=== PATIENT | female | born 1950 | race Caucasian/White ===

== ENCOUNTER 2019-08-08 01:52 | Emergency (ER) | payer MEDICARE, SELFPAY | END 2019-08-08 04:35 | disposition home or self-care (01) | PROVIDERS: Emergency Provider Emergency Medicine; Family Provider Internal Medicine; Visit Provider Emergency Medicine | DX: R42 Dizziness and giddiness (principal); I10 Essential (primary) hypertension; E11.9 Type 2 diabetes mellitus without complications; E78.5 Hyperlipidemia, unspecified; Z86.73 Personal history of transient ischemic attack (TIA), and cerebral infarction without residual deficits; Z88.5 Allergy status to narcotic agent | CPT/HCPCS: 71045; 80053; 83690; 85025; 96361; 96374; 99284; J2405 ==

== ENCOUNTER 2019-09-11 14:00 | Outpatient (CLI) | payer MEDICARE, SELFPAY ==
--- NOTE | 2019-09-11 14:11 | MM_ITS ---
WS: [id number] BILATERAL DIGITAL SCREENING MAMMOGRAPHY WITH CAD CLINICAL INFORMATION: SCREENING HISTORY: Screening mammogram. No current complaints. COMPARISON: August 08, 2018 TECHNIQUE: Bilateral CC and MLO views. FINDINGS: The breasts are composed of heterogeneous fibroglandular density tissue, which can limit the detectio n of small underlying mass lesions. 6 mm increasing density upper outer right breast. Recommend spot compression views and ultrasound if persistent. Left breast is unchanged. MM/[place] [id number] IMPRESSION: BI-RADS: 0-Incomplete: Need additional imaging evaluation FOLLOW UP: Need Additional Imaging
== END 2019-09-11 14:01 | disposition home or self-care (01) ==
LOC: RADSHAW 14:00
PROVIDERS: Family Provider Internal Medicine; PCP Internal Medicine; Visit Provider Internal Medicine
DX: Z12.31 Encounter for screening mammogram for malignant neoplasm of breast (principal)
CPT/HCPCS: 77067

== ENCOUNTER 2019-10-03 10:09 | Outpatient (CLI) | payer MEDICARE, SELFPAY ==
--- NOTE | 2019-10-03 10:12 | US_ITS ---
WS: [id number] RIGHT DIGITAL MAMMOGRAPHY WITH CAD CLINICAL INFORMATION: ABNORMAL MAMMOGRAM COMPARISON: September 11, 2019 TECHNIQUE: 2 views of the right breast were obtained. FINDINGS: The right breast is composed of heterogeneous fibroglandular density tissue, which can limit the dete ction of small underlying mass lesions. Stable 6 mm asymmetric density upper outer right breast. This persists on spot compression views. Ult rasound is pending. ULTRASOUND BREAST RIGHT TECHNIQUE: Ultrasound right breast focused area of concern. CLINICAL INFORMATION: ABNORMAL MAMMOGRAM COMPARISON: None. FINDINGS: Ultrasound right breast at the 12:00 and 10:00 position. Hypoechoic cyst at the 10:00 position measur ing 1.4 x 0.6 x 0.7 CM with a single septation. This is probably benign and recommend 6 month follow- up diagnostic mammography and ultrasound to confirm stability. Tiny hypoechoic cystic lesions at the 12:00 position measuring 4 to 5 mm. US/US breast RT limited* [id number] IMPRESSION: BI-RADS: 3-Probably Benign FOLLOW UP: 6 Month Follow-up
== END 2019-10-03 10:10 | disposition home or self-care (01) ==
LOC: RADSHAW 10:09
PROVIDERS: Family Provider Internal Medicine; PCP Internal Medicine; Visit Provider Internal Medicine
DX: N63.11 Unspecified lump in the right breast, upper outer quadrant (principal); R92.8 Other abnormal and inconclusive findings on diagnostic imaging of breast
CPT/HCPCS: 76642; 77065

== ENCOUNTER → 2019-10-13 11:23 | Outpatient (BNVA) | payer MEDICARE, SELFPAY | PROVIDERS: Family Provider Internal Medicine; PCP Internal Medicine; Visit Provider Otolaryngology | DX: R42 Dizziness and giddiness (principal) | CPT/HCPCS: 99203 ==

== ENCOUNTER 2020-03-13 08:28 | Outpatient (CLI) | payer MEDICARE, SELFPAY ==
--- NOTE | 2020-03-13 08:33 | MM_ITS ---
WS: [id number] RIGHT DIGITAL MAMMOGRAPHY WITH CAD CLINICAL INFORMATION: 6 MO F/U RT BREAST CYST COMPARISON: September 11, 2019 TECHNIQUE: 6 views of the right breast were obtained. FINDINGS: The right breast is composed of heterogeneous fibroglandular density tissue, which can limit the dete ction of small underlying mass lesions. Stable 6 mm asymmetric density upper outer right breast appears unchanged. Ultrasound is pending. ULTRASOUND BREAST RIGHT TECHNIQUE: Ultrasound right breast focused area of concern. CLINICAL INFORMATION: 6 MO F/U RT BREAST CYST COMPARISON: October 03, 2019 FINDINGS: Ultrasound right breast at the 10-12:00 position. Again seen is the hypoechoic cyst at the 1000 posit ion with a single septation unchanged appearance since the prior examination. This measures 1.0 x 0.4 x 1.0 cm slightly decreased in size from previous. A few incidental dilated ducts at the 12:00 posit ion. Findings have a benign appearance and recommend return to annual screening mammography. MM/[place] [id number] IMPRESSION: BI-RADS: 2-Benign FOLLOW UP: 1 Year Follow-up Recommend return to annual screening mammography.
== END 2020-03-13 08:29 | disposition home or self-care (01) ==
LOC: RADSHAW 08:31
PROVIDERS: PCP Internal Medicine; Visit Provider Internal Medicine
DX: R92.8 Other abnormal and inconclusive findings on diagnostic imaging of breast (principal); N60.01 Solitary cyst of right breast
CPT/HCPCS: 76642; 77065

== ENCOUNTER 2020-07-09 14:47 | Outpatient (CLI) | payer MEDICARE, SELFPAY ==
--- NOTE | 2020-07-09 14:56 | USCV_ITS ---
Niru Bowser Age: 70 Gender: F : 1950 Exam Date: 07/09/2020 15:37 Ordering Phys: Genoveva Larsen MD Technologist: Mayo Carvalho [place]am [place] [facility] [place]: MURMUR BP: 128 / 81 HR: 82 Rhythm: Sinus Technical Quality: Fair MEASUREMENTS (Male / Female) Normal Values 2D ECHO LV Diastolic Diameter PLAX 4.5 cm 4.2 - 5.9 / 3.9 - 5.3 cm LV Systolic Diameter PLAX 2.7 cm IVS Diastolic Thickness 1.2 cm 0.6 - 1.0 / 0.6 - 0.9 cm IVS Systolic Thickness 1.8 cm LVPW Diastolic Thickness 1.1 cm 0.6 - 1.0 / 0.6 - 0.9 cm LVPW Systolic Thickness 1.7 cm LVOT Diameter 2.1 cm LV Ejection Fraction 2D Teich 71.4 % LV Ejection Fraction MOD 2C 59.2 % LV Ejection Fraction 2C AL 58.3 % LA Diameter 3.6 cm LA Width 3.4 cm LA Height 4.6 cm RA Width 4.0 cm RA Height 4.4 cm Aorta at Sinotubular Diameter 3.2 cm M-MODE LV Diastolic Diameter MM 5.3 cm 4.2 - 5.9 / 3.9 - 5.3 cm LV Systolic Diameter MM 3.5 cm LV Ejection Fraction MM Teich 63.9 % IVS Diastolic Thickness MM 0.8 cm 0.6 - 1.0 / 0.6 - 0.9 cm IVS Systolic Thickness MM 1.2 cm LVPW Diastolic Thickness MM 1.3 cm 0.6 - 1.0 / 0.6 - 0.9 cm LVPW Systolic Thickness MM 1.7 cm RV Diastolic Diameter MM 1.1 cm Aortic Annulus Diameter 3.4 cm LA Ao Ratio MM 1.2 MV E Point Septal Separation 1.0 cm DOPPLER AV Peak Velocity 169.0 cm/s LVOT Peak Velocity 108.0 cm/s AV Area Cont Eq vti 2.5 cm squared AV Area Cont Eq pk 2.2 cm squared MV Area PHT 5.4 cm squared Mitral E to A Ratio 0.5 MV E' Velocity 31.0 cm/s Mitral E to MV E' Ratio 10.9 Mitral E to LV E' Lateral Ratio 9.9 Mitral E to LV E' Septal Ratio 12.4 TR Peak Velocity 146.0 cm/s TR Peak Gradient 8.5 mmHg TV Peak E Velocity 66.0 cm/s Right Atrial Pressure 3.0 mmHg Pulmonary Artery Systolic Pressu 11.5 mmHg FINDINGS Left Ventricle Normal left ventricular size, systolic function and wall thickness, with no regional wall motion abnormalities. Left ventricular ejection fraction is estimated at 60 %. Grade I diastolic dysfunction (abnormal relaxation filling pattern), normal to mildly elevated filling pressures. Right Ventricle Normal right ventricular size and systolic function. Right ventricular systolic pressure 11.5 mmHg. Right Atrium Normal right atrial size. Left Atrium Normal left atrial size. Mitral Valve Structurally normal mitral valve. No mitral valve stenosis. No significant mitral valve regurgitation. Aortic Valve Structurally normal trileaflet aortic valve. No aortic valve stenosis. Trace aortic valve regurgitation. Tricuspid Valve Structurally normal tricuspid valve. No tricuspid valve stenosis. Trace tricuspid valve regurgitation. Pulmonic Valve Pulmonic valve not well visualized. Trace pulmonary valve regurgitation. Pericardium No pericardial effusion. Aorta Normal size aortic root and proximal ascending aorta. CONCLUSIONS 1. Normal left ventricular size, systolic function and wall thickness, with no regional wall motion abnormalities. Left ventricular ejection fraction is estimated at 60 %. Grade I diastolic dysfunction (abnormal relaxation filling pattern), normal to mildly elevated filling pressures. 2. No significant valvular abnormality. 3. Normal pulmonary artery pressure. 4. No prior similar studies to compare. Serina Childers MD (Electronically Signed) Final Date: 15 July 2020 06:04 S
== END 2020-07-09 14:48 | disposition home or self-care (01) ==
LOC: US 14:50
PROVIDERS: PCP Internal Medicine; Visit Provider Internal Medicine
DX: R01.1 Cardiac murmur, unspecified (principal); I10 Essential (primary) hypertension
CPT/HCPCS: 93306

== ENCOUNTER 2020-07-14 15:52 | Inpatient (IN) | payer MEDICARE, SELFPAY ==
[2020-07-14] VITALS (9 sets, daily range): BP systolic 161–200; BP diastolic 82–142; PULSE 92–107; RESP 16–18; TEMP 36.1; O2SAT 93–99; BMI 36.6
--- NOTE | 2020-07-14 17:17 | CTR_ITS ---
PROCEDURE INFORMATION: Exam: CT Abdomen And Pelvis With Contrast Exam date and time: 07/14/2020 8:45 PM Age: 70 years old Clinical indication: Abdominal pain; Generalized; Prior surgery; Surgery date: 6+ months; Surgery type: Myofascial sarcoma; Patient HX: C/O abd pain - distention - n/v TECHNIQUE: Imaging protocol: Computed tomography of the abdomen and pelvis with intravenous contrast. Radiation optimization: All CT scans at this facility use at least one of these dose optimization techniques: automated exposure control; mA and/or kV adjustment per patient size (includes targeted exams where dose is matched to clinical indication); or iterative reconstruction. Contrast material: OMNI 300; Contrast volume: 95 ml; Contrast route: INTRAVENOUS (IV); COMPARISON: CT abdomen pelvis wo con [id number] 07/15/2018 3:10 PM RADIATION DOSE METRICS: Total DLP (mGy-cm): 1103.84 FINDINGS: Lungs: Mild atelectasis at the lung bases. Liver: Decreased hepatic density is noted, consistent with hepatic steatosis. Gallbladder and bile ducts: No calcified stones. No ductal dilation. Pancreas: The pancreas is normal in appearance. No pancreatic duct dilatation. Spleen: Unremarkable. No splenomegaly. Adrenal glands: The adrenal glands appear within normal limits. Kidneys and ureters: 4.1 cm minimally septated, benign-appearing right renal cyst. No hydronephrosis. Incidental note made of duplex right renal collecting system. Stomach and bowel: Multiple dilated small bowel loops with air-fluid levels. The distal small bowel demonstrates mural thickening and mucosal enhancement, as it tapers to a smaller caliber. This suggests nonspecific inflammation of the distal small bowel, resulting small bowel obstruction. No acute abnormality/inflammatory change of the colon. Appendix: The appendix is normal in appearance. No evidence of appendicitis. Intraperitoneal space: No pneumoperitoneum. No significant fluid collection. Vasculature: Mild atherosclerosis of the abdominal aorta. No aneurysm. Lymph nodes: No pathologically enlarged lymph nodes are demonstrated. Urinary bladder: Unremarkable as visualized. Reproductive: The uterus is not visualized, consistent with hysterectomy. Bones/joints: Mild degenerative spine changes. No acute osseous abnormality. Soft tissues: Unremarkable. CT/CT abdomen pelvis w con* [id number] IMPRESSION: 1. Multiple dilated small bowel loops with air-fluid levels. The distal small bowel demonstrates mural thickening and mucosal enhancement, as it tapers to a smaller caliber. This suggests nonspecific inflammation of the distal small bowel, resulting small bowel obstruction. No small bowel perforation demonstrated. No abscess. 2. Decreased hepatic density is noted, consistent with hepatic steatosis. COMMENTS: Consistent with the [employer]'s Incidental Findings Committee white paper (J Am No Radiol 2018): Any incidental renal lesion less than 1 cm or classified as too small to characterize, or any incidental cystic renal lesion characterized as simple-appearing, is likely benign. No follow-up imaging is recommended for these lesions per consensus recommendations based on imaging criteria. Radiation Dose CTDIVOL = (mGy): DLP = 1103.84 (mGy-cm)
[2020-07-14] MEDS: ondansetron 2 mg/ML SDV 2 mL 4 MG IVP ×2 (18:28→20:45)
[2020-07-14] MEDS: labetalol 5 mg/mL SDV 20mL 10 MG IVP (18:29)
--- NOTE | 2020-07-14 18:31 | W.ED.ABDPA2 ---
HPI - Abdominal Pain General: Chief Complaint: Abdominal Pain Stated Complaint: ABDOMEN PAIN, CONSTIPATION Time Seen by Provider: 07/14/20 16:57 History of Present Illness: HPI narrative: 70-year-old female with belly pain that is diffuse, with some constipation symptoms. She notes that even with intake of water, but tries to come back up . She is worried, that I have a blockage . No fever. She did use a suppository last night with some production of stool. She notes some red blood with the stool. She has a history of an abdominal mass removal. MD elicited complaint: abdominal pain Pertinent past history: constipation and other Onset (ago): day(s) (1-2) Pain Consistency: constant Location: Diffuse Quality: aching and fullness Radiation: none Migration to: no migration Relieving factors: nothing Associated Symptoms: Reports belching, constipation and GI cramping; Denies dysuria, fever(s) and hematuria Review of Systems Const: Denies: fever(s) Eyes: Denies: change in vision ENMT: Denies: odynophagia or sinus pain Card: Denies: chest pain, palpitations or irregular heart rhythm Resp: Denies: dyspnea, productive cough, non-productive cough or wheezing GI: Reports: constipation, GI cramping and belching : Denies: dysuria or hematuria Musc: Reports: back pain; Denies: neck pain Skin/Breast: Denies: rash or erythema Neuro: Denies: headache(s), dizziness or vertigo Psych: Denies: anxiety PFSH ED PFSH: Medical History (Updated 07/15/20 @ 00:44 by Ivan Simth DO) Vertigo Family History Mother , AT AGE 73-DIABETES,THYROID DISEASE Diabetes Father , FATHER AT AGE 85-DIABETES Diabetes Social History Smoking and tobacco status: never smoked Alcohol intake: never Physical Exam Const: GENERAL APPEARANCE: ill appearing ORIENTATION/CONSCIOUSNESS: Yes oriented to person, Yes oriented to place and Yes oriented to time HENMT: COMMON NORMALS: normocephalic, external ears normal and Normal external nose present HEAD & SCALP: normocephalic FACE & SINUS: normal facial exam NOSE: Normal external nose present and No nasal discharge present EXTERNAL EAR: Yes external ears normal Eye: COMMON NORMALS: Equal, round and reactive pupils present, EOMs intact bilaterally and conjunctivae normal EYELID: eyelids normal CONJUNCTIVA: Yes conjunctivae normal PUPIL: Yes Equal, round and reactive pupils present Neck/C-Spine: GENERAL: No tracheal deviation Chest: COMMONS NORMALS: normal inspection of the chest CHEST: No tenderness Resp: COMMON NORMALS: clear to auscultation bilaterally EFFORT & INSPECTION: No tachypneic, No respiratory distress, No retractions, No uses accessory muscles and No tracheal deviation AUSCULTATION: clear to auscultation bilaterally, no rhonchi, no wheezes and lung sounds not diminished Cardio: COMMON NORMALS: regular rate and regular rhythm RATE: regular rate RHYTHM: regular rhythm HEART SOUNDS: no murmurs PERIPHERAL PULSES: radial pulses present GI: INSPECTION: Yes abdominal distension AUSCULTATION: No Hyperactive bowel sounds present and Yes Hypoactive bowel sounds present PALPATION: Yes Guarding due to palpation present (GI) and No Rigid due to palpation PERCUSSION: no dullness to percussion and tympanic to percussion Neuro: SENSORIUM/ORIENTATION: Yes oriented to person, Yes oriented to place and Yes oriented to time Psych: COMMON NORMALS: mental status grossly normal Skin: COMMON NORMALS: no rashes or lesions noted GENERAL SKIN EXAM: no rashes or lesions noted Course Consultations: Consultation #1: rajan Consultation #2: renard Vital Signs: Vital signs: Vital Signs Temperature 97.0 F L 07/14/20 16:11 Pulse Rate 101 H 07/15/20 00:00 Respiratory Rate 17 07/15/20 00:00 Blood Pressure 152/84 07/15/20 00:00 Pulse Oximetry 94 07/15/20 00:00 MDM - Abdominal Pain MDM Narrative: Medical decision making narrative: 70-year-old female with belly pain and distention as well as vomiting. White blood cell count 11. By CT, she has a focally inflamed segment of small bowel causing a high-grade bowel obstruction. NG tube was placed in the ER. Surgery has been consulted.. Awaiting hospitalist admission. Lab Data: Labs: Lab Results 07/14/20 07/14/20 07/14/20 Range/Units 18:00 20:27 20:27 WBC 11.0 H (4.0-10.0) 10^3/ uL RBC 5.23 (4.1-5.3) 10^6/u L Hgb 14.1 (11.5-15.3) g/dL Hct 45.8 (37.0-47.0) % MCV 87.6 (81-99) fL MCH 27.0 L (28.0-34.0) pg MCHC 30.8 (30.0-36.0) g/dL RDW 15.3 H (12.1-15.1) % Plt Count 236 (130-400) 10^3/c mm MPV 10.7 H (7.4-10.4) fL Neut % (Auto) 81.2 % Lymph % (Auto) 11.7 % Hooker % (Auto) 5.7 % Eos % (Auto) 1.0 % Baso % (Auto) 0.2 % Neut # (Auto) 8.91 H (1.8-7.7) 10^3/u L Lymph # (Auto) 1.3 (0.8-4.8) 10^3/u L Hooker # (Auto) 0.6 (0.2-0.9) 10^3/u L Eos # (Auto) 0.1 (0.0-0.8) 10^3/u L Baso # (Auto) 0.0 (0.0-0.1) 10^3/u L Nucleated RBC % (a uto) 0 % Nucleated RBCs # 0.0 /100WBC Sodium 139 (136-145) mmol/L Potassium 3.8 (3.5-5.1) mmol/L Chloride 100 (98-107) mmol/L Carbon Dioxide 30 H (22-29) mmol/L Anion Gap 12.8 (5-19) BUN 17 (8-23) mg/dL Creatinine 0.7 (0.5-0.9) mg/dL GFR Calculation Not Reportable Glucose 179 H (65-115) mg/dL Calculated Osmolal ity 294 (285-295) mOsm/k g Calcium 9.2 (8.5-10.5) mg/dL Total Bilirubin 0.4 (0.15-1.2) mg/dL AST 16 (0-32) U/L ALT 22 (0-33) U/L Alkaline Phosphata se 87 (35-105) IU/L C-Reactive Protein 29.5 H (0.0-4.9) mg/L Total Protein 6.4 L (6.6-8.7) g/dL Albumin 3.6 (3.5-5.2) g/dL Globulin 2.8 (1.3-4.6) g/dL Lipase 31 (13-60) U/L Urine Color Yellow (Yellow) Urine Appearance Cloudy (CLEAR) Urine pH 5 (5-7) Ur Specific Gravit y 1.020 (1.005-1.030) Urine Protein Trace (Negative) Urine Glucose (UA) Norm (Normal) Urine Ketones Negative (Negative) Urine Blood Neg (Negative) Urine Nitrate Negative (Negative) Urine Bilirubin Neg (Negative) Urine Urobilinogen Norm (Negative) mg/dL Ur Leukocyte Keke ase 2+ H (Negative) Urine RBC 0-4 H (0-2) /hpf Urine WBC 25-40 H (0-5) /hpf Ur Squamous Epith Cells 10-15 H (0-5) /hpf Calcium Oxalate Cr ystal 80-100 H /hpf Amorphous Sediment Not Reportable Urine Bacteria 1+ H (NONE) /hpf Discharge Plan Discharge Patient Disposition: Admitted As Inpatient Clinical Impression: Small bowel obstruction Condition: Stable Coding Level of Care Code ED Patient Safety Tech for Nataliia Fwd Exam Comprehensive
[2020-07-14] MEDS: fentaNYL 50 mcg/mL INJ 2mL IVP (18:33)
[2020-07-14] MEDS: sodium chloride 0.9% 1,000 ML 999 ML IV (18:36)
[2020-07-14] MEDS: hyDRALAzine 20 mg/mL INJ 1 mL IVP (19:30)
[2020-07-14] MEDS: amlodipine 10 mg Tablet PO (19:30)
[2020-07-14] MEDS: nitroglycerin 1 gm/inch oint Pkt 2 INCH TOPICAL (19:32)
[2020-07-14 20:43] LABS: Basophils % 0.2 %; Eosinophils # 0.1 10^3/uL (0.0-0.8); Hematocrit 45.8 % (37.0-47.0); Hemoglobin 14.1 g/dL (11.5-15.3); Lymphocytes # 1.3 10^3/uL (0.8-4.8); Lymphocytes % 11.7 %; Mean Corpuscular HGB Conc 30.8 g/dL (30.0-36.0); Mean Corpuscular Volume 87.6 fL (81-99); Mean Platelet Volume 10.7 fL (7.4-10.4); Monocytes # 0.6 10^3/uL (0.2-0.9); Monocytes % 5.7 %; Neutrophils # 8.91 10^3/uL (1.8-7.7); Neutrophils % 81.2 %; Nucleated Red Blood Cells % 0 %; Platelet Count 236 10^3/cmm (130-400); Red Blood Count 5.23 10^6/uL (4.1-5.3); Red Cell Distribution Width 15.3 % (12.1-15.1)
[2020-07-14 21:22] LABS: Alanine Aminotransferase 22 U/L (0-33); Albumin Level 3.6 g/dL (3.5-5.2); Alkaline Phosphatase 87 IU/L (35-105); Aspartate Amino Transferase 16 U/L (0-32); Blood Urea Nitrogen 17 mg/dL (8-23); C Reactive Protein 29.5 mg/L (0.0-4.9); Calcium 9.2 mg/dL (8.5-10.5); Carbon Dioxide 30 mmol/L (22-29); Chloride 100 mmol/L (98-107); Globulin 2.8 g/dL (1.3-4.6); Glucose 179 mg/dL (65-115); Lipase 31 U/L (13-60); Osmolality Calculated 294 mOsm/kg (285-295); Sodium 139 mmol/L (136-145); Total Bilirubin 0.4 mg/dL (0.15-1.2); Total Protein 6.4 g/dL (6.6-8.7)
[2020-07-14] MEDS: iohexol 300 mg/mL 100 mL Btl IV (21:38)
[2020-07-14 21:40] LABS: Anion Gap 12.8 (5-19); Potassium 3.8 mmol/L (3.5-5.1)
[2020-07-14 21:42] LABS: Add Urine Microscopic? YES; Bilirubin Urine Neg (Negative); Blood Urine Neg (Negative); Glucose Urine UA Norm (Normal); Ketones Urine Negative (Negative); Leukocyte Esterase Urine 2+ (Negative); Nitrate Urine Negative (Negative); Protein Urine Trace (Negative); Urine Appearance Cloudy (CLEAR); Urine Color Yellow (Yellow); Urobilinogen Urine Norm (Negative); pH Urine 5 (5-7)
[2020-07-14 21:52] LABS: Add Urine Culture? No; Bacteria Urine 1+ /hpf; Calcium Oxalate Crystals Urine 80-100 /hpf; RBC Urine 0-4 /hpf (0-2); WBC Urine 25-40 /hpf (0-5)
--- NOTE | 2020-07-14 23:22 | XR_ITS ---
WS: [id number] XR chest 1V portable [id number] REASON FOR EXAM: ng tube FINDINGS: Nasogastric tube is in place the tip is in position consistent with the body of the stomach. Other than the nasogastric tube, the chest is unchanged compared to previous examination of 9. Thoracic aorta is mildly tortuous. The heart size is normal. Mild prominence of the interstitial bronchovascular markings. Probable small area of linear atelectas is in the left lower lung, otherwise no acute pulmonary parenchymal or pleural abnormality noted. XR/XR chest 1V portable [id number] IMPRESSION: Nasogastric tube placement as above. No acute chest abnormality.
[2020-07-14] MEDS: cetacaine Spray 5 gm Can 1 SPRAY TOPICAL (23:24)
[2020-07-15] VITALS (14 sets, daily range): BP systolic 121–187; BP diastolic 73–104; PULSE 101–118; RESP 16–18; TEMP 36.6–38.2; O2SAT 90–94
[2020-07-15] MEDS: promethazine 25 mg/mL SDV 1 mL IM (00:32)
[2020-07-15] MEDS: piperacillin-tazobactam 3.375 GM in sodium chloride 0.9% (plus) 50 ML IV (01:27)
--- NOTE | 2020-07-15 01:27 | PM.HP ---
Providers/Chief Complaint Primary Care Provider: Genoveva Larsen MD Chief Complaint: ABDOMEN PAIN, CONSTIPATION History of Present Illness Niru Bowser is a 70 year old female with past medical history of hypothyroidism, hypertension,and with chief complaint of worsening generalized abdominal pain for the last 2 days, as well as nausea and vomiting as well as some constipation, she is unable to keep anything down. She has a prior history of abdominal mass surgery(in 2016 details of which are not available at this present time). She is also complaining of occasional minimal bright red blood in the stool. Upon arrival in the ER: CT abdomen pelvis w con: Multiple dilated small bowel loops with air-fluid levels. The distal small bowel demonstrates mural thickening and mucosal enhancement, as it tapers to a smaller caliber. This suggests nonspecific inflammation of the distal small bowel, resulting small bowel obstruction. No small bowel perforation demonstrated. No abscess. Pertinent labs: WBC : 05136 , urinalysis: Dirty: Urine leukocyte esterase positive, urine WBC: 25-40 Lactic acid: 1.4, lipase: 31 NG tube was placed in the ER, and placed to continuous suction.She received a dose of zosyn in ER. Review of Systems Const: Denies: fever(s) or chills Card: Denies: palpitations, edema, swelling of feet/ankles or leg pain with exertion Resp: Denies: dyspnea, productive cough, wheezing or pain on inspiration : Denies: flank pain Musc: Denies: back pain, extremity pain or extremity swelling Neuro: Denies: headache(s), difficulty walking or confusion Medications/Allergies Home Medications Medication Instructions Recorded Confirmed Last Taken Type ciprofloxacin 0.3 %-dexamethasone 4 drop EAR-BOTH BID@0800,1800 10/13/19 07/14/20 07/13/20 History 0.1 % ear drops,suspension levothyroxine 50 mcg capsule 50 mcg PO DAILY@0500 10/13/19 07/14/20 07/14/20 History rosuvastatin 5 mg tablet 5 mg PO DAILY@0900 10/13/19 07/14/20 07/14/20 History hydrochlorothiazide 25 mg PO DAILY@0900 07/14/20 07/14/20 07/14/20 History metoprolol tartrate 25 mg PO BID@0900,2100 07/14/20 07/14/20 07/14/20 History Allergies Allergy/AdvReac Type Severity Reaction Status Date / Time ciprofloxacin [From Cipro] Allergy Unknown Verified 08/07/19 16:18 codeine Allergy Unknown Verified 08/07/19 16:18 hydrochlorothiazide Allergy Unknown Verified 08/07/19 16:18 [From Hyzaar] losartan Allergy unknown Verified 08/07/19 16:18 meperidine [From Demerol] Allergy Unknown Verified 08/07/19 16:19 Opioids-Meperidine and Allergy unknown Verified 08/07/19 16:18 Related quinapril Allergy unknown Verified 08/07/19 16:18 tramadol Allergy Unknown Verified 08/07/19 16:18 PFSH Acute PFSH: Medical History (Updated 07/15/20 @ 07:12 by Eyal Merchant MD) Diabetes Diet controlled Hypertension Hypothyroidism Vertigo Surgical History (Updated 07/15/20 @ 07:12 by Eyal Merchant MD) Abdominal tumor Operated on by gynecologic surgeon in [place] 2016 History of bladder suspension procedure History of hysterectomy / BSO Normal colonoscopy 2016 ([place]) Family History Mother , AT AGE 73-DIABETES,THYROID DISEASE Diabetes Father , FATHER AT AGE 85-DIABETES Diabetes Social History Smoking and tobacco status: never smoked Alcohol intake: never Vitals/I&O/Wt Last Vital Signs Temp 97.0 F L 07/14/20 16:11 Pulse 101 H 07/15/20 00:00 Resp 17 07/15/20 00:00 BP 152/84 07/15/20 00:00 Pulse Ox 94 07/15/20 00:00 07/14/20 07/14/20 07/15/20 14:59 22:59 06:59 Intake Total 1000 / 1000 Balance 1000 / 1000 Weight last 48 hrs Weight 90.718 kg Physical Exam Const: COMMON NORMALS: patient oriented x3 HENMT: COMMON NORMALS: normocephalic and atraumatic HEAD & SCALP: normocephalic and atraumatic Eye: COMMON NORMALS: no scleral icterus Chest: COMMONS NORMALS: normal inspection of the chest CHEST: Yes Symmetrical chest wall rise Resp: COMMON NORMALS: normal respiratory effort and clear to auscultation bilaterally EFFORT & INSPECTION: Yes symmetric chest movement AUSCULTATION: clear to auscultation bilaterally Cardio: COMMON NORMALS: regular rate, regular rhythm, S1 normal heart sound present, S2 normal heart sound present, No gallops present (Cardio), No murmurs present (Cardio), No rub (Cardio) and Peripheral pulses 2+ throughout RATE: regular rate RHYTHM: regular rhythm HEART SOUNDS: S1 normal heart sound present and S2 normal heart sound present PERIPHERAL PULSES: Peripheral pulses 2+ throughout GI: COMMON NORMALS: no masses INSPECTION: Yes normal to inspection AUSCULTATION: Yes Hypoactive bowel sounds present RECTAL EXAM: deferred OTHER: Generalized abdominal tenderness present , no guarding no rigidity, no rebound tenderness.Hypoactive BS present. : COMMON NORMALS: Yes no CVA tenderness BLADDER/KIDNEY EXAM: Yes no CVA tenderness Back/Pelvis: COMMON NORMALS: no CVA tenderness Extremity: COMMON NORMALS: no clubbing, cyanosis or edema and no pedal edema Neuro: COMMON NORMALS: patient oriented x3 Data : 07/14/20 20:27 07/15/20 05:42 A&P Assessment and plan (1) Small bowel obstruction: CT abdomen pelvis w con: Multiple dilated small bowel loops with air-fluid levels. The distal small bowel demonstrates mural thickening and mucosal enhancement, as it tapers to a smaller caliber. This suggests nonspecific inflammation of the distal small bowel, resulting small bowel obstruction. No small bowel perforation demonstrated. No abscess. Patient complaining of generalized abdominal pain, nausea and vomiting/Has hypoactive B/S likely ileus no clear definitive sign of obstruction on C.T abdomen Will continue NG tube to suction. N.p.o. Surgery consult. 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 Status: Acute (4) Hypertension: Continue hydrochlorothiazide and metoprolol Status: Acute (5) Hypothyroidism: Continue levothyroxine Status: Acute Additional A&P Information DVT prophylaxis: Lovenox 40 subcu daily CODE STATUS: Full code Attestations Medical Necessity Statement*: Patient needs to be in the hospital for the management of Ileus.Anticipated length of stay greater then 2 midnights. 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
[2020-07-15 02:01] LABS: Lactate (Lactic Acid level) 1.4 mmol/L (0.5-2.2)
[2020-07-15] MEDS: cefTRIAXone 1,000 MG in sodium chloride 0.9% (plus) 50 ML 100 MG IV (03:21)
[2020-07-15] MEDS: enoxaparin 40 mg/0.4 mL Syringe SUBCUT (03:22)
[2020-07-15] MEDS: sodium chloride 0.9% 1,000 ML 75 ML IV (03:29)
[2020-07-15] MEDS: levothyroxine 50 mcg Tablet PO (05:10)
[2020-07-15 06:19] LABS: Alanine Aminotransferase 18 U/L (0-33); Albumin Level 3.6 g/dL (3.5-5.2); Alkaline Phosphatase 77 IU/L (35-105); Anion Gap 12.9 (5-19); Aspartate Amino Transferase 11 U/L (0-32); Blood Urea Nitrogen 19 mg/dL (8-23); Calcium 9.1 mg/dL (8.5-10.5); Carbon Dioxide 30 mmol/L (22-29); Chloride 103 mmol/L (98-107); Globulin 2.1 g/dL (1.3-4.6); Glucose 154 mg/dL (65-115); Osmolality Calculated 299 mOsm/kg (285-295); Potassium 3.9 mmol/L (3.5-5.1); Sodium 142 mmol/L (136-145); Total Bilirubin 0.3 mg/dL (0.15-1.2); Total Protein 5.7 g/dL (6.6-8.7)
--- NOTE | 2020-07-15 06:47 | P.CONIM_ITS ---
Providers/Reason For Consult Consulting Physican/Specialty*: General Surgery Eyal Merchant MD Reason for Consult*: Bowel obstruction. Attending Physician: Abner Vines MD Primary Care Provider: Genoveva Larsen MD History of Present Illness History of Present Illness Niru Bowser is a 70 year old female admitted last night with a possible small bowel obstruction. She says that she has chronic constipation, but it seemed to be a little bit worse last week. She takes prune juice and a fiber supplement every night. She said she had to use some suppositories 2 days ago in order to have a small hard bowel movement. She cannot remember the last time she passed flatus. She said she started having some abdominal pain a couple of days ago. She says it was all over . She developed some nausea and vomiting yesterday without any evidence of hematemesis. She has not had any fevers and says no one else in the household has been ill. A CAT scan in the emergency department showed some possible inflammatory changes of the small bowel with a resulting ileus/obstructive process. A nasogastric tube was inserted and the patient was admitted. The patient says this has never happened to her before. She is feeling a little bit better this morning. Of note, the patient apparently has a history multiple medicinal adverse reactions/allergies but she cannot remember any of the effects that she had from any of the medications. Review of Systems General: Reports: 10 or more systems reviewed and unremarkable except in HPI and below Const: Denies: fever(s) Resp: Denies: dyspnea GI: Reports: abdominal pain, nausea, vomiting and constipation (Chronic) Neuro: Reports: vertigo and other (Right-sided TMJ) Meds/Allergies Home Medications and Allergies Home Medications Medication Instructions Recorded Confirmed Last Taken Type ciprofloxacin 0.3 %-dexamethasone 4 drop EAR-BOTH BID@0800,1800 10/13/19 07/14/20 07/13/20 History 0.1 % ear drops,suspension levothyroxine 50 mcg capsule 50 mcg PO DAILY@0500 10/13/19 07/14/20 07/14/20 History rosuvastatin 5 mg tablet 5 mg PO DAILY@0900 10/13/19 07/14/20 07/14/20 History hydrochlorothiazide 25 mg PO DAILY@0900 07/14/20 07/14/20 07/14/20 History metoprolol tartrate 25 mg PO BID@0900,2100 07/14/20 07/14/20 07/14/20 History Allergies Allergy/AdvReac Type Severity Reaction Status Date / Time ciprofloxacin [From Cipro] Allergy Unknown Verified 08/07/19 16:18 codeine Allergy Unknown Verified 08/07/19 16:18 hydrochlorothiazide Allergy Unknown Verified 08/07/19 16:18 [From Hyzaar] losartan Allergy unknown Verified 08/07/19 16:18 meperidine [From Demerol] Allergy Unknown Verified 08/07/19 16:19 Opioids-Meperidine and Allergy unknown Verified 08/07/19 16:18 Related quinapril Allergy unknown Verified 08/07/19 16:18 tramadol Allergy Unknown Verified 08/07/19 16:18 Current Medications Current Medications Generic Name Dose Route Start Last Admin Trade Name Freq PRN Reason Stop Dose Admin Enoxaparin Sodium 40 mg 07/15/20 02:00 07/15/20 03:22 Enoxaparin 40 Mg/0.4 Ml Syringe SUBCUT 40 mg Q24H JOSE LUIS Administration Sodium Chloride 1,000 mls @ 75 mls/hr 07/15/20 01:30 07/15/20 03:29 Sodium Chloride 0.9% IV 75 mls/hr .[id number] JOSE LUIS Administration Ceftriaxone Sodium 1,000 mg/ 50 mls @ 100 mls/hr 07/15/20 02:00 07/15/20 03:21 Sodium Chloride IV 100 mls/hr Q24H JOSE LUIS Administration Protocol Levothyroxine Sodium 50 mcg 07/15/20 05:00 07/15/20 05:10 Levothyroxine 50 Mcg Tablet PO 50 mcg DAILY@0500 JOSE LUIS Administration PFSH Acute PFSH: Medical History (Updated 07/15/20 @ 07:10 by Eyal Merchant MD) Diabetes Diet controlled Hypertension Hypothyroidism Vertigo Surgical History (Updated 07/15/20 @ 07:12 by Eyal Merchant MD) Abdominal tumor Operated on by gynecologic surgeon in [place] 2016 History of bladder suspension procedure History of hysterectomy / BSO Normal colonoscopy 2016 ([place]) Family History Mother , AT AGE 73-DIABETES,THYROID DISEASE Diabetes Father , FATHER AT AGE 85-DIABETES Diabetes Social History Smoking and tobacco status: never smoked Alcohol intake: never Vitals/I&O/Wt Last Vital Signs Temp 99.4 F 07/15/20 04:00 Pulse 103 H 07/15/20 04:00 Resp 16 07/15/20 04:00 BP 121/74 07/15/20 04:00 Pulse Ox 91 07/15/20 04:00 07/14/20 07/14/20 07/15/20 14:59 22:59 06:59 Intake Total 1000 / 1050 50 / 1050 Balance 1000 / 1050 50 / 1050 Weight last 48 hrs Weight 200 lb Physical Exam Narrative: EXAM NARRATIVE: The patient was encountered in her hospital room. She does not appear to be in any obvious distress. It somewhat difficult jayne ping her on subject when asking her questions; she tends to start talking about other issues. The pupils seem equal. No carotid bruits are heard. The lungs are clear anteriorly. The heart is regular. The abdomen is moderately obese but is soft. Bowel sounds are very infrequent. She has some scattered tenderness about the abdomen that is not always reproducible. I cannot feel any obvious masses. The extremities reveal no edema. Neurologically the patient appears to be grossly intact. Data Imaging^: CT Abd/Pel: Radiologist's impression: CT scan abdomen/pelvis 07/14/2020 IMPRESSION: 1. Multiple dilated small bowel loops with air-fluid levels. The distal small bowel demonstrates mural thickening and mucosal enhancement, as it tapers to a smaller caliber. This suggests nonspecific inflammation of the distal small bowel, resulting small bowel obstruction. No small bowel perforation demonstrated. No abscess. 2. Decreased hepatic density is noted, consistent with hepatic steatosis. A&P Assessment and plan (1) Small bowel obstruction: CT reviewed. The patient seems to have some enteritis changes in the distal small bowel. I do not see an obvious transition point. I have to wonder if this is more of an ileus given the findings on exam. She does have some possible evidence of a urinary tract infection and continues on antibiotics. Continue NG tube. I will be happy to continue following the patient while she is hospitalized. Status: Acute Consult Attestations Medical Necessity Statement: See admitting service's notation. Coding Level of Care Code Acute Office Technology Instructor for g Fwd Diagnoses Small bowel obstruction K56.526
[2020-07-15] MEDS: sodium chlor 0.45% +KCl 20 mEq 20 MEQ/1,000 ML BAG 100 MEQ IV ×2 (08:01→17:46)
[2020-07-15] MEDS: ciprofloxacin-dexameth Otic Susp 7.5 mL Btl 4 DROP EAR-BOTH ×2 (08:46→17:47)
[2020-07-15] MEDS: atorvastatin 40 mg Tablet 20 MG PO (08:47)
[2020-07-15] MEDS: metoprolol tartrate 25 mg Tablet PO ×2 (08:47→20:39)
[2020-07-15] MEDS: hydroCHLOROthiazide 25 mg Tablet PO (08:47)
[2020-07-15 09:44] LABS: Basophils % 0.3 %; Eosinophils % 0.5 %; Hematocrit 40.2 % (37.0-47.0); Hemoglobin 12.4 g/dL (11.5-15.3); Lymphocytes # 0.6 10^3/uL (0.8-4.8); Lymphocytes % 7.4 %; Mean Corpuscular HGB Conc 30.8 g/dL (30.0-36.0); Mean Corpuscular Hemoglobin 27.1 pg (28.0-34.0); Mean Corpuscular Volume 87.8 fL (81-99); Mean Platelet Volume 10.8 fL (7.4-10.4); Monocytes # 0.5 10^3/uL (0.2-0.9); Monocytes % 5.7 %; Neutrophils # 6.74 10^3/uL (1.8-7.7); Neutrophils % 85.7 %; Nucleated Red Blood Cells % 0 %; Platelet Count 230 10^3/cmm (130-400); Red Blood Count 4.58 10^6/uL (4.1-5.3); Red Cell Distribution Width 15.5 % (12.1-15.1); White Blood Count 7.9 10^3/uL (4.0-10.0)
--- NOTE | 2020-07-15 14:45 | P.PN_ITS ---
Subjective Subjective: Interval history: Patient did not have any bowel movement or flatulence since admission. c/o mild abdominal pain. No fever, chills. Noted nausea since ng clamped in am to use restroom. Vitals/I&O/Wt Last Vital Signs Temp 98.0 F 07/15/20 11:36 Pulse 112 H 07/15/20 11:36 Resp 18 07/15/20 11:36 BP 173/93 07/15/20 11:36 Pulse Ox 90 07/15/20 11:36 07/14/20 07/15/20 07/15/20 22:59 06:59 14:59 Intake Total 1000 / 1000 100 / 1100 Output Total 100 / 100 Balance 1000 / 1000 100 / 1100 -100 / -100 Weight last 48 hrs Weight 90.718 kg Physical Exam Narrative: EXAM NARRATIVE: General : alert, awake and oriented x 3, no distress HEENT: Grossly unremarkable. NG in place Chest : non-labored respiration CVS : NSR ABD : Non-distended no tenderness Ext : No edema Data : 07/15/20 09:20 07/15/20 05:42 A&P Assessment and plan (1) Small bowel obstruction: CT abdomen pelvis w con: Multiple dilated small bowel loops with air-fluid levels. The distal small bowel demonstrates mural thickening and mucosal enhancement, as it tapers to a smaller caliber. This suggests nonspecific inflammation of the distal small bowel, resulting small bowel obstruction. No small bowel perforation demonstrated. No abscess. 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 Status: Acute (4) Hypertension: Stable On HCTZ/Metoprolol at home Will use prn meds while NPO Status: Acute (5) Hypothyroidism: Continue levothyroxine Status: Acute Additional A&P Information DVT prophylaxis: Lovenox 40 SQ daily CODE STATUS: Full code Attestations Medical Necessity Statement*: Will require additional day in hospital for management of ongoing bowel obstruction. Time Spent in Patient Care: Greater than 35 minutes (>than 50% of time spent in counselling and/or direct pt care on unit) . 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
[2020-07-15] MEDS: acetaminophen 325 mg Tablet 650 MG PO (16:51)
[2020-07-16] VITALS (10 sets, daily range): BP systolic 148–193; BP diastolic 79–99; PULSE 102–118; RESP 17–19; TEMP 36.6–36.9; O2SAT 90–96
[2020-07-16] MEDS: acetaminophen 325 mg Tablet 650 MG PO (02:00)
[2020-07-16] MEDS: ondansetron 2 mg/ML SDV 2 mL 4 MG IVP (02:01)
[2020-07-16] MEDS: enoxaparin 40 mg/0.4 mL Syringe SUBCUT (02:04)
[2020-07-16] MEDS: cefTRIAXone 1,000 MG in sodium chloride 0.9% (plus) 50 ML 100 MG IV (02:07)
[2020-07-16] MEDS: levothyroxine 50 mcg Tablet PO (04:06)
[2020-07-16 05:24] LABS: Basophils % 0.3 %; Eosinophils # 0.1 10^3/uL (0.0-0.8); Hemoglobin 12.8 g/dL (11.5-15.3); Lymphocytes # 0.6 10^3/uL (0.8-4.8); Lymphocytes % 9.7 %; Mean Corpuscular HGB Conc 30.5 g/dL (30.0-36.0); Mean Corpuscular Hemoglobin 26.9 pg (28.0-34.0); Mean Corpuscular Volume 88.4 fL (81-99); Mean Platelet Volume 11.4 fL (7.4-10.4); Monocytes # 0.4 10^3/uL (0.2-0.9); Monocytes % 6.2 %; Neutrophils % 82.6 %; Nucleated Red Blood Cells % 0 %; Platelet Count 206 10^3/cmm (130-400); Red Blood Count 4.75 10^6/uL (4.1-5.3); Red Cell Distribution Width 15.6 % (12.1-15.1); White Blood Count 6.3 10^3/uL (4.0-10.0)
[2020-07-16] MEDS: sodium chlor 0.45% +KCl 20 mEq 20 MEQ/1,000 ML BAG 100 MEQ IV (05:27)
[2020-07-16 05:48] LABS: INR 1.09 (0.8-1.2); Partial Thromboplastin Time 33.5 SECONDS (23.9-36.7)
[2020-07-16 05:58] LABS: Magnesium 2.1 mg/dL (1.7-2.3)
[2020-07-16 06:01] LABS: Procalcitonin 0.17 ng/mL (0-0.5)
--- NOTE | 2020-07-16 07:44 | PM.PN ---
Subjective Subjective: Interval history: The patient says she is feeling better today. She has started to pass some flatus and is less sore in her abdomen but still has some tenderness. She would like to drink some water. Vitals/I&O/Wt Last Vital Signs Temp 98.4 F 07/16/20 04:00 Pulse 118 H 07/16/20 04:00 Resp 18 07/16/20 04:00 BP 174/91 07/16/20 04:00 Pulse Ox 90 07/16/20 04:00 07/15/20 07/16/20 07/16/20 22:59 06:59 14:59 Intake Total 1975 / 2975 1000 / 2975 Output Total 1100 / 1400 200 / 1400 100 / 100 Balance 875 / 1575 800 / 1575 -100 / -100 Weight last 48 hrs Weight 200 lb Physical Exam Narrative: EXAM NARRATIVE: Bowel sounds are a little bit more active today. She does appear to be less tender to my exam. Data : 07/16/20 04:10 07/15/20 05:42 A&P Assessment and plan (1) Small bowel obstruction: I am going to have nursing clamp the patient's NG tube and see how she does. Ambulate. Status: Acute Attestations Medical Necessity Statement*: See admitting service's notation. Coding Level of Care Code Acute Mortgage Protection Specialist for Nataliia Alcala Diagnoses Small bowel obstruction K56.609
--- NOTE | 2020-07-16 09:03 | PC.CHAP ---
Pastoral Care Encounter/Spiritual Assessment Type of Contact [] Declined paid internship visit [] Patient/Family/Request visit [] Outpatient visit [] Follow-up visit [] Physician referral [] Code/Alert [] Routine visit [] Staff referral [] Actively dying [] Patient sleeping [] Family support [] [] Out of room [] Palliative care [] [] Receiving care in room [] Pre-surgical visit [] Trauma [] Long length of stay [] ICU visit [] Other: Relational/Emotional Strength [] Patient feels connected with others/family/visitors/staff [] Distress [] Loneliness/isolation [] Abandonment Spirituality of Patient [] Person of Sheela [] Attends Rastafari of their Sheela [] Believes in Prayer [] Reads Bible or Congregation materials [] There are Spiritual issues to be addressed Stock Or Delivery Clerk Interventions [] Prayer [] Active listening [] Non-anxious presence [] Spiritual/emotional support [] Crisis/trauma care [] Spiritual counseling [] Bereavement support [] Provided bereavement packet [] Provided Bible/devotional materials [] Provided toy/stuffed animal, coloring book to patient or family member [] Provided Communion [] Anointing/[place] [] Salvation [] Completed spiritual assessment [] Other: Impact on Illness or Injury [] Angry [] Fearful [] Anxious [] Often cries [] Exhaustion [] Unable to work [] Unable to attend sikhism [] Unable to walk/stand [] Unable to read [] Unable to drive [] Unable to eat/drink [] Unable to sleep [] Unable to be with family [] Patient intubated [] Other: Summary Time spent with patient
[2020-07-16 09:09] LABS: Coronavirus Lab Test PTC Negative
[2020-07-16] MEDS: hydroCHLOROthiazide 25 mg Tablet PO (09:11)
[2020-07-16] MEDS: ciprofloxacin-dexameth Otic Susp 7.5 mL Btl 4 DROP EAR-BOTH ×2 (09:11→18:43)
[2020-07-16] MEDS: atorvastatin 40 mg Tablet 20 MG PO (09:11)
[2020-07-16] MEDS: metoprolol tartrate 25 mg Tablet PO ×2 (09:12→21:07)
--- NOTE | 2020-07-16 09:17 | XR_ITS ---
WS: [id number] XR KUB [id number] REASON FOR EXAM: Bowel obstruction FINDINGS: There are multiple gas-filled dilated loops of small bowel in the central and lower abdomen and pelvi s. There is minimal gas within the colon. No free air or retroperitoneal air. XR/XR KUB 66615 IMPRESSION: Bowel gas pattern indicates distal small bowel obstruction.
--- NOTE | 2020-07-16 09:19 | PC.NURSE ---
rcvd verbal order from Dr Birmingham to discontinue isolation precautions.
--- NOTE | 2020-07-16 18:30 | PM.PN ---
Subjective Subjective: Interval history: Late note entry for 07/16/2020 noted multiple bowel movement NG was removed. Vitals/I&O/Wt Last Vital Signs Temp 97.7 F 07/17/20 13:25 Pulse 94 07/17/20 13:25 Resp 18 07/17/20 13:25 BP 146/79 07/17/20 13:25 Pulse Ox 92 07/17/20 13:25 07/17/20 07/17/20 07/17/20 06:59 14:59 22:59 Intake Total 480 / 480 Balance 480 / 480 Physical Exam Narrative: EXAM NARRATIVE: General : alert, awake and oriented x 3, no distress HEENT: Grossly unremarkable. Chest : non-labored respiration CVS : NSR ABD : Non-distended no tenderness Ext : No edema Data : 07/17/20 04:37 07/15/20 05:42 A&P Assessment and plan (1) Small bowel obstruction: CT abdomen pelvis w con: Multiple dilated small bowel loops with air-fluid levels. The distal small bowel demonstrates mural thickening and mucosal enhancement, as it tapers to a smaller caliber. This suggests nonspecific inflammation of the distal small bowel, resulting small bowel obstruction. No small bowel perforation demonstrated. No abscess. Patient complaining of generalized abdominal pain, nausea and vomiting/Has hypoactive B/S likely ileus no clear definitive sign of obstruction on C.T abdomen Plan: NG removed CLD Repeat KUB Pain conrol Surgery on board Zofran I.V Hydration Repeat CBC, CMP in am Status: Acute (2) UTI (urinary tract infection): Will not continue at discharge. 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 Status: Acute (4) Hypertension: Stable On HCTZ/Metoprolol at home Will use prn meds while NPO Status: Acute (5) Hypothyroidism: Continue levothyroxine Status: Acute Additional A&P Information DVT prophylaxis: Lovenox 40 SQ daily CODE STATUS: Full code Attestations Medical Necessity Statement*: Will require further hospitalization for management of SBO Time Spent in Patient Care: Greater than 35 minutes (>than 50% of time spent in counselling and/or direct pt care on unit). 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
[2020-07-17] MEDS: enoxaparin 40 mg/0.4 mL Syringe SUBCUT (02:59)
[2020-07-17 03:40] VITALS: BP 160/98; PULSE 109; RESP 18; TEMP 36.7; O2SAT 96
[2020-07-17] MEDS: levothyroxine 50 mcg Tablet PO (05:07)
[2020-07-17 05:19] LABS: Basophils % 0.4 %; Eosinophils # 0.2 10^3/uL (0.0-0.8); Eosinophils % 4.3 %; Hematocrit 41.5 % (37.0-47.0); Hemoglobin 12.6 g/dL (11.5-15.3); Lymphocytes # 0.6 10^3/uL (0.8-4.8); Lymphocytes % 10.6 %; Mean Corpuscular HGB Conc 30.4 g/dL (30.0-36.0); Mean Corpuscular Hemoglobin 27.2 pg (28.0-34.0); Mean Corpuscular Volume 89.6 fL (81-99); Mean Platelet Volume 10.4 fL (7.4-10.4); Monocytes # 0.4 10^3/uL (0.2-0.9); Monocytes % 7.8 %; Neutrophils # 4.33 10^3/uL (1.8-7.7); Neutrophils % 76.7 %; Nucleated Red Blood Cells % 0 %; Platelet Count 159 10^3/cmm (130-400); Red Blood Count 4.63 10^6/uL (4.1-5.3); Red Cell Distribution Width 15.1 % (12.1-15.1); White Blood Count 5.6 10^3/uL (4.0-10.0)
--- NOTE | 2020-07-17 07:16 | PM.PN ---
Subjective Subjective: Interval history: I am ready to go home. I had nursing clamp the patient's nasogastric tube yesterday but while we were waiting to see how she did, the tube inadvertently got pulled out. It was left out and she started having large, loose bowel movements. She says she probably had 7 bowel movements yesterday. She tolerated a clear liquid diet and says that she would not mind trying something more solid. She denies abdominal pain. Vitals/I&O/Wt Last Vital Signs Temp 98.0 F 07/17/20 03:40 Pulse 109 H 07/17/20 03:40 Resp 18 07/17/20 03:40 BP 160/98 07/17/20 03:40 Pulse Ox 96 07/17/20 03:40 Physical Exam Narrative: EXAM NARRATIVE: Bowel sounds remain what I would consider to be hypoactive. She has no tenderness on exam and the abdomen is soft. Data : 07/17/20 04:37 07/15/20 05:42 A&P Assessment and plan (1) Ileus: The patient had a plain film of the abdomen yesterday which showed continued dilation of small bowel loops consistent with a distal small bowel obstruction. The patient is clearly not obstructed. The changes that have been present could certainly be consistent with a possible ileus as opposed to a true mechanical obstruction. She may be dealing with a viral syndrome of sorts. Covid testing has been negative. I am going to allow the patient a soft diet for breakfast. If she tolerates that and I think there is an option to discharge her with primary care follow-up. Status: Acute Attestations Medical Necessity Statement*: See admitting service's notation. Coding Level of Care Code Acute Cost Estimating Engineer for Nataliia Alcala Diagnoses Ileus K56.7
[2020-07-17 07:42] VITALS: PULSE 110; O2SAT 90
[2020-07-17 07:52] VITALS: BP 160/83; PULSE 107; RESP 18; TEMP 36.8; O2SAT 92
[2020-07-17] MEDS: hydroCHLOROthiazide 25 mg Tablet PO (09:14)
[2020-07-17] MEDS: metoprolol tartrate 25 mg Tablet PO (09:15)
[2020-07-17] MEDS: ciprofloxacin-dexameth Otic Susp 7.5 mL Btl 4 DROP EAR-BOTH (09:15)
[2020-07-17] MEDS: atorvastatin 40 mg Tablet 20 MG PO (09:15)
[2020-07-17 11:39] VITALS: BP 146/79; PULSE 94; RESP 18; TEMP 36.5; O2SAT 92
--- NOTE | 2020-07-17 13:06 | PC.NURSE ---
Discharge instructions given to patient. Went over instructions. All questions answered. No IV present, was removed yesterday. Patient in stable condition.
[2020-07-17 13:25] VITALS: BP 146/79; PULSE 94; RESP 18; TEMP 36.5; O2SAT 92
--- NOTE | 2020-07-17 18:34 | PM.DCS ---
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 This was associated with nausea and vomiting. upon arrival a CT abdomen pelvis with contrast was performed which showed multiple dilated small bowel loops with air-fluid levels. The distal small bowel demonstrates mural thickening and mucosal enhancement, as it tapers to a smaller caliber. This suggests nonspecific inflammation of the distal small bowel, resulting small bowel obstruction. No small bowel perforation demonstrated. No abscess. general surgery was consulted. Patient had a nasogastric tube placed in the emergency room which was continued to low intermittent suction. This was eventually clamped discontinued and patient was advanced on diet which she tolerated. General surgery cleared patient for discharge. Also to note patient was continued on IV antibiotics for suspected urinary tract infection. She completed course prior to discharge. Did not have any urinary symptoms. Remained afebrile. She was discharged in stable condition. Physical Exam Narrative: EXAM NARRATIVE: General : alert, awake and oriented x 3, no distress HEENT: Grossly unremarkable. Chest : non-labored respiration CVS : NSR ABD : Non-distended no tenderness Ext : No edema Discharge Data Data Completed and Pending: Completed Studies During Hospitalization Category Date Time Status CT abdomen pelvis w con* [id number] Urge nt Cat Scan 07/14/20 17:17 Completed XR KUB [id number] Rout ine Exams 07/16/20 09:17 Completed XR chest 1V ross ble [id number] Stat Exams 07/14/20 23:22 Completed Labs from last 24 hours 07/17/20 07/17/20 04:37 04:37 WBC 5.6 RBC 4.63 Hgb 12.6 Hct 41.5 MCV 89.6 MCH 27.2 L MCHC 30.4 RDW 15.1 Plt Count 159 MPV 10.4 Neut % (Auto) 76.7 Lymph % (Auto) 10.6 [place] % (Auto) 7.8 Eos % (Auto) 4.3 Baso % (Auto) 0.4 Neut # (Auto) 4.33 Lymph # (Auto) 0.6 L [place] # (Auto) 0.4 Eos # (Auto) 0.2 Baso # (Auto) 0.0 Nucleated RBC % (a uto) 0 Nucleated RBCs # 0.0 Magnesium 2.0 Vitals: Last Vital Signs Temp 97.7 F 07/17/20 13:25 Pulse 94 07/17/20 13:25 Resp 18 07/17/20 13:25 BP 146/79 07/17/20 13:25 Pulse Ox 92 07/17/20 13:25 Discharge Plan Discharge Patient Disposition: Home Condition: Stable Prescriptions: Continued rosuvastatin [Crestor] 5 mg tablet 5 mg PO DAILY@0900 RF: 0 levothyroxine 50 mcg capsule 50 mcg PO DAILY@0500 RF: 0 Ciprodex 0.3-0.1 % drops,suspension 4 drop EAR-BOTH BID@0800,1800 RF: 0 hydrochlorothiazide 25 mg tablet 25 mg PO DAILY@0900 RF: 0 metoprolol tartrate 25 mg tablet 25 mg PO BID@0900,2100 RF: 0 No Action Voltaren 1 % gel 4 g topical QID Qty: 100 RF: 0 Discharge Orders: Discharge Order (Routine); Ordered 07/17/20 Ordered By: Albertina Birmingham Referrals: Manoj Carmona NP [Referring] - 07/24/20 10:30 am Discharge Diet: Advance as tolerated Discharge Activity: Resume usual activity Patient Instructions: Urinary Tract Infection in Women (DC), Low Fiber Diet (GEN), Ileus (GEN) Discharge Attestations Time Spent in Discharge Care*: greater than 30 min Specific Discharge Activities: educating patient, discussing with case maker/social workers/dc planners, documenting/other paperwork and evaluating patient/reviewing data Status at Discharge: Cognitive status at discharge: cognitively intact, Behavioral status at discharge: cooperative, Functional status at discharge: independent ambulation Overall status at discharge: patient is back to baseline Quality Metrics Clinical Quality Measures During this hospital stay, did patient experience: None Coding Level of Care Code Acute Property Condition Assessor for g Fwd Diagnoses Small bowel obstruction K56.609 UTI (urinary tract infection) 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
== END 2020-07-17 13:25 | disposition home or self-care (01) | DRG 389 ==
LOC: ER 07-15 00:44 → MEDSURG 07-15 01:40
PROVIDERS: Surgery; Admitting Provider Internal Medicine; Emergency Provider Emergency Medicine; PCP Internal Medicine; Visit Provider Hospitalist
DX: K56.609 Unspecified intestinal obstruction, unspecified as to partial versus complete obstruction (principal); N39.0 Urinary tract infection, site not specified; C49.4 Malignant neoplasm of connective and soft tissue of abdomen; K56.7 Ileus, unspecified; I10 Essential (primary) hypertension; E03.9 Hypothyroidism, unspecified
CPT/HCPCS: 12345; 36415; 71045; 74018; 74177; 80053; 81001; 83605; 83690; 83735; 84145; 85025; 85610; 85730; 86140; 87635; 96372; 96375; 97161; 99283; J0360; J0696; J1650; J2405; J2543; J2550; J3010; J3490; J7030; Q9967

== ENCOUNTER 2020-07-18 09:18 | Emergency (ER) | payer MEDICARE, SELFPAY ==
[2020-07-18 09:25] VITALS: BP 162/105; PULSE 108; RESP 16; TEMP 36.8; O2SAT 93; BMI 35.6
--- NOTE | 2020-07-18 09:35 | XR_ITS ---
WS: [id number] XR foot LT min 3V* [id number] REASON FOR EXAM: pain FINDINGS: Overall moderate decrease in bony density. Mild hammertoe deformity third through the fifth left toes. Moderate joint space narrowing and subcho ndral sclerosis involving the DIP and MIP joints of the toes. Similar findings in the metatarsal phal angeal joint of the great toe with mild valgus deformity. No fracture or focal bone lesion. Mild narrowing of the joint spaces in the mid foot with mild subchondral sclerosis. There is some julien yohana spurring in the mid foot. No fracture or focal bony lesion. The joint spaces of the hindfoot are intact. No fracture or focal bone lesion. XR/XR foot LT min 3V* [id number] IMPRESSION: Findings of osteoarthropathy as above.
--- NOTE | 2020-07-18 09:36 | W.ED.EXTPRO ---
HPI - Extremity Problem General: Chief complaint: Extremity Problem,Nontraumatic Stated complaint: left foot pain Time Seen by Provider: 07/18/20 09:26 History of Present Illness: HPI Narrative: Patient complains about left foot pain that started yesterday. Said it hurt for her to put weight on her foot to move her foot around. Denies any swelling redness fever got the hospital yesterday morning to had a history of small bowel obstruction. MD Complaint: extremity pain Onset (ago): hour(s) Pain Consistency: constant Location: left and other (Foot) Severity scale (1-10): 4 Quality: stabbing and aching Radiation: none Relieving factors: immobilization Exacerbating factors: range of motion and weight bearing Associated symptoms: Reports no associated symptoms; Deny chest pain, fever(s) or rash Context: other (Recently in the hospital with small bowel obstruction) Review of Systems Const: Denies: fever(s), chills or body aches Eyes: Denies: change in vision or blurry vision ENMT: Denies: throat pain or nasal congestion Card: Denies: chest pain or dyspnea on exertion Resp: Denies: dyspnea, productive cough or non-productive cough GI: Denies: abdominal pain, nausea or vomiting Musc: Reports: extremity pain (Left foot) Skin/Breast: Denies: rash Neuro: Denies: headache(s) Psych: Denies: anxiety or depression Carlos/Lymph: Denies: easy bruising PFS ED PFSH: Medical History (Updated 07/18/20 @ 09:57 by MATT Newton) Diabetes Diet controlled Hypertension Hypothyroidism Vertigo Surgical History (Updated 07/15/20 @ 07:12 by Eyal Merchant MD) Abdominal tumor Operated on by gynecologic surgeon in [place] 2016 History of bladder suspension procedure History of hysterectomy / BSO Normal colonoscopy 2016 ([place]) Family History Mother , AT AGE 73-DIABETES,THYROID DISEASE Diabetes Father , FATHER AT AGE 85-DIABETES Diabetes Social History Smoking and tobacco status: never smoked Alcohol intake: never Physical Exam Const: COMMON NORMALS: no acute distress, average body habitus and patient oriented x3 HENMT: COMMON NORMALS: normocephalic HEAD & SCALP: normal to inspection and normocephalic FACE & SINUS: normal facial exam Eye: COMMON NORMALS: conjunctivae normal GENERAL EYE: appearance normal, both eyes and all related structures CONJUNCTIVA: Yes conjunctivae normal Neck/C-Spine: COMMON NORMALS: no JVD Chest: COMMONS NORMALS: normal inspection of the chest Resp: COMMON NORMALS: normal respiratory effort and clear to auscultation bilaterally AUSCULTATION: clear to auscultation bilaterally Cardio: COMMON NORMALS: no JVD, regular rate and regular rhythm RATE: regular rate RHYTHM: regular rhythm GI: COMMON NORMALS: Normal to inspection, nondistended, normoactive bowel sounds present Extremity: COMMON NORMALS: normal to inspection and full ROM LEFT LOWER EXTREMITY: Yes foot & digits (Tenderness throughout the foot mainly in the forefoot and the plantar surfa) Left foot and digits: Yes other (Hurts with range of motion no swelling redness positive neurovascular statu) Neuro: COMMON NORMALS: patient oriented x3 Course Vital Signs: Vital signs: Vital Signs Temperature 98.3 F 07/18/20 09:25 Pulse Rate 111 H 07/18/20 09:37 Respiratory Rate 16 07/18/20 09:25 Blood Pressure 162/105 07/18/20 09:25 Pulse Oximetry 93 07/18/20 09:37 MDM - Extremity (Nontraumatic) MDM Narrative: Medical decision making narrative: Pain most likely from plantar fasciitis from laying in bed for 3 days while in the hospital. And not having proper footwear. Does not have any signs and symptoms of clot no redness no swelling pain more with range of motion. Discharge Plan Discharge Patient Disposition: Home Clinical Impression: Plantar fasciitis of left foot Condition: Stable Prescriptions: New Voltaren 1 % gel 4 g topical QID Qty: 100 RF: 0 No Action rosuvastatin [Crestor] 5 mg tablet 5 mg PO DAILY@0900 RF: 0 levothyroxine 50 mcg capsule 50 mcg PO DAILY@0500 RF: 0 Ciprodex 0.3-0.1 % drops,suspension 4 drop EAR-BOTH BID@0800,1800 RF: 0 hydrochlorothiazide 25 mg tablet 25 mg PO DAILY@0900 RF: 0 metoprolol tartrate 25 mg tablet 25 mg PO BID@0900,2100 RF: 0 Discharge Orders: Discharge ED (Routine); Ordered 07/18/20 Ordered By: Luan Terrazas Referrals: Genoveva Larsen MD [Primary Care Provider] - Discharge Diet: Usual diet Discharge Activity: Increase activity as tolerated Patient Instructions: Plantar Fasciitis (ED) Activity Restrictions/Additional Instructions: Follow-up with medical provider as directed. Take medications as prescribed. Return to the ER or your medical provider if condition worsens. Please read and understand discharge instructions. If any questions ask please. Wear proper footwear Coding Level of Care Code ED Chemical Etching Processor for Chg Fwd Exam Comprehensive
[2020-07-18 09:37] VITALS: PULSE 100; PULSE 111; O2SAT 93
[2020-07-18] MEDS: ketorolac 60 mg/2 mL INJ IM (10:04)
[2020-07-18 10:07] VITALS: BP 167/105; PULSE 95; RESP 16; O2SAT 94
== END 2020-07-18 10:11 | disposition home or self-care (01) ==
PROVIDERS: Emergency Provider Nurse Practitioner Family; PCP Internal Medicine
DX: M72.2 Plantar fascial fibromatosis (principal); E11.9 Type 2 diabetes mellitus without complications; I10 Essential (primary) hypertension
CPT/HCPCS: 12345; 73630; 96372; 99281; 99283; J1885

== ENCOUNTER 2021-01-22 13:32 | Outpatient (CLI) | payer MEDICARE, SELFPAY ==
--- NOTE | 2021-01-22 13:39 | MM_ITS ---
WS: [id number] BILATERAL DIGITAL SCREENING MAMMOGRAPHY WITH CAD CLINICAL INFORMATION: SCREENING HISTORY: Screening mammogram. No current complaints. COMPARISON: March 13, 2020 TECHNIQUE: Bilateral CC and MLO views. FINDINGS: The breasts are composed of heterogeneous fibroglandular density tissue, which can limit the detectio n of small underlying mass lesions. A few punctate calcifications. No suspicious mass, asymmetry, jeanine cifications, or architectural distortion. No evidence of malignancy. MM/[place] [id number] IMPRESSION: BI-RADS: 2-Benign FOLLOW UP: 1 Year Follow-up Recommend return to annual screening mammography.
== END 2021-01-22 13:33 | disposition home or self-care (01) ==
LOC: RADSHAW 13:36
PROVIDERS: PCP Internal Medicine; Visit Provider Internal Medicine
DX: Z12.31 Encounter for screening mammogram for malignant neoplasm of breast (principal)
CPT/HCPCS: 77067

== ENCOUNTER 2021-02-14 08:40 | Outpatient (CLI) | payer MEDICARE, SELFPAY ==
--- NOTE | 2021-02-14 | CT_ITS ---
WS: [id number] CT CHEST, ABDOMEN, AND PELVIS TECHNIQUE: Contrast-enhanced CT of the chest, abdomen, and pelvis with coronal and sagittal reformatt ed images. CLINICAL INFORMATION: MALIGNANT NEOPLASM OF CONNECTIVE AND SOFT TISSUE UNSPECIFIED COMPARISON: CT abdomen pelvis July 14, 2020, . CT chest abdomen pelvis and DLP: 2227.[address] scans at [facility] use at least one of these dose optimization techniques: automat ed exposure control; mA and/or kV adjustment per patient size (includes targeted exams where dose is matched to clinical indication); or iterative reconstruction. CT CHEST: Moderate chronic emphysematous changes. No acute pulmonary infiltrates. Calcified granuloma right low er lobe measuring 6 mm is stable. Calcification better seen on the prior examination. Additional tiny calcified granuloma right lower lobe laterally. No other suspicious parenchymal abnormalities. No ev idence of metastatic disease in the chest. No mediastinal or hilar lymphadenopathy. Right thyroid nodule measuring 7 mm is stable. No axillary l ymphadenopathy. Aortic calcification. Coronary calcification. Hypertrophic changes thoracic spine. Moderate thoracic kyphosis. CT ABDOMEN AND PELVIS: Diffuse fatty infiltration of the liver. Normal portal vein and splenic vein. Normal spleen. Splenic granulomas. Normal GE junction. Normal gallbladder. Fatty atrophy of the pancreas. Adrenal glands are normal. Normal renal parenchymal enhancement. No hydronephrosis. Right upper pole renal cyst measuring 4.1 cm. Normal caliber abdominal aorta. Mild aortic calcificati on. Sigmoid diverticulosis. No evidence of acute diverticulitis. Scattered stool in the colon. Prior hysterectomy. No abdominal or pelvic lymphadenopathy. No inguinal lymphadenopathy. CT/CT chest abd pel w con* IMPRESSION: 1. No evidence of metastatic disease in the chest abdomen or pelvis. 2. No mediastinal or hilar lymphadenopathy. No adenopathy in the abdomen or pe lvis. 3. Diffuse fatty infiltration of the liver. 4. Prior hysterectomy. 5. Sigmoid diverticulosis. No evidence of acute diverticulitis. 6. Right renal cyst measuring 4.1 CM. No hydronephrosis in either kidney. 7. No other significant changes from the prior examinations.
[2021-02-14] MEDS: iohexol 300 mg/mL 50 mL Btl IV (09:29)
[2021-02-14 10:20] LABS: Blood Urea Nitrogen 17 mg/dL (8-23)
[2021-02-14] MEDS: iohexol 300 mg/mL 100 mL Btl IV (10:46)
== END 2021-02-14 08:41 | disposition home or self-care (01) ==
LOC: RADWPI 08:42
PROVIDERS: PCP Internal Medicine; Visit Provider Nurse Practitioner Family
DX: C49.9 Malignant neoplasm of connective and soft tissue, unspecified (principal); N28.1 Cyst of kidney, acquired; K57.30 Diverticulosis of large intestine without perforation or abscess without bleeding; Z90.710 Acquired absence of both cervix and uterus; K76.0 Fatty (change of) liver, not elsewhere classified
CPT/HCPCS: 71260; 74177; 82565; 84520; Q9967

== ENCOUNTER 2021-02-26 17:31 | Observation (INO) | payer MEDICARE, SELFPAY ==
[2021-02-26 17:52] VITALS: BP 197/101; PULSE 78; RESP 19; TEMP 37; O2SAT 99; BMI 35.6
--- NOTE | 2021-02-26 18:42 | CTR_ITS ---
PROCEDURE INFORMATION: Exam: CT Angiography Head With Contrast, Arteriography Exam date and time: 02/26/2021 6:42 PM Age: 70 years old Clinical indication: Other: Left side facial droop; Patient HX: Best images possible. 22g in hand. PT stuck multiple times. PT would not stop moving head and moaning. ; Additional info: CVA TECHNIQUE: Imaging protocol: Computed tomography angiography of the head with contrast. Exam focused on the arteries. 3D rendering (Not supervised by radiologist): MIP and/or 3D reconstructed images were created by the technologist. Total images: 800 Radiation optimization: All CT scans at this facility use at least one of these dose optimization techniques: automated exposure control; mA and/or kV adjustment per patient size (includes targeted exams where dose is matched to clinical indication); or iterative reconstruction. Contrast material: OMNI 350; Contrast volume: 95 ml; Contrast route: INTRAVENOUS (IV); COMPARISON: CT head wo con* [id number] 02/26/2021 6:59 PM RADIATION DOSE METRICS: Total DLP (mGy-cm): 2224.32 FINDINGS: ANTERIOR CIRCULATION: Right internal carotid artery: Minimal cerebral arteriosclerosis of the internal carotid artery terminus. Intracranial segment is patent with no significant stenosis. No aneurysm. Right middle cerebral artery: Unremarkable. No occlusion or significant stenosis. No aneurysm. Right anterior cerebral artery: Mildly hypoplastic right A1 segment. No occlusion or significant stenosis. No aneurysm. Left internal carotid artery: Minimal cerebral arteriosclerosis of the internal carotid artery terminus. Intracranial segment is patent with no significant stenosis. No aneurysm. Left middle cerebral artery: Unremarkable. No occlusion or significant stenosis. No aneurysm. Left anterior cerebral artery: Unremarkable. No occlusion or significant stenosis. No aneurysm. POSTERIOR CIRCULATION: Right vertebral artery: Unremarkable. No occlusion or significant stenosis. No aneurysm. Left vertebral artery: Mildly hypoplastic. No occlusion or significant stenosis. No aneurysm. Basilar artery: Unremarkable. No occlusion or significant stenosis. No aneurysm. Right posterior cerebral artery: Unremarkable. No occlusion or significant stenosis. No aneurysm. Left posterior cerebral artery: Unremarkable. No occlusion or significant stenosis. No aneurysm. IMPRESSION: 1. No large vessel stenosis or occlusion. 2. Minimal cerebral arteriosclerosis of the internal carotid artery terminus bilaterally. 3. Mildly hypoplastic right A1 segment. 4. Mildly hypoplastic distal left vertebral artery. PROCEDURE INFORMATION: Exam: CT Angiography Neck With Contrast Exam date and time: 02/26/2021 6:42 PM Age: 70 years old Clinical indication: Other: Left side facial droop; Patient HX: Best images possible. 22g in hand. PT stuck multiple times. PT would not stop moving head and moaning. ; Additional info: CVA TECHNIQUE: Imaging protocol: Computed tomography angiography of the neck with contrast. 3D rendering (Not supervised by radiologist): MIP and/or 3D reconstructed images were created by the technologist. Radiation optimization: All CT scans at this facility use at least one of these dose optimization techniques: automated exposure control; mA and/or kV adjustment per patient size (includes targeted exams where dose is matched to clinical indication); or iterative reconstruction. Contrast material: OMNI 350; Contrast volume: 95 ml; Contrast route: INTRAVENOUS (IV); COMPARISON: CT head wo con* [id number] 02/26/2021 6:59 PM RADIATION DOSE METRICS: Total DLP (mGy-cm): 2224.32 FINDINGS: Right common carotid artery: No stenosis. No dissection or occlusion. Right internal carotid artery: No stenosis of the extracranial segment. No dissection or occlusion. Right external carotid artery: No occlusion or stenosis of the origin. Left common carotid artery: No stenosis. No dissection or occlusion. Left internal carotid artery: No stenosis of the extracranial segment. No dissection or occlusion. Left external carotid artery: No occlusion or stenosis of the origin. Right vertebral artery: No stenosis. No dissection or occlusion. Left vertebral artery: No stenosis. No dissection or occlusion. Aorta: Bovine aortic arch which is a normal anatomical variant. Arteriosclerosis. Thyroid: Right thyroid nodule measuring approximately 16 mm x 9 mm x 12 mm. Further evaluation with non-emergent thyroid ultrasound is recommended. Soft tissues: Normal. No significant soft tissue swelling. Bones/joints: No visible acute osseous abnormality. 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 Spondylosis deformans upper thoracic spine within the field of view. CT/CT angio headneck* [id number] IMPRESSION: 1. No visible evidence of stenosis, occlusion, or dissection. 2. Right thyroid nodule measuring approximately 16 mm x 9 mm x 12 mm. Further evaluation with non-emergent thyroid ultrasound is recommended. COMMENTS: Consistent with the [employer]'s Incidental Findings Committee white paper (J Am No Radiol 2015): In patients aged 35 years and older with an incidental thyroid nodule equal to or greater than 1.[address], MRI or extrathyroidal US, further evaluation with dedicated thyroid US is recommended for patients with normal life expectancy and without comorbidities. For smaller nodules without suspicious features, no further evaluation or follow up is recommended. REFERENCES: NASCET CRITERIA. The degree of internal carotid artery stenosis is based on NASCET criteria. Normal is no stenosis. Mild is less than 50% stenosis. Moderate is 50-69% stenosis. Severe is 70% to 99% stenosis. Total occlusion is no detectable patent lumen. Radiation Dose CTDIVOL = (mGy): DLP = 2224.32~2224.32 (mGy-cm)
--- NOTE | 2021-02-26 18:42 | CTR_ITS ---
PROCEDURE INFORMATION: Exam: CT Head Without Contrast Exam date and time: 02/26/2021 6:42 PM Age: 70 years old Clinical indication: Pain; Weakness, facial; Headache; Prior surgery; Surgery type: RT eye; Additional info: Headache/left facial droop TECHNIQUE: Imaging protocol: Computed tomography of the head without contrast. Total images: 208 Radiation optimization: All CT scans at this facility use at least one of these dose optimization techniques: automated exposure control; mA and/or kV adjustment per patient size (includes targeted exams where dose is matched to clinical indication); or iterative reconstruction. COMPARISON: CT head wo con* [id number] 05/05/2017 11:30 PM RADIATION DOSE METRICS: Total DLP (mGy-cm): 885.11 FINDINGS: Brain: No evidence of active or acute intracranial pathologic process, hemorrhage, or trauma. Moderate small vessel ischemic disease with senile periventricular leukomalacia. Old lacunar infarction anterior limb left internal capsule. No cerebral edema. No mass effect. No midline shift. No hyperdense MCA or insular ribbon sign. Cerebral arteriosclerosis. Cerebral ventricles: No ventriculomegaly. Paranasal sinuses: Visualized sinuses are unremarkable. No fluid levels. Mastoid air cells: Visualized mastoid air cells are well aerated. Bones/joints: Unremarkable. No acute fracture. Soft tissues: Unremarkable. CT/CT head wo con* [id number] IMPRESSION: No evidence of active or acute intracranial pathologic process, hemorrhage, or trauma. Radiation Dose CTDIVOL = (mGy): DLP = 885.11 (mGy-cm)
--- NOTE | 2021-02-26 18:43 | XRR_ITS ---
PROCEDURE INFORMATION: Exam: XR Chest Exam date and time: 02/26/2021 6:43 PM Age: 70 years old Clinical indication: Shortness of breath; Additional info: Cough TECHNIQUE: Imaging protocol: XR of the chest. Views: 1 view. Total images: 1 COMPARISON: CT chest abd pel w con* 02/14/2021 10:36 AM FINDINGS: Lungs: No visible active interstitial or alveolar airspace disease. Probable component of COPD/chronic bronchitis. Pleural spaces: Unremarkable. No pleural effusion. No pneumothorax. Heart/Mediastinum: Cardiac structures and configuration with mild arteriosclerosis. Coronary artery disease. Cardiac size upper limits of normal. Bones/joints: Unremarkable. XR/XR chest 1V portable [id number] IMPRESSION: Nonacute.
--- NOTE | 2021-02-26 18:43 | ECG_ITS ---
[facility] Test Date: 2021-02-26 Pat Name: Niru Bowser Department: Room: Gender: Female [employer] Management [employer]ologist: : 1950 Requested By: Chris Boswell Order Number: [id number] Issac MD: Sarah Hardy M.D. Measurements Intervals [place] Rate: 70 P: 57 OR: 234 QRS: 1 QRSD: 91 T: 44 QT: 390 QTc: 422 Interpretive Statements SINUS RHYTHM WITH FIRST DEGREE AV BLOCK LOW QRS VOLTAGE IN PRECORDIAL LEADS [QRS DEFLECTION < 1.0 mV IN CHEST LEADS] Compared to ECG 05/05/2017 13:55:31 First degree AV block now present Electronically Signed On 02-28-2021 14:45:40 CDT by Sarah Hardy M.D. [id number]
--- NOTE | 2021-02-26 19:35 | ED_ITS ---
HPI - General Adult General: Chief complaint: General Medical Stated complaint: Stroke like Symptoms/Sent from [facility] Time Seen by Provider: 02/26/21 19:30 History of Present Illness: HPI narrative: This patient is a 70-year-old female who presents to the emergency department with complaint of strokelike symptoms. Patient states at 530 this morning which was approximately 16 hours ago awakened from sleep and felt like that her side of her face was not working right. Patient states she has a long history of hypertension and takes 3 medications for the same is difficult though difficult to control blood pressures. Upon arrival blood pressure was 209 systolic. Patient has profound left-sided facial asymmetry. Patient sensation is numb to the face on the left. There is a lack of frontal forehead folding or wrinkling. Left eyelid does not close. And has left-sided facial droop. Consistent with a Lindsay's palsy presentation but concerning for underlying strokelike symptoms. Patient has no deficits on extremities bilaterally. Nursing staff will do a NIH evaluation. We will do medical evaluation treat as needed. Onset (ago): hour(s) Location: head and face Severity: moderate Pain Consistency: constant Relieving factors: none Exacerbating factors: none Associated symptoms: Deny chest pain, dyspnea, headache(s), nausea, rash, palpitations or vomiting Review of Systems General: Reports: 10 or more systems reviewed and unremarkable except in HPI and below Const: Denies: fever(s), chills, body aches or fatigue Eyes: Denies: change in vision or blurry vision ENMT: Denies: throat pain, hoarseness or mouth pain Card: Denies: chest pain, palpitations, irregular heart rhythm, edema, swelling of feet/ankles or lightheadedness Resp: Denies: dyspnea, productive cough, non-productive cough, wheezing or pain on inspiration GI: Denies: abdominal pain, nausea or vomiting : Denies: flank pain, difficulty voiding, dysuria, urinary frequency, urinary urgency or urinary hesitancy Musc: Denies: neck pain, back pain, extremity pain, extremity swelling, joint pain, joint swelling, joint redness, joint warmth or limited range of motion Skin/Breast: Denies: rash, pruritus, erythema or skin tenderness Neuro: Reports: sensory changes; Denies: headache(s), numbness in extremities or weakness in extremities Psych: Denies: anxiety or depression PFSH ED PFSH: Medical History Diabetes Diet controlled Hypertension Hypothyroidism Vertigo Surgical History Abdominal tumor Operated on by gynecologic surgeon in [place] 2016 History of bladder suspension procedure History of hysterectomy / BSO Normal colonoscopy 2016 ([place]) Family History Mother , AT AGE 73-DIABETES,THYROID DISEASE Diabetes Father , FATHER AT AGE 85-DIABETES Diabetes Social History Smoking and tobacco status: never smoked Alcohol intake: never Physical Exam Const: COMMON NORMALS: no acute distress, average body habitus, patient oriented x3, no limitations, healthy appearing, alert and well nourished OR IENTATION/CONSCIOUSNESS: Yes oriented to person, Yes oriented to place and Yes oriented to time HENMT: COMMON NORMALS: normocephalic, atraumatic, hearing grossly normal bilaterally, external ears normal, EAC's normal, TM's normal bilaterally, Normal external nose present, Normal nasal mucous membranes and turbinates present, moist oral mucous membranes, oropharynx normal, dentition normal and gingiva normal HEAD & SCALP: normocephalic and atraumatic NOSE: Normal external nose present and Normal nasal mucous membranes and turbinates present EXTERNAL EAR: Yes external ears normal EXTERNAL AUDITORY CANAL: EAC's normal TYMPANIC MEMBRANE: TM's normal bilaterally Neck/C-Spine: COMMON NORMALS: full ROM, no lymphadenopathy, supple, no meningeal signs, no JVD, Thyroid normal and No carotid bruits THYROID: Thyroid normal Chest: COMMONS NORMALS: normal inspection of the chest, normal palpation of entire chest wall, normal inspection of the breasts and normal palpation of the breasts Breast/axilla inspection: Yes normal inspection of the breasts BREAST/AXILLA PALPATION: Yes normal palpation of the breasts Resp: COMMON NORMALS: normal respiratory effort, No retractions, No use of accessory muscles, clear to auscultation bilaterally and percussion normal AUSCULTATION: clear to auscultation bilaterally PERCUSSION: percussion normal Cardio: COMMON NORMALS: no JVD, regular rate, regular rhythm, S1 normal heart sound present, S2 normal heart sound present, No gallops present (Cardio), No clicks present (Cardio), No murmurs present (Cardio), No rub (Cardio) and Peripheral pulses 2+ throughout RATE: regular rate RHYTHM: regular rhythm HEART SOUNDS: S1 normal heart sound present and S2 normal heart sound present PERIPHERAL PULSES: Peripheral pulses 2+ throughout GI: COMMON NORMALS: Normal to inspection, nondistended, normoactive bowel sounds present, Soft to palpation, non-tender, No hepatosplenomegaly present, no masses and no bruits PALPATION: Yes Soft to palpation and Yes No hepatosplenomegaly present Back/Pelvis: COMMON NORMALS: thoracic and lumbar spine normal to inspection, no thoracic nor lumbar tenderness, thoraco-lumbar ROM normal and straight leg raise negative bilaterally Extremity: COMMON NORMALS: normal to inspection, full ROM, capillary refill normal, no joint enlargement, no clubbing, cyanosis or edema, no calf tenderness and no pedal edema Neuro: COMMON NORMALS: patient oriented x3 SENSORIUM/ORIENTATION: Yes alert, Yes oriented to person, Yes oriented to place and Yes oriented to time MENINGEAL SIGNS: Yes no meningeal signs CRANIAL NERVES: Yes CN III (oculomotor) CN III laterality: left and Yes CN VII (facial) Laterality: left Course Reevaluation(s): Reevaluation #1: Patient's blood pressure is not much improved after hydralazine. Patient states that long Street of difficult to control blood pressures. Patient be started on a Cardene drip. CTA of the head and neck and CT scan all negative for any acute findings concerning for stroke. Patient's facial asymmetry is consistent with Lindsay's palsy. However while patient is related to blood pressure issues still have a concern of strokelike symptoms. Patient symptom onset was at 5:30 AM almost 20 hours ago. Patient is agreeable to be admitted for the hospital for additional treatments for elevated blood pressures. Time: 22:20 Consultations: Consultation #1: I did discuss at length with hospitalist . He is accepted the patient to the hospital admission for further evaluation of facial asymmetry and hypertension. He will see patient write additional Time: 22:31 Vital Signs: Vital signs: Vital Signs Temperature 98.6 F 02/26/21 17:52 Pulse Rate 75 02/26/21 21:05 Respiratory Rate 19 H 02/26/21 21:05 Blood Pressure 199/100 02/26/21 21:55 Pulse Oximetry 99 02/26/21 21:05 MDM - General Adult MDM Narrative: Medical decision making narrative: This patient is a 70-year-old female who presents to the emergency department with complaint of strokelike symptoms. Patient states at 530 this morning which was approximately 16 hours ago awakened from sleep and felt like that her side of her face was not working right. Patient states she has a long history of hypertension and takes 3 medications for the same is difficult though difficult to control blood pressures. Upon arrival blood pressure was 209 systolic. Patient has profound left-sided facial asymmetry. Patient sensation is numb to the face on the left. There is a lack of frontal forehead folding or wrinkling. Left eyelid does not close. And has left-sided facial droop. Consistent with a Lindsay's palsy presentation but concerning for underlying strokelike symptoms. Patient has no deficits on extremities bilaterally. Nursing staff will do a NIH evaluation. Patient's blood pressure is not much improved after hydralazine. Patient states that long Street of difficult to control blood pressures. Patient be started on a Cardene drip. CTA of the head and neck and CT scan all negative for any acute findings concerning for stroke. Patient's facial asymmetry is consistent with Lindsay's palsy. However while patient is related to blood pressure issues still have a concern of strokelike symptoms. Patient symptom onset was at 5:30 AM almost 20 hours ago. Patient is agreeable to be admitted for the hospital for additional treatments for elevated blood pressures. I did discuss at length with hospitalist . He is accepted the patient to the hospital admission for further evaluation of facial asymmetry and hypertension. He will see patient write additional Lab Data: Labs: Lab Results 02/26/21 02/26/21 02/26/21 Range/Units 20:33 20:33 20:33 WBC 5.5 (4.0-10.0) 10^3/ uL RBC 5.00 (4.1-5.3) 10^6/u L Hgb 13.6 (11.5-15.3) g/dL Hct 45.4 (37.0-47.0) % MCV 90.8 (81-99) fL MCH 27.2 L (28.0-34.0) pg MCHC 30.0 (30.0-36.0) g/dL RDW 14.5 (12.1-15.1) % Plt Count 189 (130-400) 10^3/c mm MPV 11.8 H (7.4-10.4) fL Neut % (Auto) 70.8 % Lymph % (Auto) 18.8 % Frontier % (Auto) 7.5 % Eos % (Auto) 2.2 % Baso % (Auto) 0.5 % Neut # (Auto) 3.89 (1.8-7.7) 10^3/u L Lymph # (Auto) 1.0 (0.8-4.8) 10^3/u L Frontier # (Auto) 0.4 (0.2-0.9) 10^3/u L Eos # (Auto) 0.1 (0.0-0.8) 10^3/u L Baso # (Auto) 0.0 (0.0-0.1) 10^3/u L Nucleated RBC % (a uto) 0 % Nucleated RBCs # 0.0 /100WBC PT 13.50 (12.1-14.9) SECO NDS INR 1.00 (0.8-1.2) APTT 28.8 (23.9-36.7) SECO NDS Sodium 140 (136-145) mmol/L Potassium 3.9 (3.5-5.1) mmol/L Chloride 102 (98-107) mmol/L Carbon Dioxide 26 (22-29) mmol/L Anion Gap 15.9 (5-19) BUN 16 (8-23) mg/dL Creatinine 0.7 (0.5-0.9) mg/dL GFR Calculation Not Reportable Glucose 98 (65-115) mg/dL Calculated Osmolal ity 291 (285-295) mOsm/k g Calcium 9.2 (8.5-10.5) mg/dL Total Bilirubin 0.2 (0.15-1.2) mg/dL AST 21 (0-32) U/L ALT 26 (0-33) U/L Alkaline Phosphata se 118 H (35-105) IU/L Troponin T Baselin e (0-10) ng/L NT-Pro-B Natriuret Pep 46 (0-125) pg/mL Total Protein 6.9 (6.6-8.7) g/dL Albumin 4.4 (3.5-5.2) g/dL Globulin 2.5 (1.3-4.6) g/dL Urine Color (Yellow) Urine Appearance (CLEAR) Urine pH (5-7) Ur Specific Gravit y (1.005-1.030) Urine Protein (Negative) Urine Glucose (UA) (Normal) Urine Ketones (Negative) Urine Blood (Negative) Urine Nitrate (Negative) Urine Bilirubin (Negative) Urine Urobilinogen (Negative) mg/dL Ur Leukocyte Keke ase (Negative) Urine RBC (0-2) /hpf Urine WBC (0-5) /hpf Ur Squamous Epith Cells (0-5) /hpf Amorphous Sediment Urine Bacteria (NONE) /hpf Acetaminophen < 5.0 L (10-30) ug/mL Ethyl Alcohol < 10 (0-10) mg/dL SARS-CoV-2 Ag (Rap id) (Negative) 02/26/21 02/26/21 02/26/21 Range/Units 20:33 20:33 21:02 WBC (4.0-10.0) 10^3/ uL RBC (4.1-5.3) 10^6/u L Hgb (11.5-15.3) g/dL Hct (37.0-47.0) % MCV (81-99) fL MCH (28.0-34.0) pg MCHC (30.0-36.0) g/dL RDW (12.1-15.1) % Plt Count (130-400) 10^3/c mm MPV (7.4-10.4) fL Neut % (Auto) % Lymph % (Auto) % Frontier % (Auto) % Eos % (Auto) % Baso % (Auto) % Neut # (Auto) (1.8-7.7) 10^3/u L Lymph # (Auto) (0.8-4.8) 10^3/u L Frontier # (Auto) (0.2-0.9) 10^3/u L Eos # (Auto) (0.0-0.8) 10^3/u L Baso # (Auto) (0.0-0.1) 10^3/u L Nucleated RBC % (a uto) % Nucleated RBCs # /100WBC PT (12.1-14.9) SECO NDS INR (0.8-1.2) APTT (23.9-36.7) SECO NDS Sodium (136-145) mmol/L Potassium (3.5-5.1) mmol/L Chloride (98-107) mmol/L Carbon Dioxide (22-29) mmol/L Anion Gap (5-19) BUN (8-23) mg/dL Creatinine (0.5-0.9) mg/dL GFR Calculation Glucose (65-115) mg/dL Calculated Osmolal ity (285-295) mOsm/k g Calcium (8.5-10.5) mg/dL Total Bilirubin (0.15-1.2) mg/dL AST (0-32) U/L ALT (0-33) U/L Alkaline Phosphata se (35-105) IU/L Troponin T Baselin e 6 (0-10) ng/L NT-Pro-B Natriuret Pep (0-125) pg/mL Total Protein (6.6-8.7) g/dL Albumin (3.5-5.2) g/dL Globulin (1.3-4.6) g/dL Urine Color Yellow (Yellow) Urine Appearance Hazy A (CLEAR) Urine pH 7 (5-7) Ur Specific Gravit y 1.010 (1.005-1.030) Urine Protein Neg (Negative) Urine Glucose (UA) Norm (Normal) Urine Ketones Negative (Negative) Urine Blood Neg (Negative) Urine Nitrate Positive H (Negative) Urine Bilirubin Neg (Negative) Urine Urobilinogen Norm (Negative) mg/dL Ur Leukocyte Keke ase 1+ H (Negative) Urine RBC 0-4 H (0-2) /hpf Urine WBC 5-10 H (0-5) /hpf Ur Squamous Epith Cells 0-4 H (0-5) /hpf Amorphous Sediment Not Reportable Urine Bacteria 4+ H (NONE) /hpf Acetaminophen (10-30) ug/mL Ethyl Alcohol (0-10) mg/dL SARS-CoV-2 Ag (Rap id) Negative (Negative) Imaging Data^: CT Head: Attestation: I personally reviewed and interpreted this imaging study as follows: Radiologist's impression: IMPRESSION: No evidence of active or acute intracranial pathologic process, hemorrhage, or trauma. CXR: Attestation: I personally reviewed and interpreted this imaging study as follows: Radiologist's impression: IMPRESSION: Nonacute. CTA Head and Neck: Attestation: I personally reviewed and interpreted this imaging study as follows: Radiologist's impression: FINDINGS: ANTERIOR CIRCULATION: Right internal carotid artery: Minimal cerebral arteriosclerosis of the internal carotid artery terminus. Intracranial segment is patent with no significant stenosis. No aneurysm. Right middle cerebral artery: Unremarkable. No occlusion or significant stenosis. No aneurysm. Right anterior cerebral artery: Mildly hypoplastic right A1 segment. No occlusion or significant stenosis. No aneurysm. Left internal carotid artery: Minimal cerebral arteriosclerosis of the internal carotid artery terminus. Intracranial segment is patent with no significant stenosis. No aneurysm. Left middle cerebral artery: Unremarkable. No occlusion or significant stenosis. No aneurysm. Left anterior cerebral artery: Unremarkable. No occlusion or significant stenosis. No aneurysm. POSTERIOR CIRCULATION: Right vertebral artery: Unremarkable. No occlusion or significant stenosis. No aneurysm. Left vertebral artery: Mildly hypoplastic. No occlusion or significant stenosis. No aneurysm. Basilar artery: Unremarkable. No occlusion or significant stenosis. No aneurysm. Right posterior cerebral artery: Unremarkable. No occlusion or significant stenosis. No aneurysm. Left posterior cerebral artery: Unremarkable. No occlusion or significant stenosis. No aneurysm. IMPRESSION: 1. No large vessel stenosis or occlusion. 2. Minimal cerebral arteriosclerosis of the internal carotid artery terminus bilaterally. 3. Mildly hypoplastic right A1 segment. 4. Mildly hypoplastic distal left vertebral artery. PROCEDURE INFORMATION: Exam: CT Angiography Neck With Contrast Exam date and time: 02/26/2021 6:42 PM Age: 70 years old Clinical indication: Other: Left side facial droop; Patient HX: Best images possible. 22g in hand. PT stuck multiple times. PT would not stop moving head and moaning. ; Additional info: CVA TECHNIQUE: Imaging protocol: Computed tomography angiography of the neck with contrast. 3D rendering (Not supervised by radiologist): MIP and/or 3D reconstructed images were created by the technologist. Radiation optimization: All CT scans at this facility use at least one of these dose optimization techniques: automated exposure control; mA and/or kV adjustment per patient size (includes targeted exams where dose is matched to clinical indication); or iterative reconstruction. Contrast material: OMNI 350; Contrast volume: 95 ml; Contrast route: INTRAVENOUS (IV); COMPARISON: CT head wo con* [id number] 02/26/2021 6:59 PM RADIATION DOSE METRICS: Total DLP (mGy-cm): 2224.32 FINDINGS: Right common carotid artery: No stenosis. No dissection or occlusion. Right internal carotid artery: No stenosis of the extracranial segment. No dissection or occlusion. Right external carotid artery: No occlusion or stenosis of the origin. Left common carotid artery: No stenosis. No dissection or occlusion. Left internal carotid artery: No stenosis of the extracranial segment. No dissection or occlusion. Left external carotid artery: No occlusion or stenosis of the origin. Right vertebral artery: No stenosis. No dissection or occlusion. Left vertebral artery: No stenosis. No dissection or occlusion. Aorta: Bovine aortic arch which is a normal anatomical variant. Arteriosclerosis. Thyroid: Right thyroid nodule measuring approximately 16 mm x 9 mm x 12 mm. Further evaluation with non-emergent thyroid ultrasound is recommended. Soft tissues: Normal. No significant soft tissue swelling. Bones/joints: No visible acute osseous abnormality. 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 Spondylosis deformans upper thoracic spine within the field of view. CT/CT angio headneck* [id number] IMPRESSION: 1. No visible evidence of stenosis, occlusion, or dissection. 2. Right thyroid nodule measuring approximately 16 mm x 9 mm x 12 mm. Further evaluation with non-emergent thyroid ultrasound is recommended. EKG Data^: EKG 1: Attestation: I personally reviewed and interpreted this EKG as follows: EKG interpretation date: 02/26/21 EKG interpretation time: 19:48 Prior EKG tracings: not available for review Interpretation: Sinus rhythm with a first-degree AV block. Heart rate 70. Computer generated interpretation: Head CT 02/26/21 18:42 IMPRESSION: No evidence of active or acute intracranial pathologic process, hemorrhage, or trauma. Radiation Dose CTDIVOL = (mGy): DLP = 885.11 (mGy-cm) Head/Neck CTA 02/26/21 18:42 IMPRESSION: 1. No visible evidence of stenosis, occlusion, or dissection. 2. Right thyroid nodule measuring approximately 16 mm x 9 mm x 12 mm. Further evaluation with non-emergent thyroid ultrasound is recommended. COMMENTS: Consistent with the [employer]'s Incidental Findings Committee white paper (J Am No Radiol 2015): In patients aged 35 years and older with an incidental thyroid nodule equal to or greater than 1.[address], MRI or extrathyroidal US, further evaluation with dedicated thyroid US is recommended for patients with normal life expectancy and without comorbidities. For smaller nodules without suspicious features, no further evaluation or follow up is recommended. REFERENCES: NASCET CRITERIA. The degree of internal carotid artery stenosis is based on NASCET criteria. Normal is no stenosis. Mild is less than 50% stenosis. Moderate is 50-69% stenosis. Severe is 70% to 99% stenosis. Total occlusion is no detectable patent lumen. Radiation Dose CTDIVOL = (mGy): DLP = 2224.32~2224.32 (mGy-cm) Chest X-Ray 02/26/21 18:43 IMPRESSION: Nonacute. Discharge Plan Discharge Patient Disposition: Placed in Observation Clinical Impression: Malignant hypertension, Vertigo, Stroke-like symptoms, Facial paralysis/[place] palsy Condition: Stable Coding Level of Care Code ED Etiquette Coach for Chg Fwd Exam Comprehensive
[2021-02-26 19:47] VITALS: BP 209/108
[2021-02-26] MEDS: hyDRALAzine 20 mg/mL INJ 1 mL 10 MG IVP (20:36)
--- NOTE | 2021-02-26 20:43 | ECG_ITS ---
[facility] Test Date: 2021-02-26 Pat Name: Niru Bowser Department: Room: Gender: Female Manufacturing Production Technician: : [id number] Requested By: Chris Boswell Order Number: [id number] Issac MD: Sarah Hardy M.D. Measurements Intervals Springer Rate: 91 P: 69 WA: 215 QRS: 39 QRSD: 94 T: 65 QT: 367 QTc: 452 Interpretive Statements SINUS RHYTHM WITH FIRST DEGREE AV BLOCK Compared to ECG 02/26/2021 19:48:52 No significant changes Electronically Signed On 02-28-2021 14:56:42 CDT by Sarah Hardy M.D. [id number]
[2021-02-26 20:58] VITALS: BP 196/110; PULSE 73; RESP 13; O2SAT 95
[2021-02-26 21:05] VITALS: BP 182/106; PULSE 75; RESP 19; O2SAT 99
[2021-02-26 21:15] LABS: Basophils % 0.5 %; Eosinophils # 0.1 10^3/uL (0.0-0.8); Eosinophils % 2.2 %; Hematocrit 45.4 % (37.0-47.0); Hemoglobin 13.6 g/dL (11.5-15.3); Lymphocytes % 18.8 %; Mean Corpuscular Hemoglobin 27.2 pg (28.0-34.0); Mean Corpuscular Volume 90.8 fL (81-99); Mean Platelet Volume 11.8 fL (7.4-10.4); Monocytes # 0.4 10^3/uL (0.2-0.9); Monocytes % 7.5 %; Neutrophils # 3.89 10^3/uL (1.8-7.7); Neutrophils % 70.8 %; Nucleated Red Blood Cells % 0 %; Platelet Count 189 10^3/cmm (130-400); Red Cell Distribution Width 14.5 % (12.1-15.1); White Blood Count 5.5 10^3/uL (4.0-10.0)
--- NOTE | 2021-02-26 21:19 | PC.NURSE ---
Pt to CT for cta
[2021-02-26] MEDS: iohexol 350 mg/mL 100 mL Btl IV (21:21)
[2021-02-26 21:33] LABS: SARS Covid-2 Antigen Negative (Negative)
[2021-02-26 21:33] LABS: Add Urine Microscopic? YES; Bilirubin Urine Neg (Negative); Blood Urine Neg (Negative); Glucose Urine UA Norm (Normal); Ketones Urine Negative (Negative); Leukocyte Esterase Urine 1+ (Negative); Nitrate Urine Positive (Negative); Protein Urine Neg (Negative); Urine Appearance Hazy (CLEAR); Urine Color Yellow (Yellow); Urobilinogen Urine Norm (Negative); pH Urine 7 (5-7)
[2021-02-26 21:34] LABS: Add Urine Culture? Yes; Bacteria Urine 4+ /hpf; RBC Urine 0-4 /hpf (0-2); Squamous Epithelial Cell Urine 0-4 /hpf (0-5)
[2021-02-26 21:42] LABS: Troponin(5th) Baseline 6 ng/L (0-10)
[2021-02-26 21:50] LABS: Alanine Aminotransferase 26 U/L (0-33); Albumin Level 4.4 g/dL (3.5-5.2); Alkaline Phosphatase 118 IU/L (35-105); Aspartate Amino Transferase 21 U/L (0-32); Blood Urea Nitrogen 16 mg/dL (8-23); Calcium 9.2 mg/dL (8.5-10.5); Carbon Dioxide 26 mmol/L (22-29); Chloride 102 mmol/L (98-107); Globulin 2.5 g/dL (1.3-4.6); Glucose 98 mg/dL (65-115); NT Pro B Type Natriuretic Pept 46 pg/mL (0-125); Osmolality Calculated 291 mOsm/kg (285-295); Sodium 140 mmol/L (136-145); Total Bilirubin 0.2 mg/dL (0.15-1.2); Total Protein 6.9 g/dL (6.6-8.7)
[2021-02-26 21:51] LABS: Acetaminophen < 5.0 ug/mL (10-30); Alcohol Level < 10 mg/dL (0-10); Anion Gap 15.9 (5-19); Potassium 3.9 mmol/L (3.5-5.1)
[2021-02-26 21:55] VITALS: BP 199/100
[2021-02-26 21:57] LABS: Partial Thromboplastin Time 28.8 SECONDS (23.9-36.7)
--- NOTE | 2021-02-26 22:33 | P.HP_ITS ---
Providers/Chief Complaint Primary Care Provider: Genoveva Larsen MD Chief Complaint: Stroke like Symptoms/Sent from [facility] History of Present Illness 70-year-old female with a past medical history significant for abdomina walll myfibroblastic tumor resected in 2016, hypothyroidism, diabetes mellitus, hyperlipidemia, and hypertension who presented to ER with left sided facial paralaysis. Patient stated she woke up around 5:30 am shortly after which is when she noticed left sided facial droop as well as inability to close her left eye lid. Symptoms continued to persist through out the days. Denied any speech abnormality or dysphagia. No visual deficits. Denied any numbness, tingling or unilateral extremity weakness. No gait abnormality. Denied piror history of stroke. Denied any recent fever, chills, nausea or vomiting. Also denied chest pain or dyspnea. Patient was relating her symptoms to insectaside spray which had back sprayed on her face on 02/25.No symptoms were noted at the time of this exposure. Upon arrival to ER patient was noted to have a NIH of 3. Initially Laboratory workup showed a WBC of 5.5, hemoglobin of 13.6, hematocrit of 45.4 and a platelet count of 189. INR of 1.0. Sodium 140, potassium 3.9, chloride 102, bicarb 26, BUN 16 and creatinine of 0.7. AST of 21, ALT of 26 an alkaline phosphatase of 118. Troponin trend was negative. Ammonia 51. ProBNP of 46. Urinalysis showed positive nitrites and 1+ leukocyte esterase with 4+ bacteria. Acetaminophen and alcohol level were negative as well as COVID-19 antigen.Imaging studies included a CT head without contrast which did not show any evidence of acute intracranial CTA head did not show any large vessel stenosis or occlusion, CTA neck also did not show any evidence of stenosis occlusion or dissection. However incidentally patient was noted have a right thyroid nodule measuring 16 mm x 9 mm x 12 m. Initial vital signs on arrival showed a blood pressure that trended up to 209/108. Heart rate 73, Patient was given hydralazine 10 mg IV x 1. Review of Systems General: Reports: 10 or more systems reviewed and unremarkable except in HPI and below Medications/Allergies Home Medications Medication Instructions Recorded Confirmed Last Taken Type ciprofloxacin 0.3 %-dexamethasone 4 drop EAR-BOTH BID@0800,1800 10/13/19 02/26/21 02/26/21 History 0.1 % ear drops,suspension levothyroxine 50 mcg capsule 50 mcg PO DAILY@0500 10/13/19 02/26/21 02/26/21 History rosuvastatin 5 mg tablet 5 mg PO DAILY@0910/13/19 02/26/21 02/26/21 History hydrochlorothiazide 25 mg PO DAILY PRN 07/14/20 02/26/21 07/14/20 History diclofenac sodium [Voltaren] 4 g TOPICAL QID #100 g 07/18/20 02/26/21 Unknown Rx aspirin 81 mg PO DAILY 02/26/21 02/26/21 02/26/21 History 81mg + 325mg = 406mg calcium 500 mg PO DAILY@209902/26/21 02/26/21 02/25/21 History cholecalciferol (vitamin D3) 25 mcg PO DAILY@209902/26/21 02/26/21 02/25/21 History [Vitamin D3] coenzyme Q10 50 mg PO DAILY@89902/26/21 02/26/21 02/26/21 History metoprolol tartrate 50 mg PO BID@02/26/21 02/26/21 02/26/21 History ramipril 1.25 mg PO DAILY@209902/26/21 02/26/21 02/25/21 History Allergies Allergy/AdvReac Type Severity Reaction Status Date / Time ciprofloxacin [From Cipro] Allergy Unknown Verified 02/26/21 17:52 codeine Allergy Unknown Verified 02/26/21 17:52 hydrochlorothiazide Allergy Unknown Verified 02/26/21 17:52 [From Hyzaar] losartan Allergy unknown Verified 02/26/21 17:52 meperidine [From Demerol] Allergy Unknown Verified 02/26/21 17:52 Opioids-Meperidine and Allergy unknown Verified 02/26/21 17:52 Related quinapril Allergy unknown Verified 02/26/21 17:52 tramadol Allergy Unknown Verified 02/26/21 17:52 PFSH Acute PFSH: Medical History Diabetes Diet controlled Hypertension Hypothyroidism Vertigo Surgical History Abdominal tumor Operated on by gynecologic surgeon in 2015 History of bladder suspension procedure History of hysterectomy / BSO Normal colonoscopy 2016 ([facility]) Family History Mother , AT AGE 73-DIABETES,THYROID DISEASE Diabetes Father , FATHER AT AGE 85-DIABETES Diabetes Social History Smoking and tobacco status: never smoked Alcohol intake: never Vitals/I&O/Wt Last Vital Signs Temp 98.6 F 02/26/21 17:52 Pulse 91 02/27/21 00:00 Resp 18 02/27/21 00:00 BP 174/100 02/27/21 00:00 Pulse Ox 99 02/26/21 21:05 Weight last 48 hrs Weight 88.451 kg Physical Exam Narrative: EXAM NARRATIVE: General : Alert, awake, NAD HEENT: EOMI, PERRLA Neuro: MS 5/5, No sensory deficits. CN 2-12 intact exp.CN 7- L. side ptosis, and droop. Facial asymmetry CVS; RRR, No M.R.G Chest : CTABL ABD; Soft, NT,ND Ext : no edema . Data : 02/26/21 20:33 02/26/21 20:33 A&P Assessment and plan (1) Facial paralysis/Ulman palsy: NIH 3 on arrival - Will r/o CVA Dx consistent with Ulman Palsy [place]cks Bedside swallow - start diet if no risk of aspiration PT/OT/ST consulted CT head - negative CTA H&N - no stenosis MRI w/wo contrast ordered Asprin 81 mg PO daily Lipitor 40 mg PO daily A1c and lipid panel in am Will also start on Prednisone 25 mg PO BID x 10 days Check ESR now Will also check Lyme abs however low suspecion - no tick exposure Monitor on telemetry Status: Acute (2) Hypertensive urgency: Less likely CVA - However will decrease BP 15-20% over 24hr Was given hydralazine 10 mg IV in ER Metoprolol 25 mg PO BID Norvasc 10 mg PO daily Clarify allergy to AYDEN/ARB/HCTZ - all of which were listed on home med rec Status: Acute (3) Abnormal urinalysis: Follow up on urine culture Rocephin 2g IV daily started Status: Acute (4) Hypothyroidism: Noted to have thyrod nodule incidently on CTA neck Outpatient US recommeded TSH in am Resume Levo 50 mcg PO daily Status: Acute (5) DVT prophylaxis: Lovenox 40 mg SQ daily to start tomorrow SCDS Status: Acute Attestations Medical Necessity Statement*: Anticipate less than 2 midnight stay in hospital for eval and treatment of left side facial paralysis and hypertensive urgency Time Spent in Patient Care: Greater than 35 minutes (>than 50% of time spent in counselling and/or direct pt care on unit) . Coding Level of Care Code Acute Warehouse Stock Clerk for Chg Fwd Diagnoses Facial paralysis/Ulman palsy G51.0 Hypertensive urgency I16.0 Abnormal urinalysis R82.90 Hypothyroidism E03.9 DVT prophylaxis Z29.9
[2021-02-27] VITALS (9 sets, daily range): BP systolic 136–204; BP diastolic 77–102; PULSE 88–120; RESP 11–19; TEMP 36.6–36.9; O2SAT 92–100
[2021-02-27 00:31] LABS: Troponin 5 2HR 6.57 ng/L (0-10)
[2021-02-27 00:34] LABS: Ammonia 51 umol/L (11-51)
--- NOTE | 2021-02-27 00:43 | ECG_ITS ---
[facility] Test Date: 2021-02-27 Pat Name: Niru Bowser Department: Room: 111 Gender: Female Hospice Bereavement Coordinator: : 1950 Requested By: Chris Boswell Order Number: [id number] Issac MD: Sarah Hardy M.D. Measurements Intervals [place] Rate: 99 P: 57 MN: 212 QRS: -14 QRSD: 101 T: 29 QT: 362 QTc: 466 Interpretive Statements SINUS RHYTHM WITH FIRST DEGREE AV BLOCK MODERATE VOLTAGE CRITERIA FOR LVH, CONSIDER NORMAL VARIANT [MEETS CRITERIA IN ONE OF: R(aVL), S(V1), R(V5), R(V5/V6)+S(V1)] Compared to ECG 02/26/2021 22:28:00 No significant changes Electronically Signed On 02-28-2021 14:56:51 CDT by Sarah Hardy M.D. [email or web address]
[2021-02-27 00:51] LABS: Troponin 5 2HR Delta 0.57 ABS# (0-10)
[2021-02-27 01:09] LABS: Erythrocyte Sedimentation Rate 21 mm/hr (0-15)
[2021-02-27] MEDS: predniSONE 20 mg Tablet 25 MG PO ×2 (01:35→08:57)
[2021-02-27] MEDS: acetaminophen 325 mg Tablet 650 MG PO (01:35)
[2021-02-27] MEDS: amlodipine 10 mg Tablet PO ×2 (01:35→08:58)
[2021-02-27] MEDS: SODIUM CHLORIDE 0.9% IV (02:08)
[2021-02-27] MEDS: CEFTRIAXONE IV (02:08)
[2021-02-27] MEDS: hyDRALAzine 20 mg/mL INJ 1 mL 10 MG IVP (03:47)
[2021-02-27 07:06] LABS: Troponin 5 6HR 6.75 ng/L (0-10)
[2021-02-27 07:22] LABS: Estmated Average Glucose 134; Hemoglobin A1C 6.3 % (4.0-6.0)
[2021-02-27 07:33] LABS: Chol HDL Ratio 3.02 mg/dL (0.0-4.40); Cholesterol 187 mg/dL (0-200); HDL Cholesterol 62 mg/dL (60-100); LDL Cholesterol Calculated 105 mg/dL (50-129); LDL HDL Ratio 1.69 RATIO (0.00-3.22); Triglycerides 99 mg/dL (0-150)
[2021-02-27 07:42] LABS: Glucose Point of Care 173 mg/dL (70-110)
[2021-02-27] MEDS: aspirin 81 mg Chew Tablet PO (08:57)
[2021-02-27] MEDS: levothyroxine 50 mcg Tablet PO (08:57)
[2021-02-27] MEDS: metoprolol tartrate 50 mg Tablet PO (08:58)
--- NOTE | 2021-02-27 10:30 | MR_ITS ---
WS: [id number] MRI HEAD WITH CONTRAST TECHNIQUE: Sagittal T1, T2 axial, T2 axial FLAIR, axial susceptibility weighted imaging, axial diffus ion weighted images, and coronal T2 images were obtained. Pre and post-T1 axial and post T1 coronal i mages. ADC and FSPGR images. CLINICAL INFORMATION: left facial paralysis r/o CVA COMPARISON: CTA February 26, 2021 FINDINGS: No evidence of restricted diffusion to suggest acute ischemia. Diffusion artifact in the right basal ganglia. Ventricular system and basal cisterns are patent.No hemosiderin on susceptibly weighted imag es. Moderate small vessel changes. Moderate parenchymal volume loss. Small vessel changes in the larry . Normal posterior fossa. Normal vascular flow voids at the skull base. No extra axial fluid collecti ons. No evidence of mass or mass effect. Normal optic chiasm and pituitary infundibulum. Moderate symmetric atrophy temporal lobes and hippoca mpal formations. No signal abnormalities in the medial temporal lobes. Normal cavernous sinuses and M eddie's cave. No abnormal intracranial enhancement. Normal dural venous sinuses. MR/MR head wo/w con [id number] IMPRESSION: 1. No evidence of restricted diffusion to suggest acute ischemia. 2. Moderate small vessel changes with moderate parenchymal volume loss. Small vessel changes in the larry. 3. No abnormal intracranial enhancement. 4. Moderate symmetric atrophy temporal lobes and hippocampal formations. 5. No hemosiderin on the susceptibly weighted images.
--- NOTE | 2021-02-27 11:02 | PC.CHAP ---
Pastoral Care Encounter/Spiritual Assessment Type of Contact [] Declined audio installer visit [] Patient/Family/Request visit [] Outpatient visit [] Follow-up visit [] Physician referral [] Code/Alert [x] Routine visit [] Staff referral [] Actively dying [] Patient sleeping [] Family support [] [] Out of room [] Palliative care [] [x] Receiving care in room [] Pre-surgical visit [] Trauma [x] Long length of stay [] ICU visit [] Other: Relational/Emotional Strength [x] Patient feels connected with others/family/visitors/staff [x] Distress [] Loneliness/isolation [] Abandonment Spirituality of Patient [x] Person of Sheela [] Attends Restorationist of their Sheela [x] Believes in Prayer [] Reads Bible or Sabianist materials [] There are Spiritual issues to be addressed Fern Gatherer Interventions [x] Prayer [x] Active listening [x] Non-anxious presence [x] Spiritual/emotional support [] Crisis/trauma care [x] Spiritual counseling [] Bereavement support [] Provided bereavement packet [] Provided Bible/devotional materials [] Provided toy/stuffed animal, coloring book to patient or family member [] Provided Communion [] Anointing/Alloway [] Salvation [x] Completed spiritual assessment [] Other: Impact on Illness or Injury [] Angry [] Fearful [] Anxious [] Often cries [x] Exhaustion [] Unable to work [] Unable to attend episcopalian [] Unable to walk/stand [] Unable to read [] Unable to drive [] Unable to eat/drink [] Unable to sleep [] Unable to be with family [] Patient intubated [] Other: Summary senior had an MRI tests doesn't know about tests or her health in pain weak doesn't when she can go home at this point in her health Time spent with patient 10 mins
[2021-02-27] MEDS: gadobenate dimeglumine 20 mL vial IV (11:06)
--- NOTE | 2021-02-27 14:05 | P.DS_ITS ---
Discharge Providers Date of Admission: 02/27/21 00:42 Date of Discharge: February 27, 2021 Attending Provider at Admission: Albertina Birmingham Attending Provider at Discharge: Manolo Cavanaugh MD Primary Care Provider: Genoveva Larsen MD Diagnoses at Discharge Discharge Diagnosis (1) Facial paralysis/Leroy palsy: Status: Acute (2) Hypertensive urgency: Status: Acute (3) Abnormal urinalysis: Status: Acute (4) Hypothyroidism: Status: Acute (5) DVT prophylaxis: Status: Acute Reason for Visit Reason for Visit: Stroke like Symptoms/Sent from [facility] Hospital Course HPI 70-year-old female with a past medical history significant for abdomina walll myfibroblastic tumor resected in 2016, hypothyroidism, diabetes mellitus, hyperlipidemia, and hypertension who presented to ER with left sided facial paralaysis. Patient stated she woke up around 5:30 am shortly after which is when she noticed left sided facial droop as well as inability to close her left eye lid. Symptoms continued to persist through out the days. Denied any speech abnormality or dysphagia. No visual deficits. Denied any numbness, tingling or unilateral extremity weakness. No gait abnormality. Denied piror history of stroke. Denied any recent fever, chills, nausea or vomiting. Also denied chest pain or dyspnea. Patient was relating her symptoms to insectaside spray which had back sprayed on her face on 02/25.No symptoms were noted at the time of this exposure. Upon arrival to ER patient was noted to have a NIH of 3. Initially Laboratory workup showed a WBC of 5.5, hemoglobin of 13.6, hematocrit of 45.4 and a platelet count of 189. INR of 1.0. Sodium 140, potassium 3.9, chloride 102, bicarb 26, BUN 16 and creatinine of 0.7. AST of 21, ALT of 26 an alkaline phosphatase of 118. Troponin trend was negative. Ammonia 51. ProBNP of 46. Urinalysis showed positive nitrites and 1+ leukocyte esterase with 4+ bacteria. Acetaminophen and alcohol level were negative as well as COVID-19 antigen.Imaging studies included a CT head without contrast which did not show any evidence of acute intracranial CTA head did not show any large vessel stenosis or occlusion, CTA neck also did not show any evidence of stenosis occlusion or dissection. However incidentally patient was noted have a right thyroid nodule measuring 16 mm x 9 mm x 12 m. Initial vital signs on arrival showed a blood pressure that trended up to 209/108. Heart rate 73, Patient was given hydralazine 10 mg IV x 1. Hospital course Patient was admitted for work-up of Lindsay's pellety, no skin rash noted herpes zoster infection less likely, patient was complaining of headache and some ear pain for which MRI was requested which was unremarkable, tick/Lyme disease unlikely, hemoglobin A1c 6.3 I would also not explain isolated Lindsay's Palsy. She will be discharged on prednisone taper 60 mg for 5 days then 20 mg for 3 days and then 10 mg for 3 days and then stop for steroid-induced hyperglycemia management I have given her NovoLog 10 with low-dose sliding scale range on discharge documentation She will get eye lubricant, artificial tears and eye pad to avoid dryness Would recommend ENT follow-up MR/MR head wo/w con [id number] IMPRESSION: 1. No evidence of restricted diffusion to suggest acute ischemia. 2. Moderate small vessel changes with moderate parenchymal volume loss. Small vessel changes in the larry. 3. No abnormal intracranial enhancement. 4. Moderate symmetric atrophy temporal lobes and hippocampal formations. 5. No hemosiderin on the susceptibly weighted images Medications added: Humalog pen, steroids, artificial tears, eye lubricant, amlodipine for hypertension, Meclizine and Zofran Physical Exam Narrative: EXAM NARRATIVE: General : Alert, awake, NAD HEENT: EOMI, PERRLA Neuro: MS 5/5, No sensory deficits. CN 2-12 intact exp.CN 7- L. side ptosis, and droop. Facial asymmetry CVS; RRR, No M.R.G Chest : CTABL ABD; Soft, NT,ND Ext : no edema . Discharge Data Data Completed and Pending: Completed Studies During Hospitalization Category Date Time Status CT angio headneck * [id number] Urge nt Cat Scan 02/26/21 18:[address] head wo con* [id number] Stat Cat Scan 02/26/21 18:42 Completed XR chest 1V ross ble [id number] Stat Exams 02/26/21 18:43 Completed MR head wo/w con [id number] Routine MRI 02/27/21 10:30 Completed Pending at discharge Category Date Time Status Hemoglobin A1C AM LABS Lab 02/28/21 04:00 Ordered Lipid Panel AM LA BS Lab 02/28/21 04:00 Ordered Lymes Western Blo t Routine Lab 02/27/21 05:30 Received Urine Culture Sta t Lab 02/26/21 20:33 Received CV carotid duplex BI* [id number] Routine Ultrasound 02/28/21 06:00 Ordered CV. echo complete * [id number] Routine Ultrasound 02/28/21 06:00 Ordered Labs from last 24 hours 02/27/21 02/27/21 02/27/21 07:39 05:30 05:30 WBC RBC Hgb Hct MCV MCH MCHC RDW Plt Count MPV Neut % (Auto) Lymph % (Auto) [place] % (Auto) Eos % (Auto) Baso % (Auto) Neut # (Auto) Lymph # (Auto) [place] # (Auto) Eos # (Auto) Baso # (Auto) Nucleated RBC % (a uto) Nucleated RBCs # ESR PT INR APTT Sodium Potassium Chloride Carbon Dioxide Anion Gap BUN Creatinine GFR Calculation Glucose POC Glucose 173 H Estimat Average Gl ucose Hemoglobin A1c Calculated Osmolal ity Calcium Total Bilirubin AST ALT Alkaline Phosphata se Ammonia Troponin T Baselin e Troponin T 120 Min [place] Troponin T Troponin T Hi Sens 6Hr Troponin T Hi Sens 6Hr Delta NT-Pro-B Natriuret Pep Total Protein Albumin Globulin Triglycerides 99 Cholesterol 187 LDL Cholesterol, C alc 105 HDL Cholesterol 62 LDL/HDL Ratio 1.69 Cholesterol/HDL Ra rupal 3.02 TSH 1.60 Urine Color Urine Appearance Urine pH Ur Specific Gravit y Urine Protein Urine Glucose (UA) Urine Ketones Urine Blood Urine Nitrate Urine Bilirubin Urine Urobilinogen Ur Leukocyte [place] Urine RBC Urine WBC Ur Squamous Epith Cells Amorphous Sediment Urine Bacteria Acetaminophen Ethyl Alcohol Lyme IgG (Western Blot 2) SARS-CoV-2 Ag (Rap id) 02/27/21 02/27/21 02/27/21 05:30 05:30 05:30 WBC RBC Hgb Hct MCV MCH MCHC RDW Plt Count MPV Neut % (Auto) Lymph % (Auto) [place] % (Auto) Eos % (Auto) Baso % (Auto) Neut # (Auto) Lymph # (Auto) [place] # (Auto) Eos # (Auto) Baso # (Auto) Nucleated RBC % (a uto) Nucleated RBCs # ESR PT INR APTT Sodium Potassium Chloride Carbon Dioxide Anion Gap BUN Creatinine GFR Calculation Glucose POC Glucose Estimat Average Gl ucose 134 Hemoglobin A1c 6.3 H Calculated Osmolal ity Calcium Total Bilirubin AST ALT Alkaline Phosphata se Ammonia Troponin T Baselin e Troponin T 120 Min [place] Delta Troponin T Troponin T Hi Sens 6Hr 6.75 Troponin T Hi Sens 6Hr Delta TNP NT-Pro-B Natriuret Pep Total Protein Albumin Globulin Triglycerides Cholesterol LDL Cholesterol, C alc HDL Cholesterol LDL/HDL Ratio Cholesterol/HDL Ra rupal TSH Urine Color Urine Appearance Urine pH Ur Specific Gravit y Urine Protein Urine Glucose (UA) Urine Ketones Urine Blood Urine Nitrate Urine Bilirubin Urine Urobilinogen Ur Leukocyte [place] Urine RBC Urine WBC Ur Squamous Epith Cells Amorphous Sediment Urine Bacteria Acetaminophen Ethyl Alcohol Lyme IgG (Western Blot 2) Pending SARS-CoV-2 Ag (Rap id) 02/26/21 02/26/21 02/26/21 21:02 20:33 20:33 WBC RBC Hgb Hct MCV MCH MCHC RDW Plt Count MPV Neut % (Auto) Lymph % (Auto) [place] % (Auto) Eos % (Auto) Baso % (Auto) Neut # (Auto) Lymph # (Auto) [place] # (Auto) Eos # (Auto) Baso # (Auto) Nucleated RBC % (a uto) Nucleated RBCs # ESR 21 H PT INR APTT Sodium Potassium Chloride Carbon Dioxide Anion Gap BUN Creatinine GFR Calculation Glucose POC Glucose Estimat Average Gl ucose Hemoglobin A1c Calculated Osmolal ity Calcium Total Bilirubin AST ALT Alkaline Phosphata se Ammonia Troponin T Baselin e Troponin T 120 Min [place] Troponin T Troponin T Hi Sens 6Hr Troponin T Hi Sens 6Hr Delta NT-Pro-B Natriuret Pep Total Protein Albumin Globulin Triglycerides Cholesterol LDL Cholesterol, C alc HDL Cholesterol LDL/HDL Ratio Cholesterol/HDL Ra rupal TSH Urine Color Yellow Urine Appearance Hazy A Urine pH 7 Ur Specific Gravit y 1.010 Urine Protein Neg Urine Glucose (UA) Norm Urine Ketones Negative Urine Blood Neg Urine Nitrate Positive H Urine Bilirubin Neg Urine Urobilinogen Norm Ur Leukocyte [place] 1+ H Urine RBC 0-4 H Urine WBC 5-10 H Ur Squamous Epith Cells 0-4 H Amorphous Sediment Not Reportable Urine Bacteria 4+ H Acetaminophen Ethyl Alcohol Lyme IgG (Western Blot 2) SARS-CoV-2 Ag (Rap id) Negative 02/26/21 02/26/21 02/26/21 20:33 20:33 20:33 WBC RBC Hgb Hct MCV MCH MCHC RDW Plt Count MPV Neut % (Auto) Lymph % (Auto) [place] % (Auto) Eos % (Auto) Baso % (Auto) Neut # (Auto) Lymph # (Auto) [place] # (Auto) Eos # (Auto) Baso # (Auto) Nucleated RBC % (a uto) Nucleated RBCs # ESR PT 13.50 INR 1.00 APTT 28.8 Sodium 140 Potassium 3.9 Chloride 102 Carbon Dioxide 26 Anion Gap 15.9 BUN 16 Creatinine 0.7 GFR Calculation Not Reportable Glucose 98 POC Glucose Estimat Average Gl ucose Hemoglobin A1c Calculated Osmolal ity 291 Calcium 9.2 Total Bilirubin 0.2 AST 21 ALT 26 Alkaline Phosphata se 118 H Ammonia Troponin T Baselin e 6 Troponin T 120 Min [place] Delta Troponin T Troponin T Hi Sens 6Hr Troponin T Hi Sens 6Hr Delta NT-Pro-B Natriuret Pep 46 Total Protein 6.9 Albumin 4.4 Globulin 2.5 Triglycerides Cholesterol LDL Cholesterol, C alc HDL Cholesterol LDL/HDL Ratio Cholesterol/HDL Ra rupal TSH Urine Color Urine Appearance Urine pH Ur Specific Gravit y Urine Protein Urine Glucose (UA) Urine Ketones Urine Blood Urine Nitrate Urine Bilirubin Urine Urobilinogen Ur Leukocyte [place] Urine RBC Urine WBC Ur Squamous Epith Cells Amorphous Sediment Urine Bacteria Acetaminophen < 5.0 L Ethyl Alcohol < 10 Lyme IgG (Western Blot 2) SARS-CoV-2 Ag (Rap id) 02/26/21 02/26/21 02/26/21 20:33 00:00 00:00 WBC 5.5 RBC 5.00 Hgb 13.6 Hct 45.4 MCV 90.8 MCH 27.2 L MCHC 30.0 RDW 14.5 Plt Count 189 MPV 11.8 H Neut % (Auto) 70.8 Lymph % (Auto) 18.8 [place] % (Auto) 7.5 Eos % (Auto) 2.2 Baso % (Auto) 0.5 Neut # (Auto) 3.89 Lymph # (Auto) 1.0 [place] # (Auto) 0.4 Eos # (Auto) 0.1 Baso # (Auto) 0.0 Nucleated RBC % (a uto) 0 Nucleated RBCs # 0.0 ESR PT INR APTT Sodium Potassium Chloride Carbon Dioxide Anion Gap BUN Creatinine GFR Calculation Glucose POC Glucose Estimat Average Gl ucose Hemoglobin A1c Calculated Osmolal ity Calcium Total Bilirubin AST ALT Alkaline Phosphata se Ammonia 51 Troponin T Baselin e Troponin T 120 Min [place] 6.57 Delta Troponin T 0.57 Troponin T Hi Sens 6Hr Troponin T Hi Sens 6Hr Delta NT-Pro-B Natriuret Pep Total Protein Albumin Globulin Triglycerides Cholesterol LDL Cholesterol, C alc HDL Cholesterol LDL/HDL Ratio Cholesterol/HDL Ra rupal TSH Urine Color Urine Appearance Urine pH Ur Specific Gravit y Urine Protein Urine Glucose (UA) Urine Ketones Urine Blood Urine Nitrate Urine Bilirubin Urine Urobilinogen Ur Leukocyte [place] Urine RBC Urine WBC Ur Squamous Epith Cells Amorphous Sediment Urine Bacteria Acetaminophen Ethyl Alcohol Lyme IgG (Western Blot 2) SARS-CoV-2 Ag (Rap id) Vitals: Last Vital Signs Temp 98.1 F 02/27/21 12:00 Pulse 102 H 02/27/21 12:00 Resp 19 H 02/27/21 12:00 BP 164/92 02/27/21 12:00 Pulse Ox 94 02/27/21 12:00 Discharge Plan Discharge Patient Disposition: Home Condition: Stable Prescriptions: New Artificial Eye Lubricant 83-15 % ointment 1 applic ophthalmic (eye) Q4H PRN (Reason: dry eye(s)) 20 Days Qty: 3.5 RF: 5 artifi.tears(hypromellose)(PF) 0.3 % drops 1 drp ophthalmic (eye) Q6H PRN (Reason: dry eyes) 20 Days Qty: 10 RF: 5 amlodipine 10 mg tablet 10 mg PO DAILY 30 Days Qty: 30 RF: 1 Novolog Flexpen U-100 Insulin 100 unit/mL (3 mL) insulin pen See Rx Instructions .ROUTE .COMPLEX MDD 10U Qty: 3 RF: 0 prednisone 20 mg tablet 20 mg PO DAILY 5 Days Qty: 15 RF: 0 prednisone 10 mg tablet 10 mg PO DAILY 3 Days Qty: 9 RF: 0 prednisone 10 mg tablet 10 mg PO DAILY 3 Days Qty: 3 RF: 0 (DME) Eye Pad Pad See Rx Instructions .Route Qty: 1 RF: 0 Zofran 4 mg tablet 4 mg PO DAILY Qty: 20 RF: 0 meclizine 25 mg tablet 12.5 mg PO TID PRN (Reason: vertigo) Qty: 14 RF: 0 Continued rosuvastatin [Crestor] 5 mg tablet 5 mg PO DAILY@0900 RF: 0 levothyroxine 50 mcg capsule 50 mcg PO DAILY@0500 RF: 0 Ciprodex 0.3-0.1 % drops,suspension 4 drop EAR-BOTH BID@0800,1800 RF: 0 hydrochlorothiazide 25 mg tablet 25 mg PO DAILY PRN (Reason: Edema) RF: 0 aspirin 81 mg Tablet,Chewable 81 mg PO DAILY RF: 0 ramipril 1.25 mg capsule 1.25 mg PO DAILY@2099 RF: 0 Vitamin D3 25 mcg (1,000 unit) Capsule 25 mcg PO DAILY@2099 RF: 0 coenzyme Q10 50 mg Tablet 50 mg PO DAILY@0900 RF: 0 Changed metoprolol tartrate 50 mg tablet 100 mg PO BID@ 30 Days Qty: 60 RF: 1 Discontinued diclofenac sodium [Voltaren] 1 % gel 4 g topical QID Qty: 100 RF: 0 calcium 500 mg Tablet 500 mg PO DAILY@2099 RF: 0 Discharge Orders: Discharge Order (Routine); Ordered 02/27/21 Ordered By: Manolo Cavanaugh Referrals: Genoveva Larsen MD [Primary Care Provider] - Lc Silver MD [Physician] - 7-10 days Discharge Diet: Diabetic Discharge Activity: Increase activity as tolerated Patient Instructions: Opioid Safety Activity Restrictions/Additional Instructions: You will take prednisone for 10 days 60 mg of prednisone for 5 days Then he will take 30 mg of prednisone for 3 days Then you will take 10 mg of prednisone for 3 days and then stop To avoid hyper glycemia due to steroids You will use Humalog insulin pen to control your blood sugar 1 41-1 80 blood sugar take insulin 2 units 181 to 220 mg/dL blood sugar take insulin 4 units 220- 260 take insulin 6 units 261-300 milligrams per deciliter take insulin 8U 301- 350 insulin 10 unit For your vertigo and nausea you will get meclizine and Zofran To avoid dryness of your left eye use eye patch artificial tears and lubricant Your MRI was unremarkable Discharge Attestations Time Spent in Discharge Care*: less than 30 min Status at Discharge: Cognitive status at discharge: cognitively intact , Behavioral status at discharge: cooperative , Quality Metrics Clinical Quality Measures During this hospital stay, did patient experience: None Coding Level of Care Code Acute Chg FW DC note Diagnoses Facial paralysis/Leroy palsy G51.0 Hypertensive urgency I16.0 Abnormal urinalysis R82.90 Hypothyroidism E03.9 DVT prophylaxis Z29.9
[2021-02-28 12:17] LABS: Lymes IGG WB <0.90 index
--- NOTE | 2021-02-28 13:21 | PC.SOCIAL ---
patient called to let us know the Novolog ordered is $400 and ins is not covering any of it. Called Dr Cavanaugh and received order to switch to Humalog with same dose and pens. Called [facility] and called in change for medication. [facility] quote obtained and was $47. Updated patient.
== END 2021-02-27 15:30 | disposition home or self-care (01) ==
LOC: ER 22:31 → CSU 02-27 00:42
PROVIDERS: Admitting Provider Hospitalist; Emergency Provider Emergency Medicine; PCP Internal Medicine; Visit Provider Internal Medicine
DX: G51.0 Bell's palsy (principal); I16.0 Hypertensive urgency; R82.90 Unspecified abnormal findings in urine; E03.9 Hypothyroidism, unspecified; Z29.9 Encounter for prophylactic measures, unspecified; E11.9 Type 2 diabetes mellitus without complications; Z79.4 Long term (current) use of insulin; I44.0 Atrioventricular block, first degree
CPT/HCPCS: 36415; 36416; 70450; 70496; 70498; 70553; 71045; 80053; 80061; 80307; 81001; 82140; 82962; 83036; 83880; 84443; 84484; 85025; 85610; 85651; 85730; 86617; 87077; 87086; 87186; 87426; 92507; 92523; 92610; 93005; 96365; 96375; 97165; 99285; A9577; G0378; J0360; J0696; J7512; Q9967

== ENCOUNTER 2021-05-16 13:23 | Outpatient (CLI) | payer MEDICARE, SELFPAY ==
--- NOTE | 2021-05-16 13:28 | US_ITS ---
WS: [id number] ULTRASOUND THYROID TECHNIQUE: Ultrasound of the thyroid. CLINICAL INFORMATION: HYPOTHYROIDISM COMPARISON: None. FINDINGS: Thyroid: Right and left thyroid lobes are normal in size and echotexture. Well-circumscribed hypoecho ic thyroid nodule mid pole measuring 1.3 x 1.1 x 1.1CM. Hypoechoic halo. Right thyroid lobe: 4.7 cm x 1.7 cm x 1.3 cm Left thyroid lobe: 4.1 cm x 1.1 cm x 1.2 cm. Isthmus: 0.2 mm. Cervical lymphadenopathy: Normal cervical lymph nodes. US/US thyroid [id number] IMPRESSION: Well-circumscribed hypoechoic right thyroid nodule measuring 1.3 x 1.1 x 1.1CM. Hypoechoic halo. This can be further evaluated with ultrasound-guided FNA.
== END 2021-05-16 13:24 | disposition home or self-care (01) ==
LOC: RAD 13:25
PROVIDERS: PCP Internal Medicine; Visit Provider Internal Medicine
DX: E03.9 Hypothyroidism, unspecified (principal); E04.1 Nontoxic single thyroid nodule
CPT/HCPCS: 76536

== ENCOUNTER 2021-06-25 10:19 | Outpatient (CLI) | payer MEDICARE, SELFPAY ==
--- NOTE | 2021-06-25 10:26 | XR_ITS ---
WS: [id number] Exam: XR hip RT 2-3V wo/w pel* [id number] Date/Time of Exam: 06/25/2021 10:33 AM Reason For Exam: PAIN IN R HIP No acute fracture or dislocation. Mild to moderate degenerative change of the joint compartment. Norm al soft tissues. XR/XR hip RT 2-3V wo/w pel* [id number] IMPRESSION: 1. Mild to moderate DJD. No fracture or dislocation.
== END 2021-06-25 10:20 | disposition home or self-care (01) ==
PROVIDERS: PCP Internal Medicine; Visit Provider Internal Medicine
DX: M16.11 Unilateral primary osteoarthritis, right hip (principal)
CPT/HCPCS: 73502

== ENCOUNTER 2022-01-30 14:15 | Outpatient (CLI) | payer MEDICARE, SELFPAY ==
--- NOTE | 2022-01-30 14:38 | MM_ITS ---
WS: [id number] BILATERAL SCREENING DIGITAL BREAST TOMOSYNTHESIS MAMMOGRAM WITH CAD HISTORY: SCREENING COMPARISON: 01/22/2021, 10/11/2017 Bilateral CC and MLO views with tomosynthesis and synthetic mammography submitted. Computer aided det ection analyzed. Breast composition: The breasts are heterogeneously dense, which may obscure small masses. No suspici ous masses, microcalcifications or architectural distortion. Bilateral asymmetries are stable. Distor tion of the RIGHT breast from a prior biopsy. Difficult positioning of the breast due to patient's ky phosis. MM/[place] [id number] IMPRESSION: BI-RADS: 2-Benign FOLLOW UP: 1 Year Follow-up
== END 2022-01-30 14:16 | disposition home or self-care (01) ==
LOC: RAD 14:16
PROVIDERS: PCP Internal Medicine; Visit Provider Electrodiagnostic Medicine
DX: Z12.31 Encounter for screening mammogram for malignant neoplasm of breast (principal)
CPT/HCPCS: 77063; 77067

== ENCOUNTER → 2022-02-02 09:01 | Outpatient (BNVA) | payer MEDICARE, SELFPAY | PROVIDERS: PCP Electrodiagnostic Medicine; Visit Provider Otolaryngology | DX: E04.1 Nontoxic single thyroid nodule (principal); E03.9 Hypothyroidism, unspecified; M26.621 Arthralgia of right temporomandibular joint | CPT/HCPCS: 99213 ==

== ENCOUNTER 2022-12-25 13:31 | Outpatient (CLI) | payer MEDICARE, SELFPAY ==
--- NOTE | 2022-12-25 | CTR_ITS ---
PROCEDURE INFORMATION: Exam: CT Head Without And With Contrast Exam date and time: 12/25/2022 3:19 PM Age: 72 years old Clinical indication: Condition or disease; History of cancer (specify primary cancer site): ; Primary cancer: Myofibroblastic sarcoma llq of abdomen; Additional info: HX soft tissue sarcoma TECHNIQUE: Imaging protocol: Computed tomography of the head without and with contrast. Radiation optimization: All CT scans at this facility use at least one of these dose optimization techniques: automated exposure control; mA and/or kV adjustment per patient size (includes targeted exams where dose is matched to clinical indication); or iterative reconstruction. Contrast material: OMNI 350; Contrast volume: 100 ml; Contrast route: INTRAVENOUS (IV); REPORTING DATA: Count of CT and Cardiac NM exams in prior 12 months: This patient has received 0 known CTs and 0 known cardiac nuclear medicine studies in the 12 months prior to the current study. COMPARISON: MR head wo/w con [id number] 02/27/2021 10:38 AM, head CT 02/26/2021 RADIATION DOSE METRICS: Total DLP (mGy-cm): 2310 FINDINGS: Brain: There is age-related volume loss. There is mild periventricular white matter lucency consistent with chronic microvascular disease. No infarct is identified. There is no hemorrhage or extra-axial collection. There is no mass or abnormal enhancement. Cerebral ventricles: There is no hydrocephalus. Paranasal sinuses: Mild ethmoid sinus mucosal thickening. No air-fluid levels. Mastoid air cells: Visualized mastoid air cells are well aerated. Bones/joints: Severe degenerative changes of the TM joints. No focal osseous lesion. No acute fracture. Soft tissues: Unremarkable. CT/CT head wo/w con [id number] IMPRESSION: 1. Mild chronic microvascular disease. 2. No evidence of intracranial metastatic disease. 3. No acute intracranial lesion or injury and no change from prior CT
--- NOTE | 2022-12-25 13:44 | CTR_ITS ---
PROCEDURE INFORMATION: Exam: CT Chest With Contrast; Diagnostic Exam date and time: 12/25/2022 3:19 PM Age: 72 years old Clinical indication: Condition or disease; Cancer; Intestine, large; Follow-up oncological assessment; Prior surgery; Surgery date: 6+ months; Surgery type: Myofibroblastic sarcoma tumor removed from llq, bladder suspension procedure, bladder repair, hyst; Patient HX: Llq pain, back pain, . myofibrosblastic sarcoma f/u, cyst on left kidney. ; Additional info: HX of soft tissue sarcoma TECHNIQUE: Imaging protocol: Diagnostic computed tomography of the chest with contrast. Radiation optimization: All CT scans at this facility use at least one of these dose optimization techniques: automated exposure control; mA and/or kV adjustment per patient size (includes targeted exams where dose is matched to clinical indication); or iterative reconstruction. Contrast material: OMNI 350; Contrast volume: 100 ml; Contrast route: INTRAVENOUS (IV); REPORTING DATA: Count of CT and Cardiac NM exams in prior 12 months: This patient has received 0 known CTs and 0 known cardiac nuclear medicine studies in the 12 months prior to the current study. COMPARISON: CT chest abdpel w/*[id number] 02/14/2021 10:36 AM RADIATION DOSE METRICS: Total DLP (mGy-cm): 1434.7 FINDINGS: Lungs: Seven several calcified right lung granulomas. Pleural spaces: Unremarkable. No pneumothorax. No pleural effusion. Heart: Cardiomegaly. Coronary arteries: Coronary artery atherosclerotic calcifications. Lymph nodes: Unremarkable. No enlarged lymph nodes. Vasculature: Unremarkable. No aortic aneurysm. Bones/joints: Unremarkable. No acute fracture. Soft tissues: Unremarkable. 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 myofibrosblastic sarcoma f/u, cyst on left kidney. ; Additional info: HX of soft tissue sarcoma TECHNIQUE: Imaging protocol: Computed tomography of the abdomen and pelvis with contrast. Radiation optimization: All CT scans at this facility use at least one of these dose optimization techniques: automated exposure control; mA and/or kV adjustment per patient size (includes targeted exams where dose is matched to clinical indication); or iterative reconstruction. Contrast material: OMNI 350; Contrast volume: 100 ml; Contrast route: INTRAVENOUS (IV); REPORTING DATA: Count of CT and Cardiac NM exams in prior 12 months: This patient has received 0 known CTs and 0 known cardiac nuclear medicine studies in the 12 months prior to the current study. COMPARISON: CT chest abdpel w/*[id number] 02/14/2021 10:36 AM RADIATION DOSE METRICS: Total DLP (mGy-cm): 1434.7 FINDINGS: Tubes, catheters and devices: Right sacral spinal stimulator. Liver: Hepatic steatosis. Gallbladder and bile ducts: Gallbladder is somewhat prominent, ultrasound could further evaluate this. Pancreas: Normal. No ductal dilation. Spleen: Normal. No splenomegaly. Adrenal glands: Normal. No mass. Kidneys and ureters: Right kidney cyst, negative for follow-up advised. Left kidney nonobstructing calyceal stone. Stomach and bowel: Constipation. Diverticulosis without diverticulitis Appendix: No evidence of appendicitis. Intraperitoneal space: Unremarkable. No free air. No significant fluid collection. Vasculature: Unremarkable. No abdominal aortic aneurysm. Lymph nodes: Unremarkable. No enlarged lymph nodes. Urinary bladder: Small urinary bladder cystocele is somewhat visualized. Reproductive: Unremarkable as visualized. Bones/joints: Unremarkable. No acute fracture. Soft tissues: Unremarkable. CT/CT chest abdpel w/*[id number] IMPRESSION: 1. Negative for pulmonary embolus. 2. Cardiomegaly. 3. Coronary artery atherosclerotic calcifications. 4. Seven several calcified right lung granulomas. IMPRESSION: 1. Gallbladder is somewhat prominent, ultrasound could further evaluate this. 2. Hepatic steatosis. 3. Right kidney cyst, negative for follow-up advised. 4. Left kidney nonobstructing calyceal stone. 5. Constipation. 6. Small urinary bladder cystocele is somewhat visualized. 7. Right sacral spinal stimulator. 8. Diverticulosis without diverticulitis COMMENTS: Consistent with the [employer]'s Incidental Findings Committee white paper (J Am No Radiol 2018): Any incidental renal lesion less than 1 cm or classified as too small to characterize, or any incidental cystic renal lesion characterized as simple-appearing, is likely benign. No follow-up imaging is recommended for these lesions per consensus recommendations based on imaging criteria.
[2022-12-25 15:16] LABS: Blood Urea Nitrogen 13 mg/dL (8-23)
[2022-12-25] MEDS: iohexol 350 mg/mL 500 mL Btl (per mL) PO (15:43)
[2022-12-25] MEDS: iohexol 350 mg/mL 500 mL Btl (per mL) IV (15:43)
== END 2022-12-25 13:32 | disposition home or self-care (01) ==
LOC: RAD 13:36
PROVIDERS: PCP Electrodiagnostic Medicine; Visit Provider Electrodiagnostic Medicine
DX: Z85.831 Personal history of malignant neoplasm of soft tissue (principal); I51.7 Cardiomegaly; I25.10 Atherosclerotic heart disease of native coronary artery without angina pectoris; I67.89 Other cerebrovascular disease; J98.4 Other disorders of lung; K76.0 Fatty (change of) liver, not elsewhere classified; N20.0 Calculus of kidney; K59.00 Constipation, unspecified; N81.10 Cystocele, unspecified; K57.90 Diverticulosis of intestine, part unspecified, without perforation or abscess without bleeding; Z96.82 Presence of neurostimulator
CPT/HCPCS: 70470; 71260; 74177; 82565; 84520; Q9967

== ENCOUNTER 2023-03-17 20:00 | Outpatient (CLI) | payer MEDICARE, SELFPAY | END 2023-03-17 20:01 | disposition home or self-care (01) | LOC: SLEEP 03-18 05:27 | PROVIDERS: PCP Electrodiagnostic Medicine; Visit Provider Electrodiagnostic Medicine | DX: G47.33 Obstructive sleep apnea (adult) (pediatric) (principal) | CPT/HCPCS: 95811 ==

== ENCOUNTER 2023-04-02 15:19 | Outpatient (CLI) | payer MEDICARE, SELFPAY ==
--- NOTE | 2023-04-02 15:25 | MM_ITS ---
WS: [id number] BILATERAL 3D TOMOSYNTHESIS DIGITAL SCREENING MAMMOGRAPHY WITH CAD CLINICAL INFORMATION: SCREENING HISTORY: Screening mammogram. No current complaints. COMPARISON: 2021 TECHNIQUE: Bilateral CC and MLO views. FINDINGS: The breasts are composed of heterogeneous fibroglandular density tissue, which can limit the detectio n of small underlying mass lesions. No suspicious mass, asymmetry, calcifications, or architectural d istortion. No evidence of malignancy. Few incidental punctate calcifications. IMPRESSION: MM/[place] [id number] BI-RADS: 2-Benign FOLLOW UP: 1 Year Follow-up Recommend return to annual screening mammography.
== END 2023-04-02 15:20 | disposition home or self-care (01) ==
PROVIDERS: PCP Electrodiagnostic Medicine; Visit Provider Electrodiagnostic Medicine
DX: Z12.31 Encounter for screening mammogram for malignant neoplasm of breast (principal)
CPT/HCPCS: 77063; 77067

== ENCOUNTER 2024-04-07 15:09 | Inpatient (IN) | payer MEDICARE, SELFPAY ==
[2024-04-07 15:27] VITALS: BP 141/86; PULSE 113; RESP 17; TEMP 36.8; O2SAT 96; BMI 311.1
[2024-04-07 16:04] LABS: Basophils % 0.2 %; Eosinophils # 0.1 10^3/uL (0.0-0.8); Eosinophils % 1.1 %; Hematocrit 46.5 % (36-47); Lymphocytes # 0.6 10^3/uL (0.8-4.8); Lymphocytes % 10.2 %; Mean Corpuscular Hemoglobin 28.4 pg (27-33); Mean Corpuscular Volume 88.6 fl (85-98); Mean Platelet Volume 10.3 fL (7.4-10.4); Monocytes # 0.4 10^3/uL (0.2-0.9); Monocytes % 7.5 %; Neutrophils # 4.52 10^3/uL (1.8-7.7); Neutrophils % 80.8 %; Nucleated Red Blood Cells % 0 %; Platelet Count 195 10^3/cmm (157-399); Red Blood Count 5.25 10^6/uL (3.85-5.65); Red Cell Distribution Width 13.7 % (12.1-15.1); White Blood Count 5.59 10^3/uL (3.29-11.43)
[2024-04-07 16:26] LABS: Alanine Aminotransferase 7 U/L (0-33); Albumin Level 4.2 g/dL (3.5-5.2); Alkaline Phosphatase 96 U/L (35-105); Anion Gap 19.2 (5-19); Aspartate Amino Transferase 11 U/L (0-32); Blood Urea Nitrogen 17 mg/dL (8-23); Calcium 9.3 mg/dL (8.5-10.5); Carbon Dioxide 24 mmol/L (22-29); Chloride 96 mmol/L (98-107); Creatinine Clr Calc Pharmacy 319.8686; Glucose 135 mg/dL (65-115); Lipase 20 U/L (13-60); Osmolality Calculated 284 mOsm/kg (285-295); Potassium 4.2 mmol/L (3.5-5.1); Sodium 135 mmol/L (136-145); Total Protein 7.2 g/dL (6.6-8.7)
--- NOTE | 2024-04-07 18:13 | ED_ITS ---
Documented by User: Drew Sidhu DO 04/08/24 08:12 HPI - Nausea/Vomiting/Diarrhea 2 General: Chief complaint: Nausea/Vomiting/Diarrhea Stated complaint: NV Time Seen by Provider: 04/07/24 17:56 History of Present Illness: 74-year-old female presents to the [facility] ency room complaining of nausea vomiting abdominal pain and bloating began yesterday and is progressively worsened. He is not having hematochezia occasionally hematemesis or coffee-ground emesis. She has a small bowel obstruction in the past that resolved conservatively. She has not had any fever sweats chills no upper respiratory symptoms. Associated nausea: Yes Associated symtoms: Reports nausea; Denies chest pain or dysuria Related Data Home Medications Medication Instructions Recorded Confirmed levothyroxine 50 mcg capsule 50 mcg PO DAILY@0500 10/13/19 04/07/24 rosuvastatin 5 mg tablet (Crestor) 5 mg PO DAILY@0910/13/19 04/07/24 cholecalciferol (vitamin D3) 25 25 mcg PO DAILY@2100 02/26/21 04/07/24 mcg (1,000 unit) capsule (Vitamin D3) coenzyme Q10 50 mg tablet 50 mg PO DAILY@0902/26/21 04/07/24 ondansetron HCl 4 mg tablet 4 mg PO DAILY PRN Nausea 04/07/24 04/07/24 Previous Rx's Medication Instructions Recorded artifi.tears(hypromellose)(PF) 0.3 1 drp ophthalmic (eye) Q6H PRN dry 02/27/21 % eye drops eyes 20 days #10 mL eye patch (Eye Pad) #1 ea 02/27/21 meclizine 25 mg tablet 12.5 mg (1/2 x 25 mg) PO TID PRN 02/27/21 vertigo #14 tabs metoprolol tartrate 50 mg tablet 100 mg (2 x 50 mg) PO BID@02/27/21 days #60 tabs white petrolatum-mineral oil 83 1 applic ophthalmic (eye) Q4H PRN 02/27/21 %-15 % eye ointment (Artificial dry eye(s) 20 days #3.5 grams Eye Lubricant) Allergies Allergy/AdvReac Type Severity Reaction Status Date / Time ciprofloxacin [From Cipro] Allergy Unknown Verified 08/18/23 18:48 codeine Allergy Unknown Verified 08/18/23 18:48 hydrochlorothiazide Allergy Unknown Verified 08/18/23 18:48 [From Hyzaar] losartan Allergy unknown Verified 08/18/23 18:48 meperidine [From Demerol] Allergy Unknown Verified 08/18/23 18:48 Opioids-Meperidine and Allergy unknown Verified 08/18/23 18:48 Related quinapril Allergy unknown Verified 08/18/23 18:48 tramadol Allergy Unknown Verified 08/18/23 18:48 Review of Systems 2 Const: Denies: fever(s) or chills Card: Denies: chest pain Resp: Denies: dyspnea GI: Reports: abdominal pain, nausea, vomiting and diarrhea (Watery) : Denies: dysuria, urinary frequency or urinary urgency Musc: Denies: neck pain or back pain Skin/Breast: Denies: rash PFSH ED 2 PFSH: Medical History (Updated 04/08/24 @ 00:39 by Ivan Smith DO) TMJ arthralgia Thyroid Nodule Steroid-induced hyperglycemia 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 Recurrent UTI Overactive bladder Incontinence History of sarcoma myofibroblastic Cancer Hypertension DVT prophylaxis Hypothyroidism Abnormal urinalysis Hypertensive urgency Stroke-like symptoms Diabetes Diet controlled Hypothyroidism Hypertension Vertigo Surgical History Status post hysterectomy Status post bladder repair Status post colonoscopy Normal colonoscopy 2015 ([place]) History of bladder suspension procedure Abdominal tumor Operated on by gynecologic surgeon in [place] 2015 History of hysterectomy / BSO Family History Mother , AT AGE 73-DIABETES,THYROID DISEASE Diabetes Father , FATHER AT AGE 85-DIABETES Diabetes Social History Smoking and tobacco/nicotine status: never used tobacco/nicotine Alcohol intake: never Physical Exam 2 Const: GENERAL APPEARANCE: cooperative ORIENTATION/CONSCIOUSNESS: Yes awake, Yes oriented to person, Yes oriented to place and Yes oriented to time HENMT: COMMON NORMALS: normocephalic, atraumatic and hearing grossly normal bilaterally HEAD & SCALP: normocephalic and atraumatic Resp: COMMON NORMALS: normal respiratory effort, No retractions, No use of accessory muscles and clear to auscultation bilaterally AUSCULTATION: clear to auscultation bilaterally Cardio: COMMON NORMALS: regular rate, regular rhythm and No murmurs present (Cardio) RATE: regular rate RHYTHM: regular rhythm GI: COMMON NORMALS: Soft to palpation and No hepatosplenomegaly present A USCULTATION: Yes normoactive bowel sounds PALPATION: Yes Soft to palpation, No Tenderness to palpation present (GI), No Guarding due to palpation present (GI) and Yes No hepatosplenomegaly present Extremity: COMMON NORMALS: normal to inspection, capillary refill normal, no clubbing, cyanosis or edema, no calf tenderness and no pedal edema Neuro: SENSORIUM/ORIENTATION: Yes oriented to person, Yes oriented to place and Yes oriented to time Skin: COMMON NORMALS: no rashes or lesions noted GENERAL SKIN EXAM: no rashes or lesions noted Course 2 Vital Signs: Vital signs: Vital Signs Temperature 98.6 F 04/08/24 07:27 Pulse Rate 67 04/08/24 07:27 Respiratory Rate 14 04/08/24 07:27 Blood Pressure 148/92 04/08/24 07:27 Pulse Oximetry 91 04/08/24 07:27 Oxygen Delivery Me thod Room Air 04/08/24 07:27 MDM - Nausea/Vomiting/Diarrhea Medical Decision Making Care signed out to Dr. Smith at change of shift. See final notes for diagnosis and disposition. 74-year-old female presenting with vomiting and diarrhea. She was checked out at shift change. Blood pressure has been normal. Initially she was tachycardic, but responded to fluids. She is afebrile. CBC is normal. Lactic acid is 1.2. BMP is not remarkable. CT is remarkable for duodenitis versus duodenal ulcer. Spoke with surgery. Recommendations are medical management possible. Spoke with hospitalist who is willing to admit. She will receive fluids, PPI, supportive therapy. Lab Data 04/08/24 02:40 04/08/24 02:40 Radiology Impressions Abdomen/Pelvis CT 04/07/24 18:31 IMPRESSION: 1. Fluid tracking in the right retroperitoneal reflection and abutting the duodenal highly suspicious for duodenal pathology there is suggestion of moderate duodenal thickening as well. Pancreatitis could also have this appearance though duodenitis or duodenal ulcer is suspected. 2. Multiple prominent fluid-filled segments of small bowel in the lower abdomen raise concern for at least partial small bowel obstruction. Ileus could also have this appearance. 3. Other nonemergent findings above. ADDENDUM: 04/07/241917 THIS REPORT CONTAINS FINDINGS THAT MAY BE CRITICAL TO PATIENT CARE. The findings were verbally communicated via telephone conference with DREW SIDHU at 7:17 PM CDT on 04/07/2024. The findings were acknowledged and understood. Laboratory Results WBC 5.59 10^3/uL (3.29-11.43) 04/07/24 15:50 RBC 5.25 10^6/uL (3.85-5.65) 04/07/24 15:50 Hgb 14.90 g/dL (11.27-16.99) 04/07/24 15:50 Hct 46.5 % (36-47) 04/07/24 15:50 MCV 88.6 fl (85-98) 04/07/24 15:50 MCH 28.4 pg (27-33) 04/07/24 15:50 MCHC 32.0 g/dL (30-55) 04/07/24 15:50 RDW 13.7 % (12.1-15.1) 04/07/24 15:50 Plt Count 195 10^3/cmm (157-399) 04/07/24 15:50 MPV 10.3 fL (7.4-10.4) 04/07/24 15:50 Neut % (Auto) 80.8 % 04/07/24 15:50 Lymph % (Auto) 10.2 % 04/07/24 15:50 [place] % (Auto) 7.5 % 04/07/24 15:50 Eos % (Auto) 1.1 % 04/07/24 15:50 Baso % (Auto) 0.2 % 04/07/24 15:50 Neut # (Auto) 4.52 10^3/uL (1.8-7.7) 04/07/24 15:50 Lymph # (Auto) 0.6 10^3/uL (0.8-4.8) L 04/07/24 15:50 [place] # (Auto) 0.4 10^3/uL (0.2-0.9) 04/07/24 15:50 Eos # (Auto) 0.1 10^3/uL (0.0-0.8) 04/07/24 15:50 Baso # (Auto) 0.0 10^3/uL (0.0-0.1) 04/07/24 15:50 Nucleated RBC % (auto) 0 % 04/07/24 15:50 Nucleated RBCs # 0.0 /100WBC 04/07/24 15:50 Sodium 135 mmol/L (136-145) L 04/07/24 15:50 Potassium 4.2 mmol/L (3.5-5.1) 04/07/24 15:50 Chloride 96 mmol/L (98-107) L 04/07/24 15:50 Carbon Dioxide 24 mmol/L (22-29) 04/07/24 15:50 Anion Gap 19.2 (5-19) H 04/07/24 15:50 BUN 17 mg/dL (8-23) 04/07/24 15:50 Creatinine 0.6 mg/dL (0.5-0.9) 04/07/24 15:50 GFR Calculation Not Reportable 04/07/24 15:50 Glucose 135 mg/dL (65-115) H 04/07/24 15:50 Calculated Osmolality 284 mOsm/kg (285-295) L 04/07/24 15:50 Lactic Acid 1.2 mmol/L (0.5-2.2) 04/07/24 15:50 Calcium 9.3 mg/dL (8.5-10.5) 04/07/24 15:50 Total Bilirubin 1.0 mg/dL (0.15-1.2) 04/07/24 15:50 AST 11 U/L (0-32) 04/07/24 15:50 ALT 7 U/L (0-33) 04/07/24 15:50 Alkaline Phosphatase 96 U/L (35-105) 04/07/24 15:50 Total Protein 7.2 g/dL (6.6-8.7) 04/07/24 15:50 Albumin 4.2 g/dL (3.5-5.2) 04/07/24 15:50 Globulin 3.0 g/dL (1.3-4.6) 04/07/24 15:50 Lipase 20 U/L (13-60) 04/07/24 15:50 Procalcitonin 0.21 ng/mL (0-0.5) 04/07/24 15:50 Urine Color Yellow (Yellow) 04/07/24 20:12 Urine Appearance Cloudy (CLEAR) A 04/07/24 20:12 Urine pH 5.5 (5-7) 04/07/24 20:12 Ur Specific [place] 1.012 (1.005-1.030) 04/07/24 20:12 Urine Protein Negative (Negative) 04/07/24 20:12 Urine Glucose (UA) Negative (Normal) 04/07/24 20:12 Urine Ketones 2+ (Negative) H 04/07/24 20:12 Urine Blood Negative (Negative) 04/07/24 20:12 Urine Nitrate Positive (Negative) A 04/07/24 20:12 Urine Bilirubin Negative (Negative) 04/07/24 20:12 Urine Urobilinogen 1.0 mg/dL (Negative) 04/07/24 20:12 Ur Leukocyte Esterase 2+ (Negative) A 04/07/24 20:12 Urine RBC 0-2 /hpf (0-2) 04/07/24 20:12 Urine WBC 51-100 /hpf (0-5) H 04/07/24 20:12 Ur Squamous Epith Cells 0-5 /hpf (0-5) 04/07/24 20:12 Amorphous Sediment Not Reportable 04/07/24 20:12 Urine Bacteria 4+ /hpf (NONE) H 04/07/24 20:12 Hyaline Casts 1.65 /lpf 04/07/24 20:12 Discharge Plan Discharge Patient Disposition: Admitted As Inpatient Admit Provider: Jimmy Greer Clinical Impression: Duodenitis, Intractable nausea and vomiting, UTI (urinary tract infection) Condition: Stable Coding Level of Care Code ED Embedded Software Development Engineer for Chg Fwd Documented by User: Ivan Smith DO 04/08/24 00:39 HPI - Nausea/Vomiting/Diarrhea 2 General: Chief complaint: Nausea/Vomiting/Diarrhea Stated complaint: NV Time Seen by Provider: 04/07/24 17:56 Related Data Home Medications Medication Instructions Recorded Confirmed levothyroxine 50 mcg capsule 50 mcg PO DAILY@0500 10/13/19 04/07/24 rosuvastatin 5 mg tablet (Crestor) 5 mg PO DAILY@0900 10/13/19 04/07/24 cholecalciferol (vitamin D3) 25 25 mcg PO DAILY@2100 02/26/21 04/07/24 mcg (1,000 unit) capsule (Vitamin D3) coenzyme Q10 50 mg tablet 50 mg PO DAILY@0902/26/21 04/07/24 ondansetron HCl 4 mg tablet 4 mg PO DAILY PRN Nausea 04/07/24 04/07/24 Previous Rx's Medication Instructions Recorded artifi.tears(hypromellose)(PF) 0.3 1 drp ophthalmic (eye) Q6H PRN dry 02/27/21 % eye drops eyes 20 days #10 mL eye patch (Eye Pad) #1 ea 02/27/21 meclizine 25 mg tablet 12.5 mg (1/2 x 25 mg) PO TID PRN 02/27/21 vertigo #14 tabs metoprolol tartrate 50 mg tablet 100 mg (2 x 50 mg) PO BID@02/27/21 days #60 tabs white petrolatum-mineral oil 83 1 applic ophthalmic (eye) Q4H PRN 02/27/21 %-15 % eye ointment (Artificial dry eye(s) 20 days #3.5 grams Eye Lubricant) Allergies Allergy/AdvReac Type Severity Reaction Status Date / Time ciprofloxacin [From Cipro] Allergy Unknown Verified 08/18/23 18:48 codeine Allergy Unknown Verified 08/18/23 18:48 hydrochlorothiazide Allergy Unknown Verified 08/18/23 18:48 [From Hyzaar] losartan Allergy unknown Verified 08/18/23 18:48 meperidine [From Demerol] Allergy Unknown Verified 08/18/23 18:48 Opioids-Meperidine and Allergy unknown Verified 08/18/23 18:48 Related quinapril Allergy unknown Verified 08/18/23 18:48 tramadol Allergy Unknown Verified 08/18/23 18:48 PFSH ED 2 PFSH: Medical History (Updated 04/08/24 @ 00:39 by Ivan Smith DO) TMJ arthralgia Thyroid Nodule Steroid-induced hyperglycemia 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 Recurrent UTI Overactive bladder Incontinence History of sarcoma myofibroblastic Cancer Hypertension DVT prophylaxis Hypothyroidism Abnormal urinalysis Hypertensive urgency Stroke-like symptoms Diabetes Diet controlled Hypothyroidism Hypertension Vertigo Surgical History Status post hysterectomy Status post bladder repair Status post colonoscopy Normal colonoscopy 2016 ([place]) History of bladder suspension procedure Abdominal tumor Operated on by gynecologic surgeon in [place] 2015 History of hysterectomy / BSO Family History Mother , AT AGE 73-DIABETES,THYROID DISEASE Diabetes Father , FATHER AT AGE 85-DIABETES Diabetes Social History Smoking and tobacco/nicotine status: never used tobacco/nicotine Alcohol intake: never Course 2 Vital Signs: Vital signs: Vital Signs Temperature 98.6 F 04/08/24 07:27 Pulse Rate 67 04/08/24 07:27 Respiratory Rate 14 04/08/24 07:27 Blood Pressure 148/92 04/08/24 07:27 Pulse Oximetry 91 04/08/24 07:27 Oxygen Delivery Me thod Room Air 04/08/24 07:27 MDM - Nausea/Vomiting/Diarrhea Medical Decision Making 74-year-old female presenting with vomiting and diarrhea. She was checked out at shift change. Blood pressure has been normal. Initially she was tachycardic, but responded to fluids. She is afebrile. CBC is normal. Lactic acid is 1.2. BMP is not remarkable. CT is remarkable for duodenitis versus duodenal ulcer. Spoke with surgery. Recommendations are medical management possible. Spoke with hospitalist who is willing to admit. She will receive fluids, PPI, supportive therapy. Lab Data 04/08/24 02:40 04/08/24 02:40 Radiology Impressions Abdomen/Pelvis CT 04/07/24 18:31 IMPRESSION: 1. Fluid tracking in the right retroperitoneal reflection and abutting the duodenal highly suspicious for duodenal pathology there is suggestion of moderate duodenal thickening as well. Pancreatitis could also have this appearance though duodenitis or duodenal ulcer is suspected. 2. Multiple prominent fluid-filled segments of small bowel in the lower abdomen raise concern for at least partial small bowel obstruction. Ileus could also have this appearance. 3. Other nonemergent findings above. ADDENDUM: 04/07/241917 THIS REPORT CONTAINS FINDINGS THAT MAY BE CRITICAL TO PATIENT CARE. The findings were verbally communicated via telephone conference with DREW SIDHU at 7:17 PM CDT on 04/07/2024. The findings were acknowledged and understood. Laboratory Results WBC 5.59 10^3/uL (3.29-11.43) 04/07/24 15:50 RBC 5.25 10^6/uL (3.85-5.65) 04/07/24 15:50 Hgb 14.90 g/dL (11.27-16.99) 04/07/24 15:50 Hct 46.5 % (36-47) 04/07/24 15:50 MCV 88.6 fl (85-98) 04/07/24 15:50 MCH 28.4 pg (27-33) 04/07/24 15:50 MCHC 32.0 g/dL (30-55) 04/07/24 15:50 RDW 13.7 % (12.1-15.1) 04/07/24 15:50 Plt Count 195 10^3/cmm (157-399) 04/07/24 15:50 MPV 10.3 fL (7.4-10.4) 04/07/24 15:50 Neut % (Auto) 80.8 % 04/07/24 15:50 Lymph % (Auto) 10.2 % 04/07/24 15:50 [place] % (Auto) 7.5 % 04/07/24 15:50 Eos % (Auto) 1.1 % 04/07/24 15:50 Baso % (Auto) 0.2 % 04/07/24 15:50 Neut # (Auto) 4.52 10^3/uL (1.8-7.7) 04/07/24 15:50 Lymph # (Auto) 0.6 10^3/uL (0.8-4.8) L 04/07/24 15:50 [place] # (Auto) 0.4 10^3/uL (0.2-0.9) 04/07/24 15:50 Eos # (Auto) 0.1 10^3/uL (0.0-0.8) 04/07/24 15:50 Baso # (Auto) 0.0 10^3/uL (0.0-0.1) 04/07/24 15:50 Nucleated RBC % (auto) 0 % 04/07/24 15:50 Nucleated RBCs # 0.0 /100WBC 04/07/24 15:50 Sodium 135 mmol/L (136-145) L 04/07/24 15:50 Potassium 4.2 mmol/L (3.5-5.1) 04/07/24 15:50 Chloride 96 mmol/L (98-107) L 04/07/24 15:50 Carbon Dioxide 24 mmol/L (22-29) 04/07/24 15:50 Anion Gap 19.2 (5-19) H 04/07/24 15:50 BUN 17 mg/dL (8-23) 04/07/24 15:50 Creatinine 0.6 mg/dL (0.5-0.9) 04/07/24 15:50 GFR Calculation Not Reportable 04/07/24 15:50 Glucose 135 mg/dL (65-115) H 04/07/24 15:50 Calculated Osmolality 284 mOsm/kg (285-295) L 04/07/24 15:50 Lactic Acid 1.2 mmol/L (0.5-2.2) 04/07/24 15:50 Calcium 9.3 mg/dL (8.5-10.5) 04/07/24 15:50 Total Bilirubin 1.0 mg/dL (0.15-1.2) 04/07/24 15:50 AST 11 U/L (0-32) 04/07/24 15:50 ALT 7 U/L (0-33) 04/07/24 15:50 Alkaline Phosphatase 96 U/L (35-105) 04/07/24 15:50 Total Protein 7.2 g/dL (6.6-8.7) 04/07/24 15:50 Albumin 4.2 g/dL (3.5-5.2) 04/07/24 15:50 Globulin 3.0 g/dL (1.3-4.6) 04/07/24 15:50 Lipase 20 U/L (13-60) 04/07/24 15:50 Procalcitonin 0.21 ng/mL (0-0.5) 04/07/24 15:50 Urine Color Yellow (Yellow) 04/07/24 20:12 Urine Appearance Cloudy (CLEAR) A 04/07/24 20:12 Urine pH 5.5 (5-7) 04/07/24 20:12 Ur Specific [place] 1.012 (1.005-1.030) 04/07/24 20:12 Urine Protein Negative (Negative) 04/07/24 20:12 Urine Glucose (UA) Negative (Normal) 04/07/24 20:12 Urine Ketones 2+ (Negative) H 04/07/24 20:12 Urine Blood Negative (Negative) 04/07/24 20:12 Urine Nitrate Positive (Negative) A 04/07/24 20:12 Urine Bilirubin Negative (Negative) 04/07/24 20:12 Urine Urobilinogen 1.0 mg/dL (Negative) 04/07/24 20:12 Ur Leukocyte Esterase 2+ (Negative) A 04/07/24 20:12 Urine RBC 0-2 /hpf (0-2) 04/07/24 20:12 Urine WBC 51-100 /hpf (0-5) H 04/07/24 20:12 Ur Squamous Epith Cells 0-5 /hpf (0-5) 04/07/24 20:12 Amorphous Sediment Not Reportable 04/07/24 20:12 Urine Bacteria 4+ /hpf (NONE) H 04/07/24 20:12 Hyaline Casts 1.65 /lpf 04/07/24 20:12 All radiology interpretation(s) finalized by discharge Discharge Plan Discharge Patient Disposition: Admitted As Inpatient Admit Provider: Jimmy Greer Clinical Impression: Duodenitis, Intractable nausea and vomiting, UTI (urinary tract infection) Condition: Stable Coding Level of Care Code ED Embedded Software Development Engineer for Nataliia Alcala
--- NOTE | 2024-04-07 18:31 | CTR_ITS ---
PROCEDURE INFORMATION: Exam: CT Abdomen And Pelvis Without Contrast Exam date and time: 04/07/2024 6:49 PM Age: 74 years old Clinical indication: Nausea and vomiting; Abdominal pain; Generalized; Prior surgery; Surgery date: 6+ months; Surgery type: Resection of fibromyoblastic sarcoma. Hysterectomy. Bladder suspension; Patient HX: Diffuse abd pain with n/v. 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 TECHNIQUE: Imaging protocol: Computed tomography of the abdomen and pelvis without contrast. Radiation optimization: All CT scans at this facility use at least one of these dose optimization techniques: automated exposure control; mA and/or kV adjustment per patient size (includes targeted exams where dose is matched to clinical indication); or iterative reconstruction. COMPARISON: CT chest abdpel w/*[id number] 12/25/2022 3:19 PM RADIATION DOSE METRICS: Total DLP (mGy-cm): 683.15 FINDINGS: Tubes, catheters and devices: Right sacral stimulator. Lungs: Bibasilar pulmonary calcified granulomata. Heart Liver: There is diffuse decreased attenuation of the hepatic parenchyma consistent with fatty infiltration. The liver is otherwise normal. There are no hepatic masses identified. Gallbladder and biliary ducts: The gallbladder is normal. There is no ductal dilatation. Pancreas: The pancreas is atrophic without obvious abnormality. Spleen: Spleen atrophic pancreas Adrenal glands: The adrenal glands are normal. Kidneys and ureters: Fullness of the left renal collecting system, stable compared to prior study. Nonobstructing small left lower pole renal calculi. No mirna hydronephrosis. Stomach and bowel: Multiple prominent fluid-filled segments of small bowel in the lower abdomen raise concern for at least partial small bowel obstruction. Distended stool-filled cecum. Moderate retained colonic stool. Appendix: Portions of a normal appendix are identified. No secondary evidence of acute appendicitis. Intraperitoneal space: Mild mesenteric edema. Small abdominopelvic free fluid. No pneumoperitoneum. Retroperitoneal space: Fluid tracking in the right retroperitoneal reflection and abutting the duodenal highly suspicious for duodenal pathology there is suggestion of moderate duodenal thickening as well. Vasculature: Atherosclerotic calcifications of the aorta are present. No aneurysm is identified. Lymph nodes: No enlarged lymph nodes are identified. Urinary bladder: The bladder is unremarkable. Reproductive: The uterus is absent. Bones/joints: No acute osseous abnormalities are seen. Soft tissues: The soft tissues are within normal limits. CT/CT abdomen pelvis wo con [id number] IMPRESSION: 1. Fluid tracking in the right retroperitoneal reflection and abutting the duodenal highly suspicious for duodenal pathology there is suggestion of moderate duodenal thickening as well. Pancreatitis could also have this appearance though duodenitis or duodenal ulcer is suspected. 2. Multiple prominent fluid-filled segments of small bowel in the lower abdomen raise concern for at least partial small bowel obstruction. Ileus could also have this appearance. 3. Other nonemergent findings above.
[2024-04-07 18:51] VITALS: BP 149/86; O2SAT 94
[2024-04-07 19:26] LABS: Lactic Sepsis W/Reflex 1.2 mmol/L (0.5-2.2)
[2024-04-07 20:22] LABS: Charge for UA Resulting for Rev
[2024-04-07 20:24] LABS: Bilirubin Urine Negative (Negative); Blood Urine Negative (Negative); Glucose Urine UA Negative (Normal); Ketones Urine 2+ (Negative); Leukocyte Esterase Urine 2+ (Negative); Nitrate Urine Positive (Negative); Protein Urine Negative (Negative); Specific Gravity, Urine 1.012 (1.005-1.030); Urine Appearance Cloudy (CLEAR); Urine Color Yellow (Yellow); pH Urine 5.5 (5-7)
[2024-04-07 20:26] VITALS: BP 136/91; PULSE 115; RESP 18; O2SAT 95
[2024-04-07] MEDS: pantoprazole 40 mg SDV 80 MG IVP (20:26)
[2024-04-07 20:27] LABS: Bacteria Urine 4+ /hpf; Hyaline Casts Urine 1.65 /lpf; RBC Urine 0-2 /hpf (0-2); Squamous Epithelial Cell Urine 0-5 /hpf (0-5); WBC Urine 51-100 /hpf (0-5)
--- NOTE | 2024-04-07 20:27 | PM.HP ---
Providers/Chief Complaint Primary Care Provider: Joseph Enrique DO Chief Complaint: [place] History of Present Illness Niru Bowser is a 74 year old female with a past medical history significant for Lindsay's palsy, hypothyroidism, hypertension, and multiple other comorbidities who presents to the emergency department with intractable nausea and vomiting. Patient reports she was in her usual state of health until about Wednesday. She notes that she ate some fruit which she thinks may have been bad. She started to get an upset stomach following this. Yesterday she developed nausea and vomiting. She endorses associated epigastric discomfort. She states she has not been able to hold out anything. She denies any hematic emesis. She does endorse associated watery diarrhea. Denies any blood or mucus in stool. She reports she had a prior small bowel obstruction that do not require surgery. She states symptoms are somewhat similar to that presentation. She denies fevers, chills, nausea or emesis. Denies any recent local travel outside of [facility]. Denies any other sick contacts. In the emergency department, patient was found to be tachycardic. Labs reveal hyponatremia and hypochloremia. Urinalysis was consistent with urinary tract infection. CT abdomen and pelvis revealed suspected duodenal pathology suggestive of duodenitis or duodenal ulcer. There were multiple prominent fluid-filled segments of the small bowel in the lower abdomen concerning for possible partial small bowel obstruction versus ileus. General surgery was consulted by ED and will follow. Patient reports a remote history of prior EGD. She denies prior known history of gastric or duodenal ulcers. Review of Systems Narrative: A complete review of systems was obtained and is negative except as stated in HPI. Medications/Allergies Home Medications Medication Instructions Recorded Confirmed Last Taken Type levothyroxine 50 mcg capsule 50 mcg PO DAILY@0500 10/13/19 08/18/23 02/26/21 History rosuvastatin 5 mg tablet (Crestor) 5 mg PO DAILY@0900 10/13/19 08/18/23 02/26/21 History aspirin 81 mg chewable tablet 81 mg PO DAILY 02/26/21 08/18/23 02/26/21 History 81mg + 325mg = 406mg cholecalciferol (vitamin D3) 25 25 mcg PO DAILY@2100 02/26/21 08/18/23 02/25/21 History mcg (1,000 unit) capsule (Vitamin D3) coenzyme Q10 50 mg tablet 50 mg PO DAILY@0900 02/26/21 08/18/23 02/26/21 History artifi.tears(hypromellose)(PF) 0.3 1 drp ophthalmic (eye) Q6H PRN dry 02/27/21 08/18/23 Unknown Rx % eye drops eyes 20 days #10 mL eye patch (Eye Pad) #1 ea 02/27/21 08/18/23 Unknown Rx meclizine 25 mg tablet 12.5 mg (1/2 x 25 mg) PO TID PRN 02/27/21 08/18/23 Unknown Rx vertigo #14 tabs metoprolol tartrate 50 mg tablet 100 mg (2 x 50 mg) PO BID@02/27/21 08/18/23 02/26/21 Rx days #60 tabs ondansetron HCl 4 mg tablet 4 mg PO DAILY #20 tabs 02/27/21 08/18/23 Unknown Rx (Zofran) white petrolatum-mineral oil 83 1 applic ophthalmic (eye) Q4H PRN 02/27/21 08/18/23 Unknown Rx %-15 % eye ointment (Artificial dry eye(s) 20 days #3.5 grams Eye Lubricant) azithromycin 250 mg tablet See Rx Instructions PO .COMPLEX #6 08/18/23 08/18/23 Unknown Rx tabs Allergies Allergy/AdvReac Type Severity Reaction Status Date / Time ciprofloxacin [From Cipro] Allergy Unknown Verified 08/18/23 18:48 codeine Allergy Unknown Verified 08/18/23 18:48 hydrochlorothiazide Allergy Unknown Verified 08/18/23 18:48 [From Hyzaar] losartan Allergy unknown Verified 08/18/23 18:48 meperidine [From Demerol] Allergy Unknown Verified 08/18/23 18:48 Opioids-Meperidine and Allergy unknown Verified 08/18/23 18:48 Related quinapril Allergy unknown Verified 08/18/23 18:48 tramadol Allergy Unknown Verified 08/18/23 18:48 PFSH Acute PFSH: Medical History (Updated 04/07/24 @ 21:07 by Jimmy Greer MD) TMJ arthralgia Thyroid Nodule Steroid-induced hyperglycemia 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 Recurrent UTI Overactive bladder Incontinence History of sarcoma myofibroblastic Cancer Hypertension DVT prophylaxis Hypothyroidism Abnormal urinalysis Hypertensive urgency Stroke-like symptoms Diabetes Diet controlled Hypothyroidism Hypertension Vertigo Surgical History Status post hysterectomy Status post bladder repair Status post colonoscopy Normal colonoscopy 2016 ([place]) History of bladder suspension procedure Abdominal tumor Operated on by gynecologic surgeon in [place] 2016 History of hysterectomy / BSO Family History Mother , AT AGE 73-DIABETES,THYROID DISEASE Diabetes Father , FATHER AT AGE 85-DIABETES Diabetes Social History Smoking and tobacco/nicotine status: never used tobacco/nicotine Alcohol intake: never Vitals/I&O/Wt Last Vital Signs Temp 98.3 F 04/07/24 15:27 Pulse 113 H 04/07/24 15:27 Resp 17 04/07/24 15:27 BP 149/86 04/07/24 18:51 Pulse Ox 94 04/07/24 18:51 O2 Del Method Room Air 04/07/24 15:27 Weight last 48 hrs Weight 771.561 kg Physical Exam Narrative: General: Patient is awake. Ill-appearing but pleasant. Head: Normocephalic. Atraumatic. EOM intact. Dry mucous membranes. Neck: No JVD. Cardiovascular: Regular rhythm. No gallops. No murmurs. No peripheral edema. Tachycardic Lungs: Clear to auscultation, no use of accessory muscles, no crackles or wheezes. Skin: No jaundice. No rashes. Abdomen: Normal bowel sounds. Abdomen is tender to palpation in epigastric regions. No rebound. No guarding. Extremities: No cyanosis or clubbing. Musculoskeletal: No swollen or erythematous joints. Neurological: Moves all 4 extremities. No myoclonus. Data 04/07/24 15:50 04/07/24 15:50 A&P Assessment and plan (1) Intractable nausea and vomiting: Intractable nausea and vomiting likely secondary to duodenal pathology versus ileus, pSBO or UTI Start IV fluids with normal saline Antiemetics as needed Start IV PPI Bowel rest, okay with limited clear liquids pending clinical course (2) Duodenitis: CT scan suspicious for duodenitis versus duodenal ulcer Start IV PPI Monitor blood counts Treat symptomatology as noted above May benefit from endoscopy as outpatient (3) Ileus: CT scan suspicious for ileus versus partial small bowel obstruction Bowel rest, hold off on NG tube for now General Surgery consulted Start IV fluids Antiemetics as needed IV analgesics as needed Serial abdominal exams (4) UTI (urinary tract infection): Urinalysis consistent with acute complicated urinary tract infection Urine to reflex to culture Prior urine cultures reviewed, no recent culture to guide therapy, pansensitive E. coli in 2020 Start ceftriaxone (5) Hyponatremia: Hypovolemic hyponatremia secondary to GI loss Start normal saline infusion Control underlying GI symptoms (6) Hypothyroidism: Continue Synthroid (7) Hypertension: Hydralazine as needed Plan DVT prophylaxis: Heparin Attestations Medical Necessity Statement*: Patient presents with intractable nausea and vomiting found to have underlying abdominal pathology with expected hospitalization after cross 2 midnights of IV fluids, symptomatology control, and supportive care. Coding Level of Care Code Acute Code for [facility] Fwd Diagnoses Intractable nausea and vomiting R11.2 Duodenitis K29.80 Ileus K56.7 UTI (urinary tract infection) N39.0 Hyponatremia E87.1 Hypothyroidism E03.9 Hypertension I10
[2024-04-07 20:29] LABS: Add Urine Culture? Yes
[2024-04-07] MEDS: sodium chloride 0.9% 1,000 ML 999 ML IV ×2 (20:34→22:34)
[2024-04-07 20:35] VITALS: BP 142/87; PULSE 111; RESP 18; O2SAT 95
[2024-04-07] MEDS: ondansetron 2 mg/ML SDV 2 mL 4 MG IVP (20:35)
[2024-04-07 21:22] LABS: Procalcitonin 0.21 ng/mL (0-0.5)
[2024-04-07 22:06] VITALS: BP 139/80; PULSE 102; RESP 15; TEMP 36.8; O2SAT 96
[2024-04-07 22:31] VITALS: BMI 33.0
[2024-04-07] MEDS: pantoprazole 40 mg SDV IVP (22:33)
[2024-04-07] MEDS: cefTRIAXone 1,000 mg SDV 1000 MG IVP (22:34)
[2024-04-07] MEDS: heparin 5,000 unit/mL INJ 1 mL 5000 UNIT SUBCUT (22:34)
[2024-04-07] MEDS: sodium chloride 0.9% 1,000 ML 75 ML IV (23:44)
[2024-04-08] VITALS: BP 130/77; PULSE 89; RESP 15; TEMP 36.6; O2SAT 91
[2024-04-08 03:56] LABS: Basophils % 0.3 %; Eosinophils # 0.1 10^3/uL (0.0-0.8); Eosinophils % 3.4 %; Hematocrit 39.8 % (36-47); Lymphocytes # 0.6 10^3/uL (0.8-4.8); Lymphocytes % 18.5 %; Mean Corpuscular HGB Conc 30.7 g/dL (30-55); Mean Corpuscular Hemoglobin 28.3 pg (27-33); Mean Corpuscular Volume 92.3 fl (85-98); Mean Platelet Volume 11.3 fL (7.4-10.4); Monocytes # 0.2 10^3/uL (0.2-0.9); Monocytes % 8.1 %; Neutrophils # 2.06 10^3/uL (1.8-7.7); Neutrophils % 69.4 %; Nucleated Red Blood Cells % 0 %; Platelet Count 155 10^3/cmm (157-399); Red Blood Count 4.31 10^6/uL (3.85-5.65); Red Cell Distribution Width 13.5 % (12.1-15.1); White Blood Count 2.97 10^3/uL (3.29-11.43)
[2024-04-08 04:00] VITALS: BP 138/78; PULSE 97; RESP 15; TEMP 36.6; O2SAT 96
[2024-04-08 04:30] LABS: Alanine Aminotransferase 6 U/L (0-33); Albumin Level 3.4 g/dL (3.5-5.2); Alkaline Phosphatase 78 U/L (35-105); Aspartate Amino Transferase 10 U/L (0-32); Blood Urea Nitrogen 13 mg/dL (8-23); Calcium 8.1 mg/dL (8.5-10.5); Carbon Dioxide 23 mmol/L (22-29); Chloride 108 mmol/L (98-107); Creatinine Clr Calc Pharmacy 58.5488; Globulin 2.7 g/dL (1.3-4.6); Glucose 99 mg/dL (65-115); Osmolality Calculated 294 mOsm/kg (285-295); Phosphorus 2.7 mg/dL (2.5-4.5); Sodium 142 mmol/L (136-145); Total Bilirubin 0.4 mg/dL (0.15-1.2); Total Protein 6.1 g/dL (6.6-8.7)
[2024-04-08 04:31] LABS: Anion Gap 14.9 (5-19); Potassium 3.9 mmol/L (3.5-5.1)
[2024-04-08 07:27] VITALS: BP 148/92; PULSE 67; RESP 14; TEMP 37; O2SAT 91
[2024-04-08] MEDS: heparin 5,000 unit/mL INJ 1 mL 5000 UNIT SUBCUT ×2 (08:36→20:55)
[2024-04-08] MEDS: pantoprazole 40 mg SDV IVP ×2 (08:36→20:56)
--- NOTE | 2024-04-08 10:29 | XRR_ITS ---
PROCEDURE INFORMATION: Exam: XR Abdomen Exam date and time: 04/08/2024 10:47 AM Age: 74 years old Clinical indication: Other: Possible small bowel obstruction; Prior surgery; Surgery date: 6+ months; Surgery type: Tumor resection. Hysterectomy. Bladder suspension. Implanted device in right hip area. ; Additional info: Sbo? TECHNIQUE: Imaging protocol: Radiologic exam of the abdomen. Views: Frontal supine view of the abdomen. 1 View. COMPARISON: CT abdomen pelvis con [id number] 04/07/2024 6:49 PM FINDINGS: Tubes, catheters and devices: A right sacral neurostimulator is noted. Gastrointestinal tract: Normal. No bowel dilation. Normal stool amount. Bones/joints: Unremarkable. XR/XR KUB portable [id number] IMPRESSION: No acute findings
[2024-04-08] MEDS: sodium chloride 0.9% 1,000 ML 75 ML IV (11:44)
[2024-04-08 11:54] VITALS: BP 144/91; PULSE 63; RESP 16; TEMP 36.4; O2SAT 95
--- NOTE | 2024-04-08 12:42 | PM.CONSULT ---
Providers/Reason For Consult Consulting Physician/Specialty*: Robin? Chavo. General surgery Reason for Consult*: Duodenitis Attending Physician: Tomas Pelayo MD Primary Care Provider: Joseph Enrique DO History of Present Illness History of Present Illness Niru Bowser is a 74 year old female who presented with intractable nausea and vomiting. She also complained of pain at the time of admission. CT scan done showed some stranding around the duodenum as well as some thickening. Medicine consulted as for management of duodenitis. Episode of SBO a few years ago. Past surgical history of a retroperitoneal sarcoma excision in 2015. Urology also implanted a bypass? In 2021. Medications/Allergies Home Medications Medication Instructions Recorded Confirmed Last Taken Type levothyroxine 50 mcg capsule 50 mcg PO DAILY@0500 10/13/19 04/07/24 04/06/24 History rosuvastatin 5 mg tablet (Crestor) 5 mg PO DAILY@0910/13/19 04/07/24 04/06/24 History cholecalciferol (vitamin D3) 25 25 mcg PO DAILY@2100 02/26/21 04/07/24 04/06/24 History mcg (1,000 unit) capsule (Vitamin D3) coenzyme Q10 50 mg tablet 50 mg PO DAILY@0902/26/21 04/07/24 04/06/24 History artifi.tears(hypromellose)(PF) 0.3 1 drp ophthalmic (eye) Q6H PRN dry 02/27/21 04/07/24 Unknown Rx % eye drops eyes 20 days #10 mL eye patch (Eye Pad) #1 ea 02/27/21 08/18/23 Unknown Rx meclizine 25 mg tablet 12.5 mg (1/2 x 25 mg) PO TID PRN 02/27/21 04/07/24 Unknown Rx vertigo #14 tabs metoprolol tartrate 50 mg tablet 100 mg (2 x 50 mg) PO BID@02/27/21 04/07/24 04/06/24 Rx days #60 tabs white petrolatum-mineral oil 83 1 applic ophthalmic (eye) Q4H PRN 02/27/21 04/07/24 04/06/24 Rx %-15 % eye ointment (Artificial dry eye(s) 20 days #3.5 grams Eye Lubricant) ondansetron HCl 4 mg tablet 4 mg PO DAILY PRN Nausea 04/07/24 04/07/24 04/06/24 History Allergies Allergy/AdvReac Type Severity Reaction Status Date / Time ciprofloxacin [From Cipro] Allergy Unknown Verified 08/18/23 18:48 codeine Allergy Unknown Verified 08/18/23 18:48 hydrochlorothiazide Allergy Unknown Verified 08/18/23 18:48 [From Hyzaar] losartan Allergy unknown Verified 08/18/23 18:48 meperidine [From Demerol] Allergy Unknown Verified 08/18/23 18:48 Opioids-Meperidine and Allergy unknown Verified 08/18/23 18:48 Related quinapril Allergy unknown Verified 08/18/23 18:48 tramadol Allergy Unknown Verified 08/18/23 18:48 Current Medications Generic Name Dose Route Start Last Admin Trade Name Freq PRN Reason Stop Dose Admin Ceftriaxone Sodium 1,000 mg 04/07/24 21:15 04/07/24 22:34 Ceftriaxone 1,000 Mg Sdv IVP 1,000 mg Q24H JOSE LUIS Administration Protocol Heparin Sodium (Porcine) 5,000 unit 04/07/24 22:06 04/08/24 08:36 Heparin 5,000 Unit/Ml Inj 1 Ml SUBCUT 5,000 unit 0900,2100 JOSE LUIS Administration Sodium Chloride 1,000 mls @ 75 mls/hr 04/07/24 22:06 04/08/24 11:44 Sodium Chloride 0.9% IV 75 mls/hr .[id number] JOSE LUIS Administration Pantoprazole Sodium 40 mg 04/07/24 22:06 04/08/24 08:36 Pantoprazole 40 Mg Sdv IVP 40 mg 0900,2100 JOSE LUIS Administration PFSH Acute PFSH: Medical History (Updated 04/08/24 @ 00:39 by Ivan Smith DO) TMJ arthralgia Thyroid Nodule Steroid-induced hyperglycemia 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 Recurrent UTI Overactive bladder Incontinence History of sarcoma myofibroblastic Cancer Hypertension DVT prophylaxis Hypothyroidism Abnormal urinalysis Hypertensive urgency Stroke-like symptoms Diabetes Diet controlled Hypothyroidism Hypertension Vertigo Surgical History Status post hysterectomy Status post bladder repair Status post colonoscopy Normal colonoscopy 2015 ([place]) History of bladder suspension procedure Abdominal tumor Operated on by gynecologic surgeon in [place] 2015 History of hysterectomy / BSO Family History Mother , AT AGE 73-DIABETES,THYROID DISEASE Diabetes Father , FATHER AT AGE 85-DIABETES Diabetes Social History Smoking and tobacco/nicotine status: never used tobacco/nicotine Alcohol intake: never Vitals/I&O/Wt Last Vital Signs Temp 97.5 F L 04/08/24 11:54 Pulse 63 04/08/24 11:54 Resp 16 04/08/24 11:54 BP 144/91 04/08/24 11:54 Pulse Ox 95 04/08/24 11:54 O2 Del Method Room Air 04/08/24 11:54 04/07/24 04/08/24 04/08/24 22:59 06:59 14:59 Intake Total 1000 / 1000 1000 / 2000 1020 / 1020 Balance 1000 / 1000 1000 / 2000 1020 / 1020 Weight last 48 hrs Weight 176 lb Weight 180 lb 9.6 oz Weight 1701 lb Physical Exam Narrative: Chest: Unlabored breathing room air. No lymphadenopathy. Heart: Regular rate and rhythm. Abdomen: Soft, tender epigastrium, distended. No masses or lymphadenopathy. Data 04/08/24 02:40 04/08/24 02:40 A&P Assessment and plan (1) Duodenitis: Plan 74-year-old female whom we were consulted for management of duodenitis. At this point recommend NG tube for decompression, PPIs, and expectant management. We can consider outpatient EGD. I reviewed the CT scan and I do not think she has a small bowel obstruction at this point. She does have a lot of stool burden in her colon but I do not think this is causing her current symptoms. Coding Level of Care Code Acute Code for [facility] Fwd Diagnoses Duodenitis K29.80
--- NOTE | 2024-04-08 13:08 | P.PN_ITS ---
Subjective 2 Subjective: Patient was seen this morning, she is sitting up in a chair, no nausea, no vomiting, denies any fevers, no chills, she tells me that she continues to have abdominal pain, denies any diarrhea, is not passing gas from below, although mild Vitals/I&O/Wt Last Vital Signs Temp 97.5 F L 04/08/24 11:54 Pulse 63 04/08/24 11:54 Resp 16 04/08/24 11:54 BP 144/91 04/08/24 11:54 Pulse Ox 95 04/08/24 11:54 O2 Del Method Room Air 04/08/24 11:54 04/07/24 04/08/24 04/08/24 22:59 06:59 14:59 Intake Total 1000 / 1000 1000 / 1999 1020 / 1020 Balance 1000 / 1000 1000 / 1999 1020 / 1020 Weight last 48 hrs Weight 79.832 kg Weight 81.919 kg Weight 771.561 kg Physical Exam 2 Const: COMMON NORMALS: no acute distress and patient oriented x3 Resp: COMMON NORMALS: normal respiratory effort, No retractions, No use of accessory muscles and clear to auscultation bilaterally AUSCULTATION: clear to auscultation bilaterally Cardio: COMMON NORMALS: regular rate, regular rhythm, S1 normal heart sound present and S2 normal heart sound present RATE: regular rate RHYTHM: r egular rhythm HEART SOUNDS: S1 normal heart sound present and S2 normal heart sound present GI: OTHER: Abdomen soft, slightly distended, scattered bowel sounds, no guarding, no rebound, no rigidity, nonspecific diffuse tenderness Extremity: COMMON NORMALS: no pedal edema Neuro: COMMON NORMALS: patient oriented x3 Psych: COMMON NORMALS: mental status grossly normal Data 04/08/24 02:40 04/08/24 02:40 A&P Assessment and plan (1) Intractable nausea and vomiting: Intractable nausea and vomiting likely secondary to duodenal pathology versus ileus, partial SBO or ileus Start IV fluids with normal saline Antiemetics as needed Continue Protonix 40 IV twice daily, Carafate ? Place NG tube -N.p.o. (2) Duodenitis: CT scan suspicious for duodenitis versus duodenal ulcer Start IV PPI, Carafate Monitor blood counts Treat symptomatology as noted above May benefit from endoscopy as outpatient (3) Ileus: CT scan suspicious for ileus versus partial small bowel obstruction Bowel rest General Surgery consulted Start IV fluids Antiemetics as needed IV analgesics as needed Serial abdominal exams (4) UTI (urinary tract infection): Urinalysis consistent with acute complicated urinary tract infection Urine to reflex to culture Prior urine cultures reviewed, no recent culture to guide therapy, pansensitive E. coli in 2020 Start ceftriaxone (5) Hyponatremia: Hypovolemic hyponatremia secondary to GI loss Start normal saline infusion Control underlying GI symptoms (6) Hypothyroidism: Continue Synthroid (7) Hypertension: Hydralazine as needed Plan DVT prophylaxis: Heparin Full code Attestations 2 Medical Necessity Statement*: Patient requires hospitalization for UTI, colitis, partial small bowel obstruction Diagnoses Intractable nausea and vomiting R11.2 Duodenitis K29.80 Ileus K56.7 UTI (urinary tract infection) N39.0 Hyponatremia E87.1 Hypothyroidism E03.9 Hypertension I10
--- OUTSIDE RECORDS SUMMARY | 2024-04-08 13:51 | XMS_ITS ---
Author Name Unknown Organization [facility] Address [address] [place] [address] Care Team Providers Care On Site Soil Evaluator Name Role Phone Joseph Enrique Primary Care Provider DELVIN Escalera Unavailable [phone] Allergies Allergen (clinical drug ingredient) Drug/Non Drug Allergy documented on EMR Reaction Allergy Type Onset Date Status quinapril Accupril Unknown Drug Allergy Active ciprofloxacin Ciprofloxacin HCl nausea and vomiting Drug Allergy Active meperidine Demerol Unknown Drug Allergy Active doxycycline Doxycycline Hyclate nausea and vomiting Drug Allergy Active hydrochlorothiazide / losartan Hyzaar Unknown Drug Allergy Active lisinopril Lisinopril Unknown Drug Allergy Activ e Oxybutynin Unknown Drug Allergy Active tramadol Ultram Unknown Drug Allergy Active codeine Codeine allergy Drug Allergy Active losartan Losartan Unknown Drug Allergy Active tramadol Tramadol Unknown Drug Allergy Active Results Component Value Reference Range Notes Urinalysis, Routine Reviewed date:11/20/2023 05:38:44 PM Interpretation: Performing Lab: Notes/Report: Urine-Color yellow Appearance cloudy Glucose - Bilirubin - Ketones - Specific [place] 1.015 Occult Blood trace pH 6.0 Urine Protein trace Urobilinogen,Semi-Qn - Nitrite, Urine POS WBC Esterase 3+ REASON FOR VISIT 3-4 MO UA/PVR Medications Medication SIG (Take, Route, Frequency, Duration) Notes Start Date End Date Status amLODIPine Besylate 5 MG 1 tablet Orally Once a day Active Bactrim DS 800-160 MG 1 tablet Orally Twice a day for 7 days Not-Taking Ceftin *Reorder from [facility] for eRx and Interaction Alerts* Not-Taking Crestor 5 MG 1 tablet Orally Once a day Active Meclizine HCl 25 MG 1 tablet as needed Orally every 12 hrs Active Norvasc Active Metoprolol Tartrate 100 MG 1 tablet with food Orally Twice a day Active Levothyroxine Sodium 50 MCG 1 tablet in the morning on an empty stomach Orally Once a day Active metFORMIN HCl *Pick strength-form from [employer] for eRX* Active Problems Problem Type SNOMED Code ICD Code Onset Dates Problem Status W/U Status Risk Notes Problem OAB (overactive bladder) (N32.81) Active confirmed Problem Recurrent urinary tract infection (127091267) Recurrent UTI (N39.0) Active confirmed Vital Signs Temperature 98.1 degrees Fahrenheit 10/21/19 24 Blood pressure systolic 171 mm Hg 10/21/19 24 Blood pressure diastolic 84 mm Hg 024 Heart Rate 67 /min 10/21/2023 Height 62 in 10/21/2023 Weight 180 lbs 10/21/2023 BMI 32.92 kg/m2 10/21/2023 Height-cm 157.48 cm 10/21/2023 Weight-kg 81.65 kg 10/21/2023 Procedures Procedure Date Ordered Date Performed Result Body Sit e Bladder Scan 10/21/2023 N/A Encounters Encounter Location Date Provider Diagnosis [facility], [facility] [address] [place] [address] 10/21/2023 DELVIN BAUTISTA Fecal incontinence R15.9 ; OAB (overactive bladder) N32.81 and Recurrent UTI N39.0 Assessments Encounter Date Diagnosis (ICD Code) Assessment Notes Treat ment Notes Treatment Clinical Notes 10/21/2023 Fecal incontinence (ICD-10 - R15.9) 10/21/2023 OAB (overactive bladder) (ICD-10 - N32.81) 10/21/2023 Recurrent UTI (ICD-10 - N39.0) 10/21/2023 Other PVR 12 ml Plan Of Treatment Treatment Notes Assessment Notes Other PVR 12 ml Pending Test Test Name Order Date Bladder Scan 10/21/2023 Next Appt Details Follow Up: 6 Months, Reason: Provider Name:LOLA GRIDER, 04/26/2024 11:20:00 AM, [address] [place], [address], Progress Notes * Niru BOWSER LDOB: [birth year] (73 yo F)Acc No.[id number]:10/21/2023 Progress Notes Patient:Niru MCCONNELL Provider:?DELVIN BAUTISTA MD :1950???Age:73 Y???Sex:Female D ate:10/21/2023 Address:[address] [place], [place] [address], [id number] Pcp:Joseph nErique Subjective: * Chief Complaints: * ???1. 3-4 MO UA/PVR. * HPI: ???Migrated HPI:? Ms. Bowser is a 73-yo female with urinary and fecal incontinence. She has a h/o sarcoma with radiation therapy in 2015, which caused her to have worsened urinary symptoms, as well as fecal incontinence and constipation. She has a h/o UTI's. She has a h/o Lindsay's Palsy. She had a bowel obstruction in 2020. She is allergic to Oxybutynin, which she has trialed in the past. She wears a CPAP at night. She underwent [employer] PNE trial on 07/07/22 and full implant on 07/28/22 and noted improvement in fecal incontinence more than?urinary incontinence. CT on 12/25/22 revealed a R renal cyst and a nonobstructing L renal stone. She presented to clinic on 05/20/23 w/ increased frequency and malodorous urine. PCR + for E Coli, Pseudomonas, nad Citerobacter, treated?with Levaquin. She was seen on 06/14/23, and felt better since abx. She c/o bothersome bowel problems with increased fecal urgency and diarrhea. She reported increased stress due to her grandson being in his recent accidental shooting, and she states they do not know if he is going to make it .? The patient presents today for 3-4 month f/u with UA/PVR. She reports her interstim is working well for her bowels and minimally for her urinary incontinence. She is on a strict diet and notes she drinks a lot of water. She has lost down to 170lbs.?UA appears infected, however, she denies any symptoms. She states she takes Azo PRN.. PVR 12. * ROS:?General / Constitutional:?Patient denies?chills, fever, weight loss, good appetite.?ENT:?Patient denies?nasal congestionrhinorrhea or epistaxis.?Respiratory:?Patient denies?chronic cough, hemoptysis.?Cardiovascular:?Patient denies?substernal chest pain or palpitations, dyspnea with exertion.?Gastrointestinal:?Patient denies?constipation, rectal bleeding, weight loss, abdominal pain.?Hematology:?Patient denies?easy bruising, bleeding problems.?Genitourinary:?Patient denies?Documented in HPI.?Musculoskeletal:?Patient denies?arthritis / arthralgia, joint stiffness or swelling or redness.?Neurologic:?Patient denies?seizures, headache, difficulty speaking.?Psychiatric:?Patient denies?depressed mood, suicidal thoughts.? * Medical History:?Hypertensio n, Vertigo, Sleep apnea, Arthritis, Bladder infections, Myofiberblasts sarcoma, Diabetes mellitus. * Surgical History:?hysterecto my , bladder tie up , neuroma nerve left foot , [employer] sacral neuromodulater implant 07/28/22. * Hospitalization/Major Diagno stic Procedure:?Lindsay's Palsy , Intestinal blockage , pneumonia , hypertension . * Family History:?Father: dece ased, alzheimer's dementia.?Mother: , pneumonia.? * Medications:?Taking Norvasc , Taking Metoprolol Tartrate 100 MG Tablet 1 tablet with food Orally Twice a day , Taking Levothyroxine Sodium 50 MCG Tablet 1 tablet in the morning on an empty stomach Orally Once a day , Taking metFORMIN HCl , Notes to Pharmacist: *Pick strength-form from [employer] for eRX*, Taking Crestor 5 MG Tablet 1 tablet Orally Once a day , Taking Meclizine HCl 25 MG Tablet 1 tablet as needed Orally every 12 hrs , Taking amLODIPine Besylate 5 MG Tablet 1 tablet Orally Once a day , Not-Taking Bactrim DS 800-160 MG Tablet 1 tablet Orally Twice a day , Not-Taking Ceftin , Notes to Pharmacist: *Reorder from [facility] for eRx and Interaction Alerts*, Medication List reviewed and reconciled with the patient * Allergies:?Codeine: allergy, Accupril, Doxycycline Hyclate: nausea and vomiting, Ciprofloxacin HCl: nausea and vomiting, Demerol, Tramadol, Losartan, Ultram, Hyzaar, Oxybutynin, Lisinopril. Objective: * Vitals:?BP:171/84mm Hg, HR:6 7/min, Temp:98.1F, Wt:180lbs, Wt-k.65 kg, Ht: 62 in, Ht-cm: 157.48 cm, BMI:32.92Index, Body Surface Area: 1.89. * Examination: ???General Examination: ?General appearance:?alert, pleasant, well-nourished and in no acute distress.?Head:?normocephalic, atraumatic.?Eyes:?conjunctiva clear, normal.?Neck / thyroid:?Neck is supple, no palpable cervical lymphadenopathy.?Skin:?with no suspicious skin lesions, normal skin turgor.?Heart:?regular rate and rhythm without murmurs, gallops, clicks or rubs.?Lungs:?clear to auscultation bilaterally.?Abdomen:?soft, nontender with normoactive bowel sounds in all four quadrants, No palpable organomegaly. No peritoneal signs. No shifting dullness..?Musculoskeletal:?No clubbing, cyanosis, or edema. No calf tenderness. Free range of motion in all extremities..?Neurologic:?No focal deficits, muscle strength 5/5 in all extremities..?Psych:?cooperative with exam.? Assessment: * Assessment: 1.?OAB (overactive bladder) - N32.81 (Primary)?2.?Fecal incontinence - R15.9?3.?Recurrent UTI - N39.0? 73-yo female witih fecal inc ontence, OAB and recurrent UTIs. Interstim is helping with fecal incontinence but not well for her OAB symptoms. PVR 12cc. The patient is doing well from a urological standpoint. RTC to see Laura Coyne APRN, in 6 months with UA/PVR. RTC or call sooner with any concerns. The patient voices understanding and agrees with the plan. All of her questions were answered to her satisfaction. Plan: - RTC to see Laura Coyne APRN, in 6 months with UA/PVR - RTC or call sooner with any concerns IFatimah Scribe, am scribing for, and in the presence of, Dr. Bautista. I, Dr. Delvin Bautista, personally performed the services prescribed in this documentation, as scribed by Fatimah Suazo, in my presence, and it is both accurate and complete. Plan: * Treatment: * Labs:? * ?Lab: Urinalysis, Routin e (Collection Date & Time - 10/21/2023) ? Value Reference Range ?Urine-Color yellow * ?Appearance cloudy * ?Glucose - * ?Bilirubin - * ?Ketones - * ?Specific Carson 1.015 * ?Occult Blood trace * ?pH 6.0 * ?Urine Protein trace * ?Urobilinogen,Semi-Qn - * ?Nitrite, Urine POS * ?WBC Esterase 3+ * Sarah Bashir 10/21/2023 01:43:51 PM CDT > Foul smelling urine * Procedure Orders:? * ?Procedure: Bladder Scan * Procedure Codes:?80037 URINA LYSIS, AUTO, W/O SCOPE, 61551 US URINE CAPACITY MEASURE * Follow Up:?6 Months * Billing Information: * Visit Code:? 94330 Office Visit, Est Pt., Level 3. * Procedure Codes:? 72146 URINALYSIS, AUTO, W/O SCOPE. 35920 US URINE CAPACITY MEASURE. * Sign off status: Completed true * Provider:VIDYA BAUTISTA MD Date:?10/07 Generated for Printi ng/Faxing/eTransmitting on:?04/08/2024 01:51 PM CDT History and Physical Notes * Examination Category Sub-Category Detail Notes General Examination General appearance: alert, p leasant, well-nourished and in no acute distress Head: normocephalic, atrau matic Eyes: conjunctiva clear, n ormal Neck / thyroid: Neck is supple, no p alpable cervical lymphadenopathy Heart: regular rate and rhy thm without murmurs, gallops, clicks or rubs Lungs: clear to auscultatio n bilaterally Abdomen: soft, nontender with normoactive bowel sounds in all four quadrants, No palpable organomegaly. No peritoneal signs. No shifting dullness. Neurologic: No focal deficits, m uscle strength 5/5 in all extremities. Skin: with no suspicious s kin lesions, normal skin turgor Musculoskeletal: No clubbing, cyanosi s, or edema. No calf tenderness. Free range of motion in all extremities. Psych: cooperative with exa m
--- OUTSIDE RECORDS SUMMARY | 2024-04-08 13:51 | XMS_ITS | Patient Health Record ---
Author Name Unknown Organization [facility] Address [address] [place] [address] Care Team Providers Care Unarmed Security Guard Name Role Phone Joseph Enrique Primary Care Provider DELVIN Escalera Unavailable [phone] RISA CORDOVA Unavailable [phone] Allergies Allergen (clinical drug ingredient) Drug/Non Drug [...] Value Reference Range Notes Urinalysis, Routine Reviewed date:06/14/2023 01:10:19 PM Interpretation: Performing Lab: Notes/Report: Urine-Color yellow Appearance clear Glucose - Bilirubin - Ketones - Specific [place] 1.010 Occult Blood - pH 6.5 Urine Protein - Urobilinogen,Semi-Qn - Nitrite, Urine - WBC Esterase 2+ Urinalysis, Routine Reviewed date:11/20/2023 05:38:44 PM Interpretation: Performing Lab: Notes/Report: Urine-Color yellow Appearance cloudy Glucose - Bilirubin - Ketones - Specific [place] 1.015 Occult Blood trace pH 6.0 Urine Protein trace Urobilinogen,Semi-Qn - Nitrite, Urine POS WBC Esterase 3+ Urinalysis, Routine Reviewed date:05/20/2023 04:12:47 PM Interpretation: Performing Lab: Notes/Report: Urine-Color yellow Appearance slightly cloudy Glucose - Bilirubin 1+ Ketones - Specific [place] 1.020 Occult Blood - pH 6.0 Urine Protein - Urobilinogen,Semi-Qn - Nitrite, Urine positive WBC Esterase 1+ Urinalysis Gross Exam + Reason For Referral No Information Medications Medication SIG (Take, Route, Frequency, Duration) Notes Start Date End Date Status amLODIPine Besylate 5 MG 1 tablet Orally Once a day Active Bactrim DS 800-160 MG 1 tablet Orally Twice a day for 7 days Not-Taking Ceftin *Reorder from [employer] for eRx and Interaction Alerts* Not-Taking Norvasc Active Metoprolol Tartrate 100 MG 1 tablet with food Orally Twice a day Active Crestor 5 MG 1 tablet Orally Once a day Active Meclizine HCl 25 MG 1 tablet as needed Orally every 12 hrs Active Levothyroxine Sodium 50 MCG 1 tablet in the morning on an empty stomach Orally Once a day Active metFORMIN HCl *Pick strength-form from [employer] for eRX* Active Problems Problem Type SNOMED Code ICD Code Onset Dates Problem Status W/U Status Risk Notes Problem 379755746 Urinary incontinence, unspecified type (R32) Active confirmed Problem 49733412 Urge incontinenc e (N39.41) Active confirmed Problem 23191427 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 Problem 82423918 Fecal incontinen ce (R15.9) Active confirmed Problem 33182911 Constipation (K59.00) Active confirmed Problem 52107446 Recurrent UTI (urinary tract infection) (N39.0) Active confirmed Problem Sacral neurostimulator in situ (Z96.82) Active confirmed Problem OAB (overactive bladder) (N32.81) Active confirmed Problem Recurrent urinary tract infection (640551804) Recurrent UTI (N39.0) Active confirmed Vital Signs Heart Rate 67 /min 10/21/2023 Temperature 98.1 degrees Fahrenheit 10/21/2023 Height-cm 157.48 cm 10/21/2023 Blood pressure diastolic 84 mm Hg 10/21/2023 Weight-kg 81.65 kg 10/21/2023 Height 62 in 10/21/2023 Blood pressure systolic 171 mm Hg 10/21/2023 Weight 180 lbs 10/21/2023 BMI 32.92 kg/m2 10/21/2023 Procedures Procedure Date Ordered Date Performed Result Body Sit e Bladder Scan 06/14/2023 N/A Bladder Scan 10/21/2023 N/A Encounters Encounter Location Date Provider Diagnosis [facility] [address] [place] [address] 05/24/2023 RISA CORDOVA [facility] [address] [place] [address] 05/20/2023 RISA CORDOVA Urge incontinence N3 9.41 ; Acute UTI N39.0 ; Fecal incontinence R15.9 ; Urgency of micturition R39.15 ; Frequency of micturition R35.0 ; Constipation K59.00 ; 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 and Sacral neurostimulator in situ Z96.82 [facility] [address] [facility] [address] [facility] [place] [address] 06/14/2023 RISA CORDOVA Recent urinary tract infection Z87.440 ; Fecal incontinence R15.9 ; Urge incontinence N39.41 ; Urgency of micturition R39.15 ; Frequency of micturition R35.0 ; Bowel habit changes R19.4 and Sacral neurostimulator in situ Z96.82 [facility] [address] [place] [address] 10/21/2023 DELVIN BAUTISTA Fecal incontinence R 15.9 ; OAB (overactive bladder) N32.81 and Recurrent UTI N39.0 Assessments Encounter Date Diagnosis (ICD Code) Assessment Notes Treat ment Notes Treatment Clinical Notes 05/20/2023 Urge incontinence (ICD-10 - N39.41) 05/20/2023 Acute UTI (ICD-10 - N39.0) 06/14/2023 Fecal incontinence (ICD-10 - R15.9) 06/14/2023 Recent urinary tract infection (ICD-10 - Z87.440) 10/21/2023 Fecal incontinence (ICD-10 - R15.9) 10/21/2023 OAB (overactive bladder) (ICD-10 - N32.81) 10/21/2023 Recurrent UTI (ICD-1 0 - N39.0) 06/14/2023 Urge incontinence (ICD-10 - N39.41) 05/20/2023 Fecal incontinence (ICD-10 - R15.9) 05/20/2023 Urgency of micturition (ICD-10 - R39.15) 06/14/2023 Urgency of micturition (ICD-10 - R39.15) 06/14/2023 Frequency of micturition (ICD-10 - R35.0) 05/20/2023 Frequency of micturition (ICD-10 - R35.0) 06/14/2023 Bowel habit changes (ICD-10 - R19.4) 05/20/2023 Constipation (ICD-10 - K59.00) 06/14/2023 Sacral neurostimulator in situ (ICD-10 - Z96.82) 05/20/2023 Neoplasm of uncertai n behavior of connective and other soft tissue (ICD-10 - D48.1) 05/20/2023 Sacral neurostimulator in situ (ICD-10 - Z96.82) 05/20/2023 Other UA appears infected, PVR 40 ml. Send for PCR. Called patient's pharmacy to confirm what antibiotic she filled, and they verified that she filled Cefuroxime 500mg BID x 7 days on Wednesday, but the original Rx was from June [address] Bautista with 2 refills. Instructed her to continue this medication. I will call with PCR results and adjust as necessary at that time. Recommended that she increase water and avoid bladder irritants. She is unhappy with her overactivity in bladder and bowels with [employer] and was not able to change her settings effectively speaking over the phone with the rep in the past. She will RTC in a few weeks to recheck the UA and make sure this infection has cleared and will try to facilitate the [employer] rep being here the same day to try and adjust her device settings. All questions that were asked were answered. Patient is satisfied with plan of care. PVR 40ml 06/14/2023 Other PVR 0 ml Patient's UA stable, PVR 0 mL. She denies any acute UTI symptoms today. She continues to have bothersome bowel issues ranging from constipation to fecal urgency and diarrhea. She does not have any kind of follow-up for her previous radiation team, so I have recommended she discuss with her PCP and see if a GI referral may be appropriate. She still has some questions about the settings of her [employer] device, so I will have Hattie Starks rep contact her. Otherwise she will return to clinic in 3 to 4 months for follow-up. All questions that were asked were answered. Patient is satisfied with plan of care. 10/21/2023 Other PVR 12 ml Plan Of Treatment Pending Test Test Name Order Date Basic Metabolic Panel [id number] 07/20/2022 CBC w\ Auto Diff [id number] 07/20/2022 US Renal w/bladder-[id number] 12/07/2022 Electrocardiogram 12 Lead Tracing-[id number] 06/24/2022 Bladder Scan 10/21/2023 Bladder Scan 06/14/2023 Next Appt Details Provider Name:LOLA AMSO NS, 04/26/2024 11:20:00 AM, [address] [place], [address], Insurance Providers Payer Name Payer Address Payer Phone Subscriber Number Group Number Insured Name Patient Relationship to Insured Coverage Start Date Coverage End Date [place] [address] [place], [place] [id number] Niru Bowser Self - patient is the insured Medical (General) History Medical History History ICD Code hypertension vertigo sleep apnea Arthritis bladder infections Myofiberblasts sarcoma diabetes mellitus Surgical History Surgery Date(Month/Year) hysterectomy bladder tie up neuroma nerve left foot [employer] sacral neuromodulater implant Hospitalization History Reason Date(Month/Year) hypertension pneumonia Intestinal blockage Lindsay's Palsy
--- OUTSIDE RECORDS SUMMARY | 2024-04-08 13:51 | XMS_ITS ---
Author Name Unknown Organization [facility] ALLERGIES AND ADVERSE REACTIONS No information ASSESSMENT No information CHIEF COMPLAINT No information Vital Signs Bpsitting Date Temperature Weight Height Spo2 Respiration Bmi Ti merecorded Pulse 144/88 023 12:00: 00 AM 98.2 189,0.00 5,1 98 18 35.7 14:10 79 136/72 008 12:00: 00 AM 98.5 192,0.00 null null null null 14:00 80 148/90 007 12:00: 00 AM 97.6 200,0.00 5,2 null null 36.58 14:00 86 128/90 2022 12:00: 00 AM 97.1 182,16.0 0 5,1 98 20 34.6 16:39 65 148/92 009 12:00: 00 AM 97.7 205,0.00 null 98 null null 14:00 86 160/90 020 12:00: 00 AM 98.2 199,0.00 5,2 97 null 36.39 14:00 83 121/72 009 12:00: 00 AM 98.2 197,0.00 null null null null 14:00 96 148/98 022 12:00: 00 AM 97.7 199,0.00 5,2 97 null 36.39 14:00 53 144/82 09/16/19 19 12:00: 00 AM 98.1 202,12.8 0 5,3 96 null 35.64 14:00 91 128/78 009 12:00: 00 AM 98 198,0.00 5,2 null null 36.21 14:00 100 125/77 009 12:00: 00 AM 98.1 196,0.00 null null null null 14:00 78 128/84 2006 12:00: 00 AM 99 197,0.00 null null null null 14:00 90 158/96 024 12:00: 00 AM 98 174,6.00 5,1 98 18 32.9 16:16 83 121/80 024 12:00: 00 AM 97.1 172,16.0 0 5,1 97 null 32.7 12:35 60 132/70 008 12:00: 00 AM 98.2 190,0.00 null null null null 14:00 72 162/94 08/11/19 23 12:00: 00 AM 97.4 193,0.00 5,2 98 20 35.3 14:00 58 142/82 010 12:00: 00 AM 98.6 207,0.00 5,3 96 null 36.66 14:00 100 80/60 024 12:00: 00 AM 97.4 141,0.00 5,6 null null 22.41 16:11 60 142/84 2017 12:00: 00 AM 98.2 202,0.00 5,3 96 null 35.5 14:00 99 146/90 022 12:00: 00 AM 97.3 196,0.00 5,2 95 19 35.84 14:00 61 null 022 12:00: 00 AM 97.8 195,0.00 5,2 96 null 35.66 06:04 66 122/80 008 12:00: 00 AM 101.3 196,0.00 null null null null 14:00 78 136/98 01/12/20 08 12:00: 00 AM 99.1 197,0.00 5,2 96 null 36.03 14:00 114 115/78 008 12:00: 00 AM 98.3 199,0.00 null null null null 14:00 96 140/80 022 12:00: 00 AM null 195,0.00 5,2 97 17 35.66 14:00 66 130/90 024 12:00: 00 AM null 179,4.00 5,1 94 20 33.9 22:26 68 140/80 019 12:00: 00 AM 98.2 202,0.00 5,4 98 null 34.67 14:00 97 124/78 008 12:00: 00 AM 98.4 197,0.00 null null null null 14:00 88 120/72 008 12:00: 00 AM 98.2 192,0.00 null null null null 14:00 84 null 023 12:00: 00 AM 97.8 193,0.00 5,2 96 null 35.3 06:04 96 132/84 2007 12:00: 00 AM 98.3 193,0.00 null null null null 14:00 90 150/82 12/16/19 22 12:00: 00 AM null 205,0.00 5,2 7 18 37.49 14:00 73 146/90 10/13/19 24 12:00: 00 AM null 177,16.0 0 5,1 97 18 33.6 12:52 77 152/90 023 12:00: 00 AM 97.6 186,16.0 0 5,1 98 18 35.3 09:43 82 154/86 022 12:00: 00 AM null 204,0.00 5,2 97 17 37.31 14:00 null OBJECTIVE DATA No information PHYSICAL EXAMINATION No information TREATMENT PLAN No information PROBLEMS No information RESULTS No information REVIEW OF SYSTEMS No information SUBJECTIVE DATA No information MEDICATIONS No information
--- OUTSIDE RECORDS SUMMARY | 2024-04-08 13:51 | XMS_ITS ---
Author Name Unknown Organization [facility] Address [address] [place] [address] Care Team Providers Care Wallpaper Embosser Helper Name Role Phone Joseph Enrique DO Primary Care Provider Unavail able RaphaelMichael hassanel Unavailable [phone] Dhruv Bautista Unavailable [phone] REASON FOR VISIT 4-6 wks w/ ua/pvr Encounters Encounter Location Date Provider Diagnosis [facility] [address] [place] [address] 04/22/2023 Dhruv Bautista Plan Of Treatment No Information Progress Notes * Niru BOWSER LDOB: [birth year] (74 yo F)Acc No.[id number]:04/22/2023 Progress Notes Patient:?Niru BOWSER Provider:?Dhruv Bautista MD :1950???Age:73 Y???Sex:Female D ate:04/22/2023 Address:[address] [place], [place] [address] Pcp:Joseph Enrique DO Subjective: * Chief Complaints: * ???1. 4-6 wks w/ ua/pvr. * Medical History:? Objective: * Vitals:? Assessment: Plan: * Treatment: * Billing Information: * Visit Code:? * Procedure Codes:? * Electronic signature of Aust in MD Michele on 04/08/2024 at 01:51 PM CDT Sign off status: Pending * Provider:?Dhruv Bautista MD Date:? Generated for Kevin washington/Sanjeev/Nicko on:?04/08/2024 01:51 PM CDT
--- OUTSIDE RECORDS SUMMARY | 2024-04-08 13:51 | XMS_ITS ---
Author Name Unknown Organization [facility] Address [address] [place] [address] Care Team Providers Care Chief Telephone Operator Name Role Phone Joseph Enrique Primary Care Provider DELVIN Escalera Unavailable [phone] RISA CORDOVA Unavailable [phone] Allergies Allergen (clinical drug ingredient) Drug/Non Drug [...] Glucose - Bilirubin - Ketones - Specific [place] 1.010 Occult Blood - pH 6.5 Urine Protein - Urobilinogen,Semi-Qn - Nitrite, Urine - WBC Esterase 2+ REASON FOR VISIT 3-4 wks w/ ua/pvr Medications Medication SIG (Take, Route, Frequency, Duration) Notes Start Date End Date Status Ceftin *Reorder from [facility] for eRx and Interaction Alerts* Not-Taking Meclizine HCl 25 MG 1 tablet as needed Orally every 12 hrs Active amLODIPine Besylate 5 MG 1 tablet Orally Once a day Active Bactrim DS 800-160 MG 1 tablet Orally Twice a day for 7 days Not-Taking Metoprolol Tartrate 100 MG 1 tablet with food Orally Twice a day Active Levothyroxine Sodium 50 MCG 1 tablet in the morning on an empty stomach Orally Once a day Active metFORMIN HCl *Pick strength-form from [employer] for eRX* Active Crestor 5 MG 1 tablet Orally Once a day Active Vital Signs Temperature 97.6 degrees Fahrenheit 06/14/20 23 Blood pressure systolic 156 mm Hg 06/14/20 23 Blood pressure diastolic 79 mm Hg 023 Heart Rate 64 /min 06/14/2023 Height 62 in 06/14/2023 Weight 80 lbs 06/14/2023 BMI 14.63 kg/m2 06/14/2023 Height-cm 157.48 cm 06/14/2023 Weight-kg 36.29 kg 06/14/2023 Procedures Procedure Date Ordered Date Performed Result Body Sit e Bladder Scan 06/14/2023 N/A Encounters Encounter Location Date Provider Diagnosis [facility] [address] [place] [address] 06/14/2023 RISA CORDOVA Recent urinary tract infection Z87.440 ; Fecal incontinence R15.9 ; Urge incontinence N39.41 ; Urgency of micturition R39.15 ; Frequency of micturition R35.0 ; Bowel habit changes R19.4 and Sacral neurostimulator in situ Z96.82 Assessments Encounter Date Diagnosis (ICD Code) Assessment Notes Treat ment Notes Treatment Clinical Notes 06/14/2023 Recent urinary tract infection (ICD-10 - Z87.440) 06/14/2023 Fecal incontinence (ICD-10 - R15.9) 06/14/2023 Urge incontinence (ICD-10 - N39.41) 06/14/2023 Urgency of micturition (ICD-10 - R39.15) 06/14/2023 Frequency of micturition (ICD-10 - R35.0) 06/14/2023 Bowel habit changes (ICD-10 - R19.4) 06/14/2023 Sacral neurostimulator in situ (ICD-10 - Z96.82) 06/14/2023 Other PVR 0 ml Patient's UA [...] her [employer] device, so I will have Raudel, [employer] rep contact her. Otherwise she will return to clinic in 3 to 4 months for follow-up. All questions that were asked were answered. Patient is satisfied with plan of care. Plan Of Treatment Treatment Notes Assessment Notes Other PVR 0 ml Patient's UA stable, [...] her [employer] device, so I will have Raudel [employer] rep contact her. Otherwise she will return to clinic in 3 to 4 months for follow-up. All questions that were asked were answered. Patient is satisfied with plan of care. Pending Test Test Name Order Date Bladder Scan 06/14/2023 Next Appt Details Follow Up: 3-4 months, Reaso n: ua/pvr Provider Name:LOLA Jonna GRIDER, 04/26/2024 11:20:00 AM, [address] [place], [address], Progress Notes * Niru BOWSER LDOB: [birth year] (73 yo F)Acc No.[id number]:06/14/2023 Progress Notes Patient:?Niru BOWSER Provider:?RALPH Maldonado :1950???Age:73 Y???Sex:Female D ate:06/14/2023 Address:[address] [place], [place] [id number] Pcp:Joseph Enrique Subjective: * Chief Complaints: * ???1. 3-4 wks w/ ua/pvr. * HPI: ???Migrated HPI:? Ms. Bowser is a 73-yo female patient of Dr. Bautista with urinary and fecal incontinence. She has a h/o sarcoma with radiation therapy in 2016, which caused her to have worsened urinary symptoms, as well as fecal incontinence and constipation. She has a h/o UTI's. She has T2DM. She has a h/o Lindsay's Palsy. She had a bowel obstruction in 2020. She is allergic to Oxybutynin, which she has trialed in the past. She wears a CPAP at night. She saw no improvement with her urinary symptoms from conservative measures. She underwent Axonics PNE trial on 07/07/22 and full implant on 07/28/2022. She saw Kunal Jaquez APRN, on 02/24/23, and noted still continued urgency and frequency at times and still wears a pad for preventative. She reported the Axonics device helps more with fecal incontinence than urinary incontinence. CT on 12/25/2022 revealed a right renal cyst and a nonobstructing left renal stone. UA appeared infected, treated with Bactrim DS BID x7 days and UA sent for PCR. PCR returned + and patient was changed to Cipro. She presented to clinic on 05/20/23 w/ increased frequency and malodorous urine. PCR + for E Coli, Pseudomonas, nad Citerobacter. She was tx with Levaquin. ? Denies fever, chills, N/V, or hematuria. ? Patient presents today for follow-up. She states she is feeling better since taking antibiotics for recent UTI. She continues to have bothersome bowel problems with increased fecal urgency and diarrhea. She reports increased stress due to her grandson being in his recent accidental shooting, and she states they do not know if he is going to make it . She states she noticed that her stress is probably worsening her bowel issues. * ROS:?General / Constitutional:?Patient denies?fever, chills, night sweats, change in appetite.?Respiratory:?Patient denies?cough, shortness of breath.?Cardiovascular:?Patient denies?chest pain, dizziness, palpitations.?Gastrointestinal:?Patient denies?abdominal pain, nausea, vomiting.?Genitourinary:?Patient denies?As documented in HPI?.? * Medical History:?Hypertensio n, Vertigo, Sleep apnea, Arthritis, Bladder infections, Myofiberblasts sarcoma, Diabetes mellitus. * Surgical History:?hysterecto my , bladder tie up , neuroma nerve left foot , Axonics sacral neuromodulater implant 07/28/22. * Hospitalization/Major Diagno stic Procedure:?Lindsay's Palsy , Intestinal blockage , pneumonia , hypertension . * Family History:?Father: dece ased, alzheimer's dementia.?Mother: , pneumonia.? * Social History:?Migrated Social History:?Drugs/Alcohol: (Do you drink alcohol?):No(Alcohol Screen (Audit-C)): Did you have a drink containing alcohol in the past year?: No, Points: 0, Interpretation: Negative(Drugs):Have you used drugs other than those for medical reasons in the past 12 months? No(Do you smoke marijuana?):Denies. Tobacco Use: (Tobacco Use/Smoking):Are you a: nonsmoker. * Medications:?Taking Metoprol ol Tartrate 100 MG Tablet 1 tablet with food Orally Twice a day , Taking Levothyroxine Sodium 50 MCG Tablet 1 tablet in the morning on an empty stomach Orally Once a day , Taking metFORMIN HCl , Notes to Pharmacist: *Pick strength-form from [facility] for eRX*, Taking Crestor 5 MG Tablet 1 tablet Orally Once a day , Taking Meclizine HCl 25 MG Tablet 1 tablet as needed Orally every 12 hrs , Taking amLODIPine Besylate 5 MG Tablet 1 tablet Orally Once a day , Not-Taking Bactrim DS 800-160 MG Tablet 1 tablet Orally Twice a day , Not-Taking Ceftin , Notes to Pharmacist: *Reorder from [facility] for eRx and Interaction Alerts*, Medication List reviewed and reconciled with the patient * Allergies:?Codeine: allergy, Accupril, Doxycycline Hyclate: nausea and vomiting, Ciprofloxacin HCl: nausea and vomiting, Demerol, Tramadol, Losartan, Ultram, Hyzaar, Oxybutynin, Lisinopril. Objective: * Vitals:?BP:156/79mm Hg, HR:6 4/min, Temp:97.6F, Wt:80lbs, Wt-k.29 kg, Ht: 62 in, Ht-cm: 157.48 cm, BMI:14.63Index, Body Surface Area: 1.26. * Examination: ???General Examination: ?General appearance:?alert, female, appears anxious, well-nourished and in no acute distress.?Skin:?skin is warm and dry, with no rashes, good skin turgor and normal hair distribution.?Heart:?regular rate.?Lungs:?symmetrical, non labored respirations.?Abdomen:?soft, non tender, non distended.?Back:?no CVA tenderness.? Assessment: * Assessment: 1.?Recent urinary tract infe ction - Z87.440 (Primary)?2.?Fecal incontinence - R15.9?3.?Urge incontinence - N39.41?4.?Urgency of micturition - R39.15?5.?Frequency of micturition - R35.0?6.?Bowel habit changes - R19.4?7.?Sacral neurostimulator in situ - Z96.82? Plan: * Treatment: ? Value Reference Range ?Urine-Color yellow * ?Appearance clear * ?Glucose - * ?Bilirubin - * ?Ketones - * ?Specific [place] 1.010 * ?Occult Blood - * ?pH 6.5 * ?Urine Protein - * ?Urobilinogen,Semi-Qn - * ?Nitrite, Urine - * ?WBC Esterase 2+ ?Procedure: Bladder Scan2.?Others? Notes: PVR 0 ml Patient's UA stable, PVR [...] her. Otherwise she will return to clinic in3 to 4 months for follow-up. All questions that were asked were answered. Patient is satisfied withplan of care.?? * Procedure Codes:?64648 US UR INE CAPACITY MEASURE, 27294 URINALYSIS, AUTO, W/O SCOPE * Follow Up:?3-4 months (Reaso n: ua/pvr) * Billing Information: * Visit Code:? 44016 Office Visit, Est Pt., Level 3. * Procedure Codes:? 39497 US URINE CAPACITY MEASURE. 82095 URINALYSIS, AUTO, W/O SCOPE. * AD GRINDER TOOL Sign off status: Completed true * Provider:?Risa Cordova APRN-CARRIER WASHER Date:?01/2023 Generated for Kevin washington/Sanjeev/eTransmitting on:?04/08/2024 01:51 PM CDT History and Physical Notes * Examination Category Sub-Category Detail Notes General Examination General appearance: alert, f emale, appears anxious, well-nourished and in no acute distress Heart: regular rate Lungs: symmetrical, non lab ored respirations Abdomen: soft, non tender, no n distended Skin: skin is warm and dry , with no rashes, good skin turgor and normal hair distribution Back: no CVA tenderness
--- OUTSIDE RECORDS SUMMARY | 2024-04-08 13:51 | XMS_ITS ---
Author Name Unknown Organization [facility] Address [address] [place] [address] Care Team Providers Care Cant Gang Sawyer Name Role Phone Joseph Enriqeu Primary Care Provider DELVIN Escalera Unavailable [phone] RISA CORDOVA Unavailable [phone] REASON FOR VISIT PCR + Medications Medication SIG (Take, Route, Fr equency, Duration) Notes Start Date End Date Status levoFLOXacin 500 MG 1 tablet Orally Once a day for 7 days 05/24/2023 05/31/2023 Active Encounters Encounter Location Date Provider Diagnosis [facility], [facility] [address] [place] [address] 05/24/2023 RISA CORDOVA Plan Of Treatment Medication Medication Name Sig Start Date Stop Date Notes levoFLOXacin 500 MG 1 tablet Orally Once a day for 7 days 05/24/2023 05/31/2023 Next Appt Details Provider Name:LOLA GRIDER, 04/26/2024 11:20:00 AM, [address] [place], [address], Progress Notes * Niru BOWSER LDOB: [birth year] (73 yo F)Acc No.[id number]:05/24/2023 Patient:?Niru Bowser :1950???Age:73 Y???Sex:Female Address:[address] [place] [id number] * Refills? Start levoFLOXacin Tablet, 500 MG, Orally, 7 Tablet, 1 tablet, Once a day, 7 days, Refills=0 * true * Date:? Generated for Kevin washington/Sanjeev/Nicko on:?04/08/2024 01:51 PM CDT
--- OUTSIDE RECORDS SUMMARY | 2024-04-08 13:52 | XMS_ITS ---
Author Name Unknown Organization [facility] Address [address] [place] [address] Care Team Providers Care Real Estate Recruiter Name Role Phone Klaus ROMANJoseph Primary Care Provider Unavail Kunal Knowles Unavailable [phone] Allergies Allergen (clinical drug ingredient) Drug/Non Drug Allergy documented on EMR Reaction Allergy Type Onset Date Status quinapril Accupril Unknown Drug Allergy Active ciprofloxacin Ciprofloxacin HCl nausea and vomiting Drug Allergy Active meperidine Demerol Unknown Drug Allergy Active doxycycline Doxycycline Hyclate nausea and vomiting Drug Allergy Active hydrochlorothiazide / losartan Hyzaar Unknown Drug Allergy Active tramadol Ultram Unknown Drug Allergy Active codeine Codeine allergy Drug Allergy Active lisinopril Lisinopril Unknown Drug Allergy Activ e losartan Losartan Unknown Drug Allergy Active oxybutynin Oxybutynin Unknown Drug Allergy Activ e tramadol Tramadol Unknown Drug Allergy Active Results Component Value Reference Range Notes Culture Urine [id number] Reviewed date:03/02/2023 10:07:57 AM Interpretation: Performing Lab: Notes/Report: Culture Urine PatiNIRU Whitt Culture Urine t: Culture Urine Culture Urine [facility] [id number] Culture Urine n: Culture Urine Microbiology Culture Urine PROCEDURE: Culture U rine [O1] Culture Urine SOURCE: Urine BODY SITE: Culture Urine COLLECTED DATE/TIME: 02/24/2023 14:28 CDT RECEIVED DATE/TIME: 02/25/2023 14:17 CDT Culture Urine START DATE/TIME: 02/07 14:17 CDT FREE TEXT SOURCE: Culture Urine FINAL REPORT Culture Urine Final Report [] Culture Urine Verified Date/Time: 02/27/2023 07:32 CDT Culture Urine >100,000 cfu/ml. Cit robacter freundii Culture Urine SUSCEPTIBILITY RESULTS Culture Urine Citfre Culture Urine Antibiotic MDIL MINT Culture Urine Amikacin <=2 Susceptible Culture Urine Amoxicillin/Clavulan ic Acid Resistant Culture Urine Aztreonam <=1 Susceptible Culture Urine Cefepime <=1 Susceptible Culture Urine Cefotetan Resistant Culture Urine Cefoxitin >=64 Resistant Culture Urine Cefpodoxime 2 Susceptible Culture Urine Ceftazidime <=1 Susceptible Culture Urine Ceftriaxone <=1 Susceptible Culture Urine Cefuroxime Resistant Culture Urine Ciprofloxacin <=0.25 Susceptible Culture Urine Doripenem <=0.12 Susceptible Culture Urine Gentamicin <=1 Susceptible Culture Urine Levofloxacin <=0.12 Susceptible Culture Urine Meropenem <=0.25 Susceptible Culture Urine Nitrofurantoin <=16 Susceptible Culture Urine Piperacillin <=4 Susceptible Culture Urine Tetracycline <=1 Susceptible Culture Urine Tobramycin <=1 Susceptible Culture Urine Order Comments Culture Urine O1: Culture Urine ([facility] Urine 32024) Culture Urine Diagnosis Descriptio n: Urinary tract infection, site not specified UA Without Micro-Auto [id number] Reviewed date:02/24/2023 02:52:05 PM Interpretation: Performing Lab: Notes/Report: Color YELLOW Clarity CLOUDY Glucose - Bili - Ketones - Sp [place] 1.010 Blood - pH 7.0 Protein - Urobili - Nitrites positive Leukocytes 2+ REASON FOR VISIT 2 month f/u w/ renal us(being done at [facility]) Medications Medication SIG (Take, Route, Frequency, Duration) Notes Start Date End Date Status amLODIPine Besylate 5 MG 1 tablet Orally Once a day Active Levothyroxine Sodium 50 MCG 1 tablet in the morning on an empty stomach Orally Once a day Active Metoprolol Tartrate 100 MG 1 tablet with food Orally Twice a day Active Bactrim DS 800-160 MG 1 tablet Orally Tw ice a day for 7 days Active Crestor 5 MG 1 tablet Orally Once a day Active metFORMIN HCl Active Ceftin Active Meclizine HCl 25 MG 1 tablet as needed Orally every 12 hrs Active Social History Tobacco Use: Social History Observation Description Date Details (start date - stop date) Never Smoker NA - NA xTobacco Use/Smoking Question Answer Notes Are you a nonsmoker Vital Signs Temperature 97.9 degrees Fahrenheit 02/25/20 23 Blood pressure systolic 150 mm Hg 02/25/20 23 Blood pressure diastolic 93 mm Hg 023 Heart Rate 77 /min 02/24/2023 Height 62 in 02/24/2023 Weight 190 lbs 02/24/2023 BMI 34.75 kg/m2 02/24/2023 Height-cm 157.48 cm 02/24/2023 Weight-kg 86.18 kg 02/24/2023 Encounters Encounter Location Date Provider Diagnosis [facility] [address] [place] [id number] 02/24/2023 Kunal Jaquez Recurrent UTI (urina ry tract infection) N39.0 ; Urge incontinence N39.41 ; Fecal incontinence R15.9 ; Constipation K59.00 ; 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 ; Urgency of micturition R39.15 and Frequency of micturition R35.0 Assessments Encounter Date Diagnosis (ICD Code) Assessment Notes Treat ment Notes Treatment Clinical Notes 02/24/2023 Recurrent UTI (urinary tract infection) (ICD-10 - N39.0) 02/24/2023 Urge incontinence (ICD-10 - N39.41) 02/24/2023 Fecal incontinence (ICD-10 - R15.9) 02/24/2023 Constipation (ICD-10 - K59.00) 02/24/2023 Neoplasm of uncertain behavior of connective and other soft tissue (ICD-10 - D48.1) 02/24/2023 Urgency of micturition (ICD-10 - R39.15) 02/24/2023 Frequency of micturition (ICD-10 - R35.0) Plan Of Treatment Medication Medication Name Sig Start Date Stop Date Notes Bactrim DS 800-160 MG 1 tablet Orally Tw ice a day for 7 days Next Appt Details Follow Up: 4-6 weeks w/ ua/p vr, Reason: Progress Notes * Niru BOWSER LDOB: [birth year] (72 yo F)Acc No.[id number]:02/24/2023 Progress Notes Patient:?Niru Bowser Provider:?Kunal Jaquez APRN :1950???Age:72 Y???Sex:Female D ate:02/24/2023 [address] [place], [id number] Pcp:Joseph Enrique Check Out:02:27 PM SAMPLE WEAVER Subjective: * Chief Complaints: * ???2 month f/u w/ renal us(b eing done at [facility]) * HPI: ???Provider Note:? Patient is a 72-year-old female who initially presented for evaluation and management of urinary and fecal incontinence. She has a h/o sarcoma with radiation therapy, which caused her to have worsened urinary symptoms, as well as fecal incontinence and constipation. She has a h/o UTI's. She is an insulin dependant diabetic. She has a h/o Lindsay's Palsy. She had a bowel obstruction in 2020. She is allergic to Oxybutynin, which she has trialed in the past. She wears a CPAP at night. She saw no improvement with her urinary symptoms from conservative measures. She underwent Axonics PNE trial on 07/07/22 and presented shortly after for lead removal where she reported that this had improved her fecal and urinary incontinence, as well as her frequency and urgency of urination. She underwent stage II of Axonics on 07/28/2022. ?Dr. Bautista last saw patient on 12/07/2022 and here today for interval 2- month follow-up and symptom reassessment. At last office visit it was mentioned that she reported a still continued urinary urgency and frequency at times and still wears a pad for preventative. She reported that the Axonics device helps more with her fecal incontinence than urinary incontinence. Is also mentioned at last office visit that she was told that she had a renal cyst from another provider and she was instructed to return care today with a renal ultrasound. Denies dysuria, fever, hematuria, or flank pain. Fortunately, patient did end up getting a CT on 12/25/2022 shortly after the last office visit that confirmed a right renal cyst and a nonobstructing left renal stone. Unsure of size. Radiology report is scanned in. I am unable to view imaging. She reports still the same continued urinary incontinence/overactive bladder. * ROS:?General - Multi System:?Constitutional?Denies fever, chills, body aches.?Cardiovascular?Denies any recent chest pain.?Respiratory?Denies any shortness of breath.?Gastrointestinal?Denies constipation, diarrhea, vomiting.?Genitourinary?as per HPI.?Integumentary?Denies any rashes.? * Medical History:? * Surgical History:?hysterecto my bladder tie up neuroma nerve left foot Axonics sacral neuromodulater implant 07/28/22 * Hospitalization/Major Diagno stic Procedure:?Lindsay's Palsy Intestinal blockage pneumonia hypertension * Family History:?Father: dece ased, alzheimer's dementia.?Mother: , pneumonia.? * Social History:?Tobacco Use:?Tobacco Use/Smoking?Are you a?nonsmoker * Medications:?TakingmetFORMIN HCl Ceftin Meclizine HCl 25 MG Tablet 1 tablet as needed Orally every 12 hrsCrestor 5 MG Tablet 1 tablet Orally Once a dayMetoprolol Tartrate 100 MG Tablet 1 tablet with food Orally Twice a dayamLODIPine Besylate 5 MG Tablet 1 tablet Orally Once a dayLevothyroxine Sodium 50 MCG Tablet 1 tablet in the morning on an empty stomach Orally Once a dayMedication List reviewed and reconciled with the patientTaking metFORMIN HCl Taking Ceftin Taking Meclizine HCl 25 MG Tablet 1 tablet as needed Orally every 12 hrsTaking Crestor 5 MG Tablet 1 tablet Orally Once a dayTaking Metoprolol Tartrate 100 MG Tablet 1 tablet with food Orally Twice a dayTaking amLODIPine Besylate 5 MG Tablet 1 tablet Orally Once a dayTaking Levothyroxine Sodium 50 MCG Tablet 1 tablet in the morning on an empty stomach Orally Once a dayMedication List reviewed and reconciled with the patient * Allergies:?Codeine: allergyA ccuprilDoxycycline Hyclate: nausea and vomitingCiprofloxacin HCl: nausea and vomitingDemerolTramadolLosartanUltramHyzaarOxybutyninLisinoprilno[Allergies Verified] Objective: * Vitals:?Ht: 62 in, Wt:190 lb s, Wt-k.18 kg, BMI:34.75 Index, Temp:97.9 F, BP:150/93 mm Hg, HR:77 /min, Ht-cm: 157.48 cm. * Examination: ???General Examination: ?GENERAL APPEARANCE:?alert, well hydrated, in no distress.?HEAD:?normocephalic, atraumatic.?EARS:?normal.?HEART:?regular rate; no peripheral edema.?LUNGS:?bilateral, symmetrical unlabored respirations.?MUSCULOSKELETAL:?full range of motion, ambulatory.? 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 72 y/o F with UUI, recurrent UTI's, and fecal incontinence; s/p Axonics device implantation on 07/28/22. She had great Improvement in urinary and fecal symptoms. However, still not satisfied with her urinary complaints. I did offer her to start on oral medications as well as continue with Axonics management, however, she is deferring at this time. She is hard to keep on task as she kept mentioning about how pitiful her life is. She still has occasional frequency and urgency, and wears a pad for preventative. She reports she is doing well with SNM, noting she recently turned up her settings which seemed to improve symptoms. She feels as if SNM has helped more with her fecal incontinence than with urinary. She reports occasional flank pain, and reports she was told she had a renal cyst in the past. I reviewed the CT that was done through radiology report and mention that there is no acute findings. No need for continued surveillance on the cyst. I will plan for her to return in 2 months to review SUSSY symptoms with Dr. Bautista. I will send todays UA for culture. Will go ahead and treat with concerning for UTI. We will treat further if unable to be treated on urine culture. I advised her to call [employer] rep with any questions regarding proper settings and programming with her Axonics device. She is satisfied with this plan, and all questions were answered. Plan: * Treatment: ? Value Reference Range ?Culture Urine PatiNIRU Whitt - * This lab was reviewed by Jevon Jaquez on 03/02/2023 at 10:07 AM CDT ?LAB: UA Without Micro-Auto [id number]* ? Value Reference Range ?Color YELLOW * ?Clarity CLOUDY * ?Glucose - * ?Bili - * ?Ketones - * ?Sp [place] 1.010 * ?Blood - * ?pH 7.0 * ?Protein - * ?Urobili - * ?Nitrites positive * ?Leukocytes 2+ * Procedure Codes:?13655 URINA LYSIS, AUTO, W/O SCOPE, Modifiers: QW * Follow Up:?4-6 weeks w/ ua/p vr * Billing Information: * Visit Code:? 52632 Office Visit, Est Pt., Level 4. * Procedure Codes:? 77861 URINALYSIS, AUTO, W/O SCOPE. Modifiers: QW * Sign off status: Completed true * Provider:?Kunal Jaquez APRN Date:?02/06 Generated for Lazaroi ng/Fasterlingg/eTransmitting on:?04/08/2024 01:51 PM CDT History and Physical Notes * Examination Category Sub-Category Detail Notes General Examination GENERAL APPEARANCE: alert, w ell hydrated, in no distress HEAD: normocephalic, atrau matic EARS: normal HEART: regular rate; no per ipheral edema LUNGS: bilateral, symmetric al unlabored respirations MUSCULOSKELETAL: full range of motion , ambulatory
--- OUTSIDE RECORDS SUMMARY | 2024-04-08 13:52 | XMS_ITS ---
Author Name Unknown Organization [facility] Address [address] [place] [address] Care Team Providers Care Insurance Agent Name Role Phone Klaus ROMANJoseph Primary Care Provider Unavail Kunal Knowles Unavailable [phone] REASON FOR VISIT positive urine culture Medications Medication SIG (Take, Route, Fr equency, Duration) Notes Start Date End Date Status Cefdinir 300 MG as directed Orally BID for 7 days 03/02/2023 03/09/2023 Active Encounters Encounter Location Date Provider Diagnosis [facility] [address] [place] [address] 03/02/2023 Kunal Jaquez Plan Of Treatment Medication Medication Name Sig Start Date Stop Date Notes Cefdinir 300 MG as directed Orally BID for 7 days 03/02/2003/09/2023 Progress Notes * Niru BOWSER LDOB: [birth year] (72 yo F)Acc No.[id number]:03/02/2023 Patient:?Niru Bowser :1950???Age:72 Y???Sex:Female Address:[address] [place] [id number] * Refills? Start Cefdinir Capsule, 300 MG, Orally, 14, as directed, BID, 7 days, Refills=0 * true * Date:? Generated for Printi ng/Faxing/eTransmitting on:?04/08/2024 01:51 PM CDT
--- OUTSIDE RECORDS SUMMARY | 2024-04-08 13:52 | XMS_ITS | Patient Health Record ---
Author Name Unknown Organization [facility] Address [address] [place] [address] Care Team Providers Care Social Studies Department Chair Name Role Phone Joseph Enrique DO Primary Care Provider Unavail able Kunal Jaquez Unavailable [phone] Dhruv Bautista Unavailable [phone] Allergies Allergen (clinical drug ingredient) Drug/Non Drug [...] e tramadol Tramadol Unknown Drug Allergy Active Reason For Referral No Information Medications Medication [...] ice a day for 7 days Active metFORMIN HCl Active Ceftin Active Meclizine HCl 25 MG 1 tablet as needed Orally every 12 hrs Active Crestor 5 MG 1 tablet Orally Once a day Active Social History Tobacco Use: Social History Observation Description Date Details (start date - stop date) Never Smoker NA - NA xTobacco Use/Smoking Question Answer Notes Are you a nonsmoker Alcohol Screen (Audit-C) Question Answer Notes Did you have a drink containing alcohol in the p ast year? 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 Problem Urge incontinence of urine (08493212) Urge incontinence (N39.41) Active confirmed Problem 480861026 Urinary incontinence, unspecified type (R32) Active confirmed Problem Urinary tract infectious disease (93700077) Recurrent UTI (urinary tract infection) (N39.0) Active confirmed Problem Constipation (61648431) Constipation (K59.00) Active confirmed Problem Bowel incontinence (42661510) Fecal incontinence (R15.9) Active confirmed Plan Of Treatment Pending Test Test Name Order Date Basic Metabolic Panel (BMP) 36811 2021 CBC w\ Auto Diff 55042 07/20/2022 US Renal w/bladder-22014 12/07/2022 Electrocardiogram 12 Lead Tracing-[id number] 06/24/2022 Insurance Providers Payer Name Payer Address Payer Phone Subscriber Number Group Number Insured Name Patient Relationship to Insured Coverage Start Date Coverage End Date [employer] [place] [address] [place] [phone] [id number] Niru Bowser Self - patient is the insured Medical (General) History Medical History History ICD Code hypertension vertigo sleep apnea 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
[2024-04-08 16:00] VITALS: BP 172/93; PULSE 91; RESP 15; TEMP 36.6; O2SAT 98
--- NOTE | 2024-04-08 16:24 | XRR_ITS ---
PROCEDURE INFORMATION: Exam: XR Chest Exam date and time: 04/08/2024 4:34 PM Age: 74 years old Clinical indication: Device placement; Ng tube; Additional info: Ng placement TECHNIQUE: Imaging protocol: Radiologic exam of the chest. Views: 1 view. COMPARISON: CT chest abdpel w/*[id number] 12/25/2022 3:19 PM FINDINGS: Tubes, catheters and devices: The feeding tube is in good position within the stomach. Lungs: Unremarkable. No consolidation or mass. Pleural spaces: Unremarkable. No pleural effusion. No pneumothorax. Heart/Mediastinum: Unremarkable. No cardiomegaly. Bones/joints: Unremarkable. XR/XR chest 1V portable [id number] IMPRESSION: Good enteric feeding tube positioning
[2024-04-08] MEDS: phenol oral Spray 177 mL 3 SPRAY MUCOUS MEM (16:50)
[2024-04-08 19:46] VITALS: BP 185/99; PULSE 96; RESP 16; TEMP 36.9; O2SAT 96
[2024-04-08] MEDS: sucralfate 1 gm/10 mL Oral Liq UDC PO (20:55)
[2024-04-08] MEDS: cefTRIAXone 1,000 mg SDV 1000 MG IVP (20:56)
[2024-04-08] MEDS: acetaminophen 325 mg Tablet 650 MG PO (22:46)
[2024-04-09] VITALS: BP 164/83; PULSE 93; RESP 17; TEMP 36.7; O2SAT 95
[2024-04-09] MEDS: sodium chloride 0.9% 1,000 ML 75 ML IV ×2 (01:32→15:19)
[2024-04-09 04:00] VITALS: BP 164/91; PULSE 87; RESP 14; TEMP 36.8; O2SAT 94
[2024-04-09] MEDS: sucralfate 1 gm/10 mL Oral Liq UDC PO ×4 (06:06→20:28)
[2024-04-09 07:49] VITALS: BP 173/94; PULSE 90; RESP 17; TEMP 36.8; O2SAT 95
[2024-04-09] MEDS: pantoprazole 40 mg SDV IVP ×2 (07:52→20:28)
[2024-04-09] MEDS: heparin 5,000 unit/mL INJ 1 mL 5000 UNIT SUBCUT ×2 (07:52→20:28)
[2024-04-09] MEDS: acetaminophen 325 mg Tablet 650 MG PO ×2 (09:23→23:51)
[2024-04-09 09:56] LABS: Basophils % 0.5 %; Eosinophils # 0.1 10^3/uL (0.0-0.8); Eosinophils % 2.6 %; Hematocrit 41.9 % (36-47); Lymphocytes # 0.5 10^3/uL (0.8-4.8); Mean Corpuscular HGB Conc 31.3 g/dL (30-55); Mean Corpuscular Hemoglobin 28.4 pg (27-33); Mean Corpuscular Volume 90.7 fl (85-98); Mean Platelet Volume 10.2 fL (7.4-10.4); Monocytes # 0.3 10^3/uL (0.2-0.9); Monocytes % 8.2 %; Neutrophils # 2.82 10^3/uL (1.8-7.7); Neutrophils % 74.4 %; Nucleated Red Blood Cells % 0 %; Platelet Count 158 10^3/cmm (157-399); Red Blood Count 4.62 10^6/uL (3.85-5.65); Red Cell Distribution Width 13.2 % (12.1-15.1); White Blood Count 3.79 10^3/uL (3.29-11.43)
[2024-04-09 10:13] LABS: Alanine Aminotransferase 7 U/L (0-33); Albumin Level 3.8 g/dL (3.5-5.2); Alkaline Phosphatase 82 U/L (35-105); Anion Gap 19.5 (5-19); Aspartate Amino Transferase 11 U/L (0-32); Blood Urea Nitrogen 7 mg/dL (8-23); Calcium 8.4 mg/dL (8.5-10.5); Carbon Dioxide 20 mmol/L (22-29); Chloride 103 mmol/L (98-107); Creatinine Clr Calc Pharmacy 58.3432; Globulin 2.8 g/dL (1.3-4.6); Glucose 77 mg/dL (65-115); Osmolality Calculated 285 mOsm/kg (285-295); Potassium 3.5 mmol/L (3.5-5.1); Sodium 139 mmol/L (136-145); Total Bilirubin 0.4 mg/dL (0.15-1.2); Total Protein 6.6 g/dL (6.6-8.7)
[2024-04-09 12:00] VITALS: BP 159/81; PULSE 86; RESP 16; TEMP 36.5; O2SAT 96
--- NOTE | 2024-04-09 12:31 | P.PN_ITS ---
Subjective 2 Subjective: Pain significantly improved. Nausea resolved. Abdomen is soft. Vitals/I&O/Wt Last Vital Signs Temp 97.7 F 04/09/24 12:00 Pulse 86 04/09/24 12:00 Resp 16 04/09/24 12:00 BP 159/81 04/09/24 12:00 Pulse Ox 96 04/09/24 12:00 O2 Del Method Room Air 04/09/24 12:00 04/08/24 04/09/24 04/09/24 22:59 06:59 14:59 Intake Total 999 Output Total 400 / 400 Balance 999 -400 / -400 Weight last 48 hrs Weight 174 lb 12.8 oz Weight 176 lb Weight 180 lb 9.6 oz Weight 1701 lb Physical Exam 2 Narrative: Chest: Unlabored breathing room air. No lymphadenopathy. Heart: Regular rate and rhythm. Abdomen: Soft, nontender, nondistended. No masses or lymphadenopathy. Data 04/09/24 09:24 04/09/24 09:24 Micro: Microbiology 04/07/24 20:12 Urine Culture - Preliminary Urine,Clean Catch Gram Negative Rods A&P Assessment and plan (1) Duodenitis: Plan 74-year-old female who presented with a picture of duodenitis. She is responding well to bowel rest. Recommend keeping the NG tube to low continuous suction for 1 more day. If NG tube output is down in the morning we can consider removing the NG tube. We can plan for outpatient EGD in 4 weeks. Attestations 2 Medical Necessity Statement*: Ongoing treatment of duodenitis Coding Level of Care Code 68923 Diagnoses Duodenitis K29.80 Time Spent (min) 30
--- NOTE | 2024-04-09 15:36 | P.PN_ITS ---
Subjective 2 Subjective: Patient was seen this morning, NG tube in place, she denies any fevers, chills, no cough, denies passing any gas from below, has not had a bowel movement, no nausea, vomiting Vitals/I&O/Wt Last Vital Signs Temp 97.7 F 04/09/24 12:00 Pulse 86 04/09/24 12:00 Resp 16 04/09/24 12:00 BP 159/81 04/09/24 12:00 Pulse Ox 96 04/09/24 12:00 O2 Del Method Room Air 04/09/24 12:00 04/09/24 04/09/24 04/09/24 06:59 14:59 22:59 Intake Total 999 1000 / 1000 Output Total 400 / 400 Balance 999 600 / 600 Weight last 48 hrs Weight 79.288 kg Weight 79.832 kg Weight 81.919 kg Physical Exam 2 Const: COMMON NORMALS: no acute distress and patient oriented x3 Resp: COMMON NORMALS: normal respiratory effort, No retractions, No use of accessory muscles and clear to auscultation bilaterally AUSCULTATION: clear to auscultation bilaterally Cardio: COMMON NORMALS: regular rate, regular rhythm, S1 normal heart sound present and S2 normal heart sound present RATE: regular rate RHYTHM: r egular rhythm HEART SOUNDS: S1 normal heart sound present and S2 normal heart sound present GI: OTHER: Abdomen soft, slightly distended, scattered bowel sounds, no guarding, no rebound, no rigidity Extremity: COMMON NORMALS: no pedal edema Neuro: COMMON NORMALS: patient oriented x3 Psych: COMMON NORMALS: mental status grossly normal Data 04/09/24 09:24 04/09/24 09:24 Micro: Microbiology 04/07/24 20:12 Urine Culture - Preliminary Urine,Clean Catch Gram Negative Rods A&P Assessment and plan (1) Intractable nausea and vomiting: Intractable nausea and vomiting likely secondary to duodenal pathology versus ileus, partial SBO or ileus Start IV fluid normal saline Antiemetics as needed Continue Protonix 40 IV twice daily, Carafate ? NG tube -N.p.o. (2) Duodenitis: CT scan suspicious for duodenitis versus duodenal ulcer Start IV PPI, Carafate Monitor blood counts Treat symptomatology as noted above May benefit from endoscopy as outpatient (3) Ileus: CT scan suspicious for ileus versus partial small bowel obstruction Bowel rest General Surgery consulted IV fluids Antiemetics as needed IV analgesics as needed Serial abdominal exams (4) UTI (urinary tract infection): Urinalysis consistent with acute complicated urinary tract infection Urine to reflex to culture Prior urine cultures reviewed, no recent culture to guide therapy, pansensitive E. coli in 2020 ceftriaxone (5) Hyponatremia: Hypovolemic hyponatremia secondary to GI loss Start normal saline infusion Control underlying GI symptoms (6) Hypothyroidism: Continue Synthroid (7) Hypertension: Hydralazine as needed Plan DVT prophylaxis: Heparin Full code Plan for today serial abdominal exams pain control, nausea control NG tube in place Attestations 2 Medical Necessity Statement*: Patient requires hospitalization for partial small bowel obstruction, duodenitis, Diagnoses Intractable nausea and vomiting R11.2 Duodenitis K29.80 Ileus K56.7 UTI (urinary tract infection) N39.0 Hyponatremia E87.1 Hypothyroidism E03.9 Hypertension I10
[2024-04-09 16:00] VITALS: BP 173/99; PULSE 92; RESP 18; TEMP 36.7; O2SAT 96
[2024-04-09 20:00] VITALS: BP 170/82; PULSE 93; RESP 17; TEMP 36.8; O2SAT 96
[2024-04-09] MEDS: cefTRIAXone 1,000 mg SDV 1000 MG IVP (20:27)
[2024-04-09] MEDS: metoprolol tartrate 50 mg Tablet 100 MG PO (21:41)
[2024-04-09] MEDS: hyDRALAzine 20 mg/mL INJ 1 mL 10 MG IVP (23:51)
[2024-04-10] VITALS: BP 177/85; PULSE 80; RESP 17; TEMP 36.8; O2SAT 95
[2024-04-10] MEDS: sodium chloride 0.9% 1,000 ML 75 ML IV (03:57)
[2024-04-10 04:00] VITALS: BP 172/84; PULSE 85; RESP 17; TEMP 36.4; O2SAT 96
[2024-04-10] MEDS: hyDRALAzine 25 mg Tablet PO (04:24)
[2024-04-10] MEDS: sucralfate 1 gm/10 mL Oral Liq UDC PO (06:04)
[2024-04-10 07:36] VITALS: BP 177/82; PULSE 101; RESP 16; TEMP 36.4; O2SAT 95
[2024-04-10] MEDS: pantoprazole 40 mg SDV IVP (08:42)
[2024-04-10] MEDS: heparin 5,000 unit/mL INJ 1 mL 5000 UNIT SUBCUT (08:42)
[2024-04-10] MEDS: metoprolol tartrate 50 mg Tablet 100 MG PO (08:43)
[2024-04-10] MEDS: acetaminophen 325 mg Tablet 650 MG PO (09:14)
--- NOTE | 2024-04-10 10:07 | PC.NURSE ---
pt compaining of arm pain. Tylenol given to help alleviate some of the soreness.
--- NOTE | 2024-04-10 10:45 | PC.NURSE ---
NG tube removed at 1040. 100 ml of aspirate in suction container.
--- NOTE | 2024-04-10 11:15 | P.PN_ITS ---
Subjective 2 Subjective: Patient had a BM in the ER Passing flatus Bowel sounds present Plan to remove NG tube Start clear liquid diet For hypertension resume p.o. metoprolol 100 mL of bile in last 24 hours Vitals/I&O/Wt Last Vital Signs Temp 97.6 F 04/10/24 07:36 Pulse 101 H 04/10/24 07:36 Resp 16 04/10/24 07:36 BP 177/82 04/10/24 07:36 Pulse Ox 95 04/10/24 07:36 O2 Del Method Room Air 04/10/24 07:36 04/09/24 04/10/24 04/10/24 22:59 06:59 14:59 Intake Total 1000 / 2000 Output Total 400 / 800 1000 / 1000 Balance -400 / 200 1000 / 1200 -1000 / -1000 Weight last 48 hrs Weight 77.196 kg Weight 79.288 kg Physical Exam 2 Narrative: Abdomen soft Bowel sound present GCS 15 nonfocal neuroexam Signs of dehydration present Family at the bedside Currently on IV fluids Nonfocal neuroexam Hypertensive this morning with Data 04/09/24 09:24 04/09/24 09:24 Micro: Microbiology 04/07/24 20:12 Urine Culture - Final Urine,Clean Catch Escherichia coli A&P Assessment and plan (1) Hypertension: (2) Hypothyroidism: (3) Hyponatremia: (4) Intractable nausea and vomiting: (5) Duodenitis: (6) Ileus: (7) UTI (urinary tract infection): Plan Patient is passing flatus, bowel sound present Remove NG tube, start clear liquid diet For hypertension continue metoprolol If able to tolerate diet without nausea or vomiting discontinue IV fluids DVT prophylaxis on heparin UTI: Continue ceftriaxone Plan to discharge later today versus tomorrow morning Attestations 2 Medical Necessity Statement*: Continue medical management Diagnoses Hypertension I10 Hypothyroidism E03.9 Hyponatremia E87.1 Intractable nausea and vomiting R11.2 Duodenitis K29.80 Ileus K56.7 UTI (urinary tract infection) N39.0
[2024-04-10 12:00] VITALS: BP 173/84; PULSE 68; RESP 19; TEMP 36.5; O2SAT 98
--- NOTE | 2024-04-10 12:19 | P.DS_ITS ---
Discharge Providers Date of Admission: 04/07/24 20:42 Date of Discharge: April 10, 2024 Attending Provider at Admission: Jimmy Greer MD Attending Provider at Discharge: Tomas Pelayo MD Primary Care Provider: Joseph Enrique DO Diagnoses at Discharge Discharge Diagnosis (1) Hypertension: Status: Acute (2) Hypothyroidism: Status: Acute (3) Hyponatremia: Status: Acute (4) Intractable nausea and vomiting: Status: Acute (5) Duodenitis: Status: Acute (6) Ileus: Status: Acute (7) UTI (urinary tract infection): Status: Acute Reason for Visit Reason for Visit: [place] Hospital Course Hospital Course 74-year-old female who was admitted to the hospital for chief complaint of recurrent nausea vomiting, she had a bowel movement in the ER she was diagnosed with partial SBO/duodenitis, patient was managed conservatively, she was kept n.p.o. with NG tube placement to low intermittent suction which was removed when she started passing flatus, patient tolerated clear liquid diet afterwards, surgical service cleared her to go home and advance diet gradually, she will need endoscopy 2 to [address] for concern related to duodenal ulcer. She was given antibiotics for UTI. At the time of discharge patient will receive antibiotics, Protonix and sucralfate. Physical Exam Narrative: Pleasant cooperative GCS 15 Nonfocal neuroexam S1, S2 Discharge Data Studies Completed and Pending Completed Studies During Hospitalization Category Date Time Status CT abdomen pelvis wo con 30902 Stat Cat Scan 04/07/24 18:31 Completed XR KUB portable [id number] Routine Exams 04/08/24 10:29 Completed XR chest 1V portable [id number] Stat Exams 04/08/24 16:24 Completed Pending at discharge Category Date Time Status Basic Metabolic Panel AM LABS Lab 04/11/24 04:00 Ordered Complete Blood Count w/Auto AM LABS Lab 04/11/24 04:00 Ordered Radiology Impressions Abdomen/Pelvis CT 04/07/24 18:31 IMPRESSION: 1. Fluid tracking in the right retroperitoneal reflection and abutting the duodenal highly suspicious for duodenal pathology there is suggestion of moderate duodenal thickening as well. Pancreatitis could also have this appearance though duodenitis or duodenal ulcer is suspected. 2. Multiple prominent fluid-filled segments of small bowel in the lower abdomen raise concern for at least partial small bowel obstruction. Ileus could also have this appearance. 3. Other nonemergent findings above. ADDENDUM: 04/07/241917 THIS REPORT CONTAINS FINDINGS THAT MAY BE CRITICAL TO PATIENT CARE. The findings were verbally communicated via telephone conference with ANU FERNANDES at 7:17 PM CDT on 04/07/2024. The findings were acknowledged and understood. KUB X-Ray 04/08/24 10:29 IMPRESSION: No acute findings Chest X-Ray 04/08/24 16:24 IMPRESSION: Good enteric feeding tube positioning Laboratory Results WBC 3.79 10^3/uL (3.29-11.43) 04/09/24 09: RBC 4.62 10^6/uL (3.85-5.65) 04/09/24 09: Hgb 13.10 g/dL (11.27-16.99) 04/09/24 09: Hct 41.9 % (36-47) 04/09/24 09: MCV 90.7 fl (85-98) 04/09/24 09: MCH 28.4 pg (27-33) 04/09/24 09: MCHC 31.3 g/dL (30-55) 04/09/24 09: RDW 13.2 % (12.1-15.1) 04/09/24 09: Plt Count 158 10^3/cmm (157-399) 04/09/24 09:24 MPV 10.2 fL (7.4-10.4) 04/09/24 09:24 Neut % (Auto) 74.4 % 04/09/24 09: Lymph % (Auto) 14.0 % 04/09/24 09:24 [place]irie % (Auto) 8.2 % 04/09/24 09:24 Eos % (Auto) 2.6 % 04/09/24 09:24 Baso % (Auto) 0.5 % 04/09/24 09: Neut # (Auto) 2.82 10^3/uL (1.8-7.7) 04/09/24 09:24 Lymph # (Auto) 0.5 10^3/uL (0.8-4.8) L 04/09/24 09:24 Prairie # (Auto) 0.3 10^3/uL (0.2-0.9) 04/09/24 09:24 Eos # (Auto) 0.1 10^3/uL (0.0-0.8) 04/09/24 09:24 Baso # (Auto) 0.0 10^3/uL (0.0-0.1) 04/09/24 09:24 Nucleated RBC % (auto) 0 % 04/09/24 09:24 Nucleated RBCs # 0.0 /100WBC 04/09/24 09:24 Sodium 139 mmol/L (136-145) 04/09/24 09:24 Potassium 3.5 mmol/L (3.5-5.1) 04/09/24 09:24 Chloride 103 mmol/L (98-107) 04/09/24 09:24 Carbon Dioxide 20 mmol/L (22-29) L 04/09/24 09:24 Anion Gap 19.5 (5-19) H 04/09/24 09:24 BUN 7 mg/dL (8-23) L 04/09/24 09:24 Creatinine 0.5 mg/dL (0.5-0.9) 04/09/24 09:24 GFR Calculation Not Reportable 04/09/24 09:24 Glucose 77 mg/dL (65-115) 04/09/24 09:24 Calculated Osmolality 285 mOsm/kg (285-295) 04/09/24 09:24 Lactic Acid 1.2 mmol/L (0.5-2.2) 04/07/24 15:50 Calcium 8.4 mg/dL (8.5-10.5) L 04/09/24 09:24 Phosphorus 2.7 mg/dL (2.5-4.5) 04/08/24 02:40 Magnesium 2.0 mg/dL (1.7-2.3) 04/08/24 02:40 Total Bilirubin 0.4 mg/dL (0.15-1.2) 04/09/24 09:24 AST 11 U/L (0-32) 04/09/24 09:24 ALT 7 U/L (0-33) 04/09/24 09:24 Alkaline Phosphatase 82 U/L (35-105) 04/09/24 09:24 Total Protein 6.6 g/dL (6.6-8.7) 04/09/24 09:24 Albumin 3.8 g/dL (3.5-5.2) 04/09/24 09:24 Globulin 2.8 g/dL (1.3-4.6) 04/09/24 09:24 Lipase 20 U/L (13-60) 04/07/24 15:50 Procalcitonin 0.21 ng/mL (0-0.5) 04/07/24 15:50 Urine Color Yellow (Yellow) 04/07/24 20:12 Urine Appearance Cloudy (CLEAR) A 04/07/24 20:12 Urine pH 5.5 (5-7) 04/07/24 20:12 Ur Specific Blanchard 1.012 (1.005-1.030) 04/07/24 20:12 Urine Protein Negative (Negative) 04/07/24 20:12 Urine Glucose (UA) Negative (Normal) 04/07/24 20:12 Urine Ketones 2+ (Negative) H 04/07/24 20:12 Urine Blood Negative (Negative) 04/07/24 20:12 Urine Nitrate Positive (Negative) A 04/07/24 20:12 Urine Bilirubin Negative (Negative) 04/07/24 20:12 Urine Urobilinogen 1.0 mg/dL (Negative) 04/07/24 20:12 Ur Leukocyte Esterase 2+ (Negative) A 04/07/24 20:12 Urine RBC 0-2 /hpf (0-2) 04/07/24 20:12 Urine WBC 51-100 /hpf (0-5) H 04/07/24 20:12 Ur Squamous Epith Cells 0-5 /hpf (0-5) 04/07/24 20:12 Amorphous Sediment Not Reportable 04/07/24 20:12 Urine Bacteria 4+ /hpf (NONE) H 04/07/24 20:12 Hyaline Casts 1.65 /lpf 04/07/24 20:12 Vitals Last Vital Signs Temp 97.7 F 04/10/24 12:00 Pulse 68 04/10/24 12:00 Resp 19 H 04/10/24 12:00 BP 173/84 04/10/24 12:00 Pulse Ox 98 04/10/24 12:00 O2 Del Method Room Air 04/10/24 12:00 Discharge Plan Discharge Patient Disposition: Home Condition: Stable Prescriptions: New pantoprazole [Protonix] 40 mg tablet,delayed release (DR/EC) 40 mg PO BID 56 Days Qty: 112 0RF sucralfate 1 gram tablet 1 g PO BID 84 Days Qty: 168 0RF Continued rosuvastatin [Crestor] 5 mg tablet 5 mg PO DAILY@0900 levothyroxine 50 mcg capsule 50 mcg PO DAILY@0500 cholecalciferol (vitamin D3) [Vitamin D3] 25 mcg (1,000 unit) Capsule 25 mcg PO DAILY@2100 coenzyme Q10 50 mg Tablet 50 mg PO DAILY@0900 Artificial Eye Lubricant 83-15 % ointment 1 applic ophthalmic (eye) Q4H PRN (Reason: dry eye(s)) 20 Days Qty: 3.5 5RF artifi.tears(hypromellose)(PF) 0.3 % drops 1 drp ophthalmic (eye) Q6H PRN (Reason: dry eyes) 20 Days Qty: 10 5RF metoprolol tartrate 50 mg tablet 100 mg PO BID@09,21 30 Days Qty: 60 1RF (DME) Eye Pad Pad See Rx Instructions .Route Qty: 1 0RF Rx Instructions: As directed meclizine 25 mg tablet 12.5 mg PO TID PRN (Reason: vertigo) Qty: 14 0RF Zofran 4 mg tablet 4 mg PO DAILY PRN (Reason: Nausea) Discharge Orders: Discharge Order (Routine); Ordered 04/10/24 Ordered By: Manolo Cavanaugh Referrals: Anjel Tony MD [Physician] - 3 weeks Joseph Enrique DO [Primary Care Provider] - Discharge Diet: Full LIquid Patient Instructions: Opioid Safety Discharge Attestations Time Spent in Discharge Care*: less than 30 min Status at Discharge: Cognitive status at discharge: cognitively intact , Behavioral status at discharge: cooperative , Quality Metrics Clinical Quality Measures [ No reported AMI, CVA or VTE this stay] Coding Level of Care Code Acute Code for Chg Fwd Diagnoses Hypertension I10 Hypothyroidism E03.9 Hyponatremia E87.1 Intractable nausea and vomiting R11.2 Duodenitis K29.80 Ileus K56.7 UTI (urinary tract infection) N39.0
--- NOTE | 2024-04-10 12:34 | PC.SOCIAL ---
IMM update Pg. 2 of IMM updated and reviewed with patient, who verbalized understanding. Copy provided.
[2024-04-10 13:07] VITALS: BP 173/84; PULSE 68; RESP 19; TEMP 36.5; O2SAT 98
== END 2024-04-10 13:08 | disposition home or self-care (01) | DRG 389 ==
LOC: ER 20:00 → MEDSURG 04-08 00:39
PROVIDERS: Emergency Medicine; Family Medicine; Admitting Provider Internal Medicine; Emergency Provider Emergency Medicine; PCP Electrodiagnostic Medicine; Visit Provider Family Medicine
DX: K56.600 Partial intestinal obstruction, unspecified as to cause (principal); E87.1 Hypo-osmolality and hyponatremia; N39.0 Urinary tract infection, site not specified; G51.0 Bell's palsy; E03.9 Hypothyroidism, unspecified; I10 Essential (primary) hypertension; E87.8 Other disorders of electrolyte and fluid balance, not elsewhere classified; E11.9 Type 2 diabetes mellitus without complications; K56.7 Ileus, unspecified; K52.9 Noninfective gastroenteritis and colitis, unspecified; Z79.82 Long term (current) use of aspirin; Z85.831 Personal history of malignant neoplasm of soft tissue
CPT/HCPCS: 36415; 71045; 74018; 74176; 80053; 81003; 81015; 83605; 83690; 83735; 84100; 84145; 85025; 87077; 87086; 87186; 96361; 96372; 96374; 96375; 99285; J0360; J0696; J1644; J2405; J2470; J7030

== ENCOUNTER → 2024-04-13 10:16 | Outpatient (BNVA) | payer MEDICARE, SELFPAY | PROVIDERS: PCP Electrodiagnostic Medicine; Visit Provider Student in an Organized Health Care Education/Training Program | DX: Z09 Encounter for follow-up examination after completed treatment for conditions other than malignant neoplasm (principal) | CPT/HCPCS: 99204; 99213 ==

== ENCOUNTER 2024-05-15 07:59 | Day surgery (SDC) | payer MEDICARE, SELFPAY ==
[2024-05-15 08:24] VITALS: BP 197/81; PULSE 55; RESP 18; TEMP 36.4; O2SAT 97; BMI 32.0
[2024-05-15] MEDS: sodium chloride 0.9% 1,000 ML 30 ML IV (08:36)
--- NOTE | 2024-05-15 08:36 | W.PM.OPSUD ---
Surgery/Procedure H&P Update DATE OF PROCEDURE: May 15, 2024 DATE H&P PERFORMED: 04/13/24 H&P UPDATE INFORMATION: I have reviewed H&P completed within last 30 days, I have examined patient prior to procedure and No changes to prior documentation PLANNED PROCEDURE: Operation Date: 05/15/24 09:30 Proposed Procedures p EGD - 10547, K29.80,(Not Applicable) - Anjel Tony MD
[2024-05-15 08:52] LABS: Glucose Point of Care 93 mg/dL (70-110)
--- NOTE | 2024-05-15 09:05 | ANES.PREANE2 ---
Pre-Anesthetic Assessment Height/Weight: Height 1.57 m Weight 79.379 kg Temp Pulse Resp BP Pulse Ox O2 Del Method 97.6 F 55 L 18 197/81 97 Room Air 05/15/24 08:24 05/15/24 08:24 05/15/24 08:24 05/15/24 08:24 05/15/24 08:24 05/15/24 08:24 Preop Diagnosis: duodenitis Operation Date: 05/15/24 09:30 Proposed Procedures p EGD - 03163, K29.80,(Not Applicable) - Anjel Tony MD Familial anesthetic complications: N&V Was Beta Edgardo taken within 24 hours: Yes Was Clonidine taken within 24 hours: N/A Last intake: Intake Last Liquid Date 05/14/24 Last Liquid Time 21:00 Last Solid Date 05/14/24 Last Solid Time 12:00 Social No alcohol and No tobacco Exam alert, oriented x 3, clear to auscultation bilaterally and regular rate & rhythm Airway Submandibular: within normal limits Cervical ROM: within normal limits Mallampati: Class II Dentition: full Pulmonary Sleep Apnea CV/HEM Hypertension None reported Hepatic None reported GI Gastroesophageal Reflux Disease Metabolic Diabetes Mellitus, Hyperlipidemia and Thyroid Disease [facility] None reported Neuropsych None reported Anesthetic Plan ASA status: 3 Anesthesia: MAC Risk of > 500 ml blood loss (7ml/kg in children): No Medications/Allergies Home Medications Medication Instructions Recorded Confirmed Last Taken Type levothyroxine 50 mcg capsule 50 mcg PO DAILY@0500 10/13/19 05/15/24 05/15/24 History rosuvastatin 5 mg tablet (Crestor) 5 mg PO DAILY@0910/13/19 05/15/24 05/14/24 History cholecalciferol (vitamin D3) 25 25 mcg PO DAILY@2100 02/26/21 05/15/24 05/13/24 History mcg (1,000 unit) capsule (Vitamin D3) coenzyme Q10 50 mg tablet 50 mg PO DAILY@0902/26/21 05/11/24 05/10/24 History artifi.tears(hypromellose)(PF) 0.3 1 drp ophthalmic (eye) Q6H PRN dry 02/27/21 05/15/24 05/14/24 Rx % eye drops eyes 20 days #10 mL eye patch (Eye Pad) #1 ea 07/22/21 09/05/24 Unknown Rx meclizine 25 mg tablet 12.5 mg (1/2 x 25 mg) PO TID PRN 02/27/21 05/15/24 05/11/24 Rx vertigo #14 tabs metoprolol tartrate 50 mg tablet 100 mg (2 x 50 mg) PO BID@, 30 02/27/21 05/11/24 05/11/24 Rx days #60 tabs ondansetron HCl 4 mg tablet 4 mg PO DAILY PRN Nausea 04/07/24 05/15/24 05/14/24 History sucralfate 1 gram tablet 1 g PO BID 12 weeks #168 tabs 04/10/24 05/15/24 05/13/24 Rx metformin 500 mg tablet,extended 500 mg PO DAILY 05/11/24 05/15/24 05/14/24 History release 24 hr pantoprazole 40 mg tablet,delayed 40 mg PO DAILY 05/11/24 05/15/24 05/11/24 History release (Protonix) Allergies Allergy/AdvReac Type Severity Reaction Status Date / Time ciprofloxacin [From Cipro] Allergy Unknown Verified 05/11/24 09:18 codeine Allergy Unknown Verified 05/11/24 09:18 hydrochlorothiazide Allergy Unknown Verified 05/11/24 09:18 [From Hyzaar] losartan Allergy unknown Verified 05/11/24 09:18 meperidine [From Demerol] Allergy Unknown Verified 05/11/24 09:18 Opioids-Meperidine and Allergy unknown Verified 05/11/24 09:18 Related quinapril Allergy unknown Verified 05/11/24 09:18 tramadol Allergy Unknown Verified 05/11/24 09:18 Current Medications Generic Name Dose Route Start Last Admin Trade Name Freq PRN Reason Stop Dose Admin Sodium Chloride 1,000 mls @ 30 mls/hr 05/15/24 08:15 05/15/24 08:36 Sodium Chloride 0.9% IV 30 mls/hr .Q24H JOSE LUIS Administration PFSH Anesthesia Medical History UTI (urinary tract infection) Hyponatremia Ileus Duodenitis Intractable nausea and vomiting TMJ arthralgia Thyroid Nodule Steroid-induced hyperglycemia 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 Recurrent UTI Overactive bladder Incontinence History of sarcoma myofibroblastic Cancer Hypertension DVT prophylaxis Hypothyroidism Abnormal urinalysis Hypertensive urgency Stroke-like symptoms Diabetes Diet controlled Hypothyroidism Hypertension Vertigo Surgical History Status post hysterectomy Status post bladder repair Status post colonoscopy Normal colonoscopy 2016 ([place]) History of bladder suspension procedure Abdominal tumor Operated on by gynecologic surgeon in [place] 2015 History of hysterectomy / BSO Family History Mother , AT AGE 73-DIABETES,THYROID DISEASE Diabetes Father , FATHER AT AGE 85-DIABETES Diabetes Social History Smoking and tobacco/nicotine status: never used tobacco/nicotine Alcohol intake: never Data Anesthesia Cardiac Studies: Echocardiogram Ultrasound 07/09/20
[2024-05-15 09:56] VITALS: BP 141/73; PULSE 59; RESP 18; TEMP 36.2; O2SAT 95
[2024-05-15 10:05] VITALS: BP 142/75; PULSE 56; RESP 18; TEMP 36.3; O2SAT 96
--- NOTE | 2024-05-15 10:30 | ANE.PACU2 ---
Inpatient post-anesthesia follow up: Airway intact: Yes Vital signs: Temperature 97.4 F Pulse Rate 56 Respiratory Rate 18 Blood Pressure 142/75 Pulse Oximetry 96 Oxygen Delivery Me thod Room Air Oxygen Flow Rate Fraction of Inspir ed Oxygen Hydration adequate: Yes Nausea and vomiting: No Pain level: 1 Mental status: Baseline
== END 2024-05-15 10:30 | disposition home or self-care (01) ==
PROVIDERS: PCP Electrodiagnostic Medicine; Visit Provider Student in an Organized Health Care Education/Training Program
PROC: 0DJ08ZZ Inspection of Upper Intestinal Tract, Via Natural or Artificial Opening Endoscopic (ICD-10-PCS; CPT 43235; principal; 2024-05-15 09:30)
DX: K29.80 Duodenitis without bleeding (principal); K21.00 Gastro-esophageal reflux disease with esophagitis, without bleeding; K29.70 Gastritis, unspecified, without bleeding; G47.30 Sleep apnea, unspecified; I10 Essential (primary) hypertension; K21.9 Gastro-esophageal reflux disease without esophagitis; E11.9 Type 2 diabetes mellitus without complications; E78.5 Hyperlipidemia, unspecified; Z79.84 Long term (current) use of oral hypoglycemic drugs; E03.9 Hypothyroidism, unspecified
CPT/HCPCS: 36416; 43239; 82962; 88305; J2704; J7030

== ENCOUNTER 2024-07-02 17:43 | Emergency (ER) | payer MEDICARE, SELFPAY ==
--- NOTE | 2024-07-02 17:44 | XRR_ITS ---
PROCEDURE INFORMATION: Exam: XR Left Shoulder Exam date and time: 07/02/2024 5:59 PM Age: 74 years old Clinical indication: Injury or trauma; Sprain or strain; Left; Patient HX: Lt shoulder pain post fall; Limited rom TECHNIQUE: Imaging protocol: Radiologic exam of the left shoulder. Views: 2 or more views. COMPARISON: CR XR chest 1V portable [id number] 04/08/2024 4:34 PM FINDINGS: Bones/joints: Comminuted, multi partite fracture of the proximal humerus, with involvement of the surgical neck, anatomic neck and the greater and lesser tuberosities. The glenoid appears intact. The humeral head appears to retain its articulation of the glenohumeral joint. Suggestion of a joint effusion. The remainder of the osseous structures appear intact. Soft tissues: Overlying soft tissue swelling. XR/XR shoulder LT min 2V* [id number] IMPRESSION: Comminuted, multipartite fracture of the proximal humerus, with involvement of the surgical neck, anatomic neck and the greater and lesser tuberosities.
[2024-07-02 17:49] VITALS: BP 204/94; PULSE 66; RESP 20; TEMP 36.4; O2SAT 99; BMI 32.0
--- NOTE | 2024-07-02 18:15 | CTR_ITS ---
PROCEDURE INFORMATION: Exam: CT Left Upper Extremity Without Contrast, Shoulder Exam date and time: 07/02/2024 6:39 PM Age: 74 years old Clinical indication: Injury or trauma; Blunt trauma (contusions or hematomas); Patient HX: C/O severe left shoulder pain with reduced rom after a fall today. TECHNIQUE: Imaging protocol: Computed tomography of the left upper extremity without contrast. Exam focused on the shoulder. Radiation optimization: All CT scans at this facility use at least one of these dose optimization techniques: automated exposure control; mA and/or kV adjustment per patient size (includes targeted exams where dose is matched to clinical indication); or iterative reconstruction. COMPARISON: CR (CHEST, ) 07/02/2024 5:59 PM RADIATION DOSE METRICS: Total DLP (mGy-cm): 246.65 FINDINGS: Bones/joints: Comminuted fracture of the proximal humerus. Fracture lines involve the surgical and anatomic neck, traverse through the greater and lesser tuberosities, with scattered distracted bone fragments and anterior displacement of the humeral shaft. The humeral shaft impacts the anterior aspect of the humeral head, which retains its articulation at the glenohumeral joint. The glenoid is intact. The osseous structures are otherwise unremarkable. Soft tissues: There is pronounced rotator cuff edema and likely intramuscular blood products. There is a small joint effusion. Lungs: The visualized portions of the lungs are unremarkable. CT/CT shoulder LT wo con* [id number] IMPRESSION: 1. Comminuted, multipartite fracture of the proximal humerus involving the surgical neck, the anatomical neck and the greater and lesser tuberosities, with impaction of the shaft on the humeral head, which retains its articulation at the glenohumeral joint. 2. The glenoid is intact.
--- NOTE | 2024-07-02 18:21 | ED_ITS ---
HPI - Fall General: Chief Complaint: Fall Stated Complaint: fell, left shoulder injury Time Seen by Provider: 07/02/24 17:49 Source: patient Mode of arrival: ambulatory Limitations: no limitations History of Present Illness: 74-year-old female states she had a fall this evening at [employer] states she tripped and fell landed on her left shoulder. States she has severe left shoulder pain she rates a 9 out of 10. She denies any head or neck injuries. Pain is much worse with movement Associated symptoms-after fall: Denies abdominal pain, chest pain, headache(s) or neck pain Related Data Home Medications Medication Instructions Recorded Confirmed levothyroxine 50 mcg capsule 50 mcg PO DAILY@0500 10/13/19 05/15/24 rosuvastatin 5 mg tablet (Crestor) 5 mg PO DAILY@0900 10/13/19 05/15/24 cholecalciferol (vitamin D3) 25 25 mcg PO DAILY@2100 02/26/21 05/15/24 mcg (1,000 unit) capsule (Vitamin D3) coenzyme Q10 50 mg tablet 50 mg PO DAILY@0902/26/21 05/11/24 ondansetron HCl 4 mg tablet 4 mg PO DAILY PRN Nausea 04/07/24 05/15/24 metformin 500 mg tablet,extended 500 mg PO DAILY 05/11/24 05/15/24 release 24 hr pantoprazole 40 mg tablet,delayed 40 mg PO DAILY 05/11/24 05/15/24 release (Protonix) Previous Rx's Medication Instructions Recorded artifi.tears(hypromellose)(PF) 0.3 1 drp ophthalmic (eye) Q6H PRN dry 02/27/21 % eye drops eyes 20 days #10 mL eye patch (Eye Pad) #1 ea 02/27/21 meclizine 25 mg tablet 12.5 mg (1/2 x 25 mg) PO TID PRN 02/27/21 vertigo #14 tabs metoprolol tartrate 50 mg tablet 100 mg (2 x 50 mg) PO BID@02/27/21 days #60 tabs sucralfate 1 gram tablet 1 g PO BID 12 weeks #168 tabs 04/10/24 hydrocodone 5 mg-acetaminophen 325 1 tab PO Q6H PRN pain #14 tabs 07/02/24 mg tablet Allergies Allergy/AdvReac Type Severity Reaction Status Date / Time ciprofloxacin [From Cipro] Allergy Unknown Verified 07/02/24 17:52 codeine Allergy Unknown Verified 07/02/24 17:52 hydrochlorothiazide Allergy Unknown Verified 07/02/24 17:52 [From Hyzaar] losartan Allergy unknown Verified 07/02/24 17:52 meperidine [From Demerol] Allergy Unknown Verified 07/02/24 17:52 Opioids-Meperidine and Allergy unknown Verified 07/02/24 17:52 Related quinapril Allergy unknown Verified 07/02/24 17:52 tramadol Allergy Unknown Verified 07/02/24 17:52 Review of Systems Const: Denies: fever(s), chills, body aches or change in appetite ENMT: Denies: throat pain or dental pain Card: Denies: chest pain Resp: Denies: dyspnea GI: Denies: abdominal pain, nausea, vomiting or diarrhea Musc: Reports: extremity pain; Denies: neck pain or back pain Skin/Breast: Denies: rash Neuro: Denies: headache(s) Psych: Denies: depression Carlos/Lymph: Denies: easy bruising All/Imm: Denies: urticaria PFSH ED PFSH: Medical History UTI (urinary tract infection) Hyponatremia Ileus Duodenitis Intractable nausea and vomiting TMJ arthralgia Thyroid Nodule Steroid-induced hyperglycemia 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 Recurrent UTI Overactive bladder Incontinence History of sarcoma myofibroblastic Cancer Hypertension DVT prophylaxis Hypothyroidism Abnormal urinalysis Hypertensive urgency Stroke-like symptoms Diabetes Diet controlled Hypothyroidism Hypertension Vertigo Surgical History Status post hysterectomy Status post bladder repair Status post colonoscopy Normal colonoscopy 2016 ([place]) History of bladder suspension procedure Abdominal tumor Operated on by gynecologic surgeon in [place] 2016 History of hysterectomy / BSO Family History Mother , AT AGE 73-DIABETES,THYROID DISEASE Diabetes Father , FATHER AT AGE 85-DIABETES Diabetes Social History Smoking and tobacco/nicotine status: never used tobacco/nicotine Alcohol intake: never Physical Exam Const: COMMON NORMALS: no acute distress, patient oriented x3 and healthy appearing HENMT: COMMON NORMALS: normocephalic and atraumatic HEAD & SCALP: normocephalic and atraumatic Neck/C-Spine: COMMON NORMALS: full ROM and supple Chest: COMMONS NORMALS: normal inspection of the chest Resp: COMMON NORMALS: normal respiratory effort Cardio: COMMON NORMALS: regular rate, regular rhythm and No murmurs present (Cardio) RATE: regular rate RHYTHM: regular rhythm Extremity: NARRATIVE EXTREMITY EXAM: Tenderness to left shoulder distal pulses sensation intact Neuro: COMMON NORMALS: patient oriented x3, moves all extremities and no focal motor deficits Psych: COMMON NORMALS: mental status grossly normal, Normal thought process present and cooperative THOUGHT PROCESS: Normal thought process present Skin: COMMON NORMALS: no rashes or lesions noted and no wounds GENERAL SKIN EXAM: no rashes or lesions noted Course Vital Signs: Vital signs: Vital Signs Temperature 97.5 F L 07/02/24 17:49 Pulse Rate 99 07/02/24 19:29 Respiratory Rate 20 H 07/02/24 17:49 Blood Pressure 199/105 07/02/24 19:29 Pulse Oximetry 90 07/02/24 19:29 Oxygen Delivery Me thod Room Air 07/02/24 19:29 MDM - Fall Medical Decision Making Patient presents here with humerus fracture from a fall no signs of dislocation will place in a sling I spoke to orthopedist Dr. Miner will have her follow-up with him next week she is return if worsening. Medical Records I reviewed the patient's medical records. Lab Data Radiology Impressions Shoulder X-Ray 07/02/24 17:44 IMPRESSION: Comminuted, multipartite fracture of the proximal humerus, with involvement of the surgical neck, anatomic neck and the greater and lesser tuberosities. Shoulder CT 07/02/24 18:15 IMPRESSION: 1. Comminuted, multipartite fracture of the proximal humerus involving the surgical neck, the anatomical neck and the greater and lesser tuberosities, with impaction of the shaft on the humeral head, which retains its articulation at the glenohumeral joint. 2. The glenoid is intact. All radiology interpretation(s) finalized by discharge Discharge Plan Discharge Patient Disposition: Home Clinical Impression: Closed left humeral fracture Qualifiers: Encounter type: initial encounter Humerus Location: proximal Condition: Stable Prescriptions: New hydrocodone-acetaminophen 5-325 mg tablet 1 tab PO Q6H PRN (Reason: pain) Qty: 14 0RF No Action rosuvastatin [Crestor] 5 mg tablet 5 mg PO DAILY@0900 levothyroxine 50 mcg capsule 50 mcg PO DAILY@0500 cholecalciferol (vitamin D3) [Vitamin D3] 25 mcg (1,000 unit) Capsule 25 mcg PO DAILY@2100 coenzyme Q10 50 mg Tablet 50 mg PO DAILY@0900 artifi.tears(hypromellose)(PF) 0.3 % drops 1 drp ophthalmic (eye) Q6H PRN (Reason: dry eyes) 20 Days Qty: 10 5RF metoprolol tartrate 50 mg tablet 100 mg PO BID@09,21 30 Days Qty: 60 1RF (DME) Eye Pad Pad See Rx Instructions .Route Qty: 1 0RF Rx Instructions: As directed meclizine 25 mg tablet 12.5 mg PO TID PRN (Reason: vertigo) Qty: 14 0RF ondansetron HCl 4 mg tablet 4 mg PO DAILY PRN (Reason: Nausea) sucralfate 1 gram tablet 1 g PO BID 84 Days Qty: 168 0RF metformin 500 mg tablet extended release 24 hr 500 mg PO DAILY pantoprazole [Protonix] 40 mg tablet,delayed release (DR/EC) 40 mg PO DAILY Discharge Orders: Discharge ED (Routine); Ordered 07/02/24 Ordered By: Subha Haskins Referrals: Joseph Enrique DO [Primary Care Provider] - Kyle Miner DO [Physician] - 4-7 days Discharge Diet: Advance as tolerated Discharge Activity: Increase activity as tolerated Patient Instructions: Arm Fracture in Adults (ED), Opioid Safety Coding Level of Care Code ED Senior Java Ui Developer for Nataliia Alcala
[2024-07-02] MEDS: HYDROcodone-acetaminophen 5-325 mg Tablet 1 TAB PO (18:25)
[2024-07-02 18:34] VITALS: PULSE 85; O2SAT 99
--- NOTE | 2024-07-02 18:35 | PC.NURSE ---
PT PRESENTS WITH COMPLAINT OF LEFT SHOULDER INJURY POST FALL. PT UNABLE TO MOVE SHOULDER WITHOUT EXTREME PAIN. PT DENIES HITTING HER HEAD WHEN SHE FELL. PT DENIES LOC. PT HYPERTENSIVE UPON ASSESSMENT, PT STATES SHE HAS HX OF HTN. PT ALERT AND ORIENTED.
[2024-07-02 19:29] VITALS: BP 199/105; PULSE 99; O2SAT 90
--- NOTE | 2024-07-02 19:41 | PC.NURSE ---
Pt sent home with Hydrocodone 5/[address] Haskins's order.
[2024-07-02 19:50] VITALS: BP 199/105; PULSE 90; RESP 18; O2SAT 96
--- NOTE | 2024-07-03 09:02 | DCPLANNER ---
messaged ortho for er f/u
== END 2024-07-02 19:44 | disposition home or self-care (01) ==
PROVIDERS: Emergency Provider Emergency Medicine; PCP Electrodiagnostic Medicine
DX: S42.202A Unspecified fracture of upper end of left humerus, initial encounter for closed fracture (principal); Z79.84 Long term (current) use of oral hypoglycemic drugs; E11.9 Type 2 diabetes mellitus without complications; I10 Essential (primary) hypertension; Z85.9 Personal history of malignant neoplasm, unspecified
CPT/HCPCS: 73030; 73200; 99284

== ENCOUNTER → 2024-07-11 09:16 | Outpatient (BNVA) | payer MEDICARE, SELFPAY | PROVIDERS: PCP Electrodiagnostic Medicine; Visit Provider Student in an Organized Health Care Education/Training Program | DX: S42.202A Unspecified fracture of upper end of left humerus, initial encounter for closed fracture; W19.XXXA Unspecified fall, initial encounter | CPT/HCPCS: 73030; 99204 ==

== ENCOUNTER 2024-07-13 09:10 | Day surgery (SDC) | payer MEDICARE, SELFPAY ==
[2024-07-13] VITALS (20 sets, daily range): BP systolic 143–223; BP diastolic 66–178; PULSE 72–104; RESP 12–21; TEMP 36.3–36.4; O2SAT 93–100
--- NOTE | 2024-07-13 | XR_ITS ---
WS: [id number] [id number] REASON FOR EXAM: SILVESTRE PICS FINDINGS: Intramedullary baldomero and transverse screw fixation of complex multipart fracture of the surgical neck o f the humerus with significant displacement. Fracture fragments are now in good apposition and alignment. The surgical appliances intact and in pr oper position and alignment. XR/[place] [id number] IMPRESSION: Internal fixation of surgical neck fracture reducing the displacement and creat ing near-anatomic alignment of the fracture fragments.
[2024-07-13] MEDS: sodium chloride 0.9% 1,000 ML 30 ML IV (10:12)
[2024-07-13] MEDS: acetaminophen 1,000 MG/100 ML PIGGYBACK 400 MG IV (10:13)
[2024-07-13] MEDS: ketorolac 30 mg/mL INJ IVP (10:16)
[2024-07-13 10:31] LABS: Glucose Point of Care 113 mg/dL (70-110)
--- NOTE | 2024-07-13 10:34 | W.PM.OPSUD ---
Surgery/Procedure H&P Update DATE OF PROCEDURE: July 13, 2024 DATE H&P PERFORMED: 07/11/24 H&P UPDATE INFORMATION: I have reviewed H&P completed within last 30 days, I have examined patient prior to procedure and No changes to prior documentation PREOP DIAGNOSIS: Left proximal humerus fracture PRIMARY INDICATION FOR PROCEDURE: Left proximal humerus fracture comminuted and displaced PLANNED PROCEDURE: Operation Date: 07/13/24 11:10 Proposed Procedures p ORIF Proximal Humerus(Left) - Kyle Miner DO
--- NOTE | 2024-07-13 11:03 | P.ANESASSM_ITS ---
Pre-Anesthetic Assessment Height/Weight: Height 5 ft 2 in Weight 170 lb O2 Del Method Room Air 07/13/24 09:58 Preop Diagnosis: Left proximal humerus fracture Operation Date: 07/13/24 11:10 Proposed Procedures p ORIF Proximal Humerus(Left) - Kyle Chavezatt, DO Was Beta Edgardo taken within 24 hours: Yes Was Clonidine taken within 24 hours: N/A Last intake: Intake Last Liquid Date 07/12/24 Last Liquid Time 22:00 Last Solid Date 07/12/24 Last Solid Time 12:00 Social No alcohol and No tobacco Exam alert, oriented x 3, clear to auscultation bilaterally and regular rate & rhythm Airway Submandibular: within normal limits Cervical ROM: within normal limits Mallampati: Class III Dentition: full Anesthetic Plan ASA status: 3 Anesthesia: General Other: No prior issues with anesthesia NPO since yesterday Patient fell 06/28/2024, no injury to her head Prior sarcoma of the pelvis, resection 4 years ago Hypothyroidism on Synthroid Type 2 diabetes on metformin. Preop BS 113 EKG showing sinus rhythm with first-degree AV block Plan for general anesthesia Medications/Allergies Home Medications Medication Instructions Recorded Confirmed Last Taken Type levothyroxine 50 mcg capsule 50 mcg PO DAILY@0500 10/13/19 07/13/24 07/13/24 History rosuvastatin 5 mg tablet (Crestor) 5 mg PO DAILY@0900 10/13/19 07/13/24 07/12/24 History cholecalciferol (vitamin D3) 25 25 mcg PO DAILY@2100 02/26/21 07/13/24 05/13/24 History mcg (1,000 unit) capsule (Vitamin D3) coenzyme Q10 50 mg tablet 50 mg PO DAILY@0900 02/26/21 07/13/24 07/12/24 History artifi.tears(hypromellose)(PF) 0.3 1 drp ophthalmic (eye) Q6H PRN dry 02/27/21 07/13/24 07/11/24 Rx % eye drops eyes 20 days #10 mL eye patch (Eye Pad) #1 ea 02/27/21 07/13/24 Unknown Rx meclizine 25 mg tablet 12.5 mg (1/2 x 25 mg) PO TID PRN 02/27/21 07/13/24 07/11/24 Rx vertigo #14 tabs metoprolol tartrate 50 mg tablet 100 mg (2 x 50 mg) PO BID@ 30 02/27/21 07/13/24 07/13/24 Rx days #60 tabs ondansetron HCl 4 mg tablet 4 mg PO DAILY PRN Nausea 04/07/24 07/13/24 07/11/24 History metformin 500 mg tablet,extended 500 mg PO 2XD 05/11/24 07/13/24 07/12/24 History release 24 hr hydrocodone 5 mg-acetaminophen 325 1 tab PO Q6H PRN pain #14 tabs 07/02/24 07/13/24 Unknown Rx mg tablet diphenhydramine 25 1 tab PO Q4H PRN Pain 07/13/24 07/13/24 07/12/24 History mg-acetaminophen 500 mg tablet (Acetaminophen PM) Allergies Allergy/AdvReac Type Severity Reaction Status Date / Time ciprofloxacin [From Cipro] Allergy Unknown Verified 07/12/24 09:11 codeine Allergy Unknown Verified 07/12/24 09:11 hydrochlorothiazide Allergy Unknown Verified 07/12/24 09:11 [From Hyzaar] losartan Allergy unknown Verified 07/12/24 09:11 meperidine [From Demerol] Allergy Unknown Verified 07/12/24 09:11 Opioids-Meperidine and Allergy unknown Verified 07/12/24 09:11 Related quinapril Allergy unknown Verified 07/12/24 09:11 tramadol Allergy Unknown Verified 07/12/24 09:11 Current Medications Generic Name Dose Route Start Last Admin Trade Name Freq PRN Reason Stop Dose Admin Sodium Chloride 1,000 mls @ 30 mls/hr 07/13/24 09:45 07/13/24 10:12 Sodium Chloride 0.9% IV 07/14/24 09:44 30 mls/hr .Q24H JOSE LUIS Administration PFSH Anesthesia Medical History UTI (urinary tract infection) Hyponatremia Ileus Duodenitis Intractable nausea and vomiting TMJ arthralgia Thyroid Nodule Steroid-induced hyperglycemia 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 Recurrent UTI Overactive bladder Incontinence History of sarcoma myofibroblastic Cancer Hypertension DVT prophylaxis Hypothyroidism Abnormal urinalysis Hypertensive urgency Stroke-like symptoms Diabetes Diet controlled Hypothyroidism Hypertension Vertigo Surgical History Status post hysterectomy Status post bladder repair Status post colonoscopy Normal colonoscopy 2015 ([place]) History of bladder suspension procedure Abdominal tumor Operated on by gynecologic surgeon in [place] 2015 History of hysterectomy / BSO Family History Mother , AT AGE 73-DIABETES,THYROID DISEASE Diabetes Father , FATHER AT AGE 85-DIABETES Diabetes Social History Smoking and tobacco/nicotine status: never used tobacco/nicotine Alcohol intake: never Data Anesthesia Cardiac Studies: Echocardiogram Ultrasound 07/09/20
[2024-07-13] MEDS: ceFAZolin 2,000 MG in sodium chloride 0.9% (plus) 50 ML 100 MG IV (11:40)
--- NOTE | 2024-07-13 14:00 | W.PM.BPON ---
Date of Procedure: 07/13/2024 Surgeon: Kyle Miner DO Wood Form Builder(s): None Procedure(s) performed: Left proximal humerus open reduction internal fixation with proximal humeral nail Findings of the procedure(s): Patient found to have comminuted left proximal humerus fracture underwent ORIF with humeral nail but issues or complications. Estimated blood loss: 25mL Specimen(s) removed: None Post-operative diagnosis: Left comminuted proximal humerus fracture displaced
--- NOTE | 2024-07-13 14:05 | PM.OP ---
Operative Report Date of procedure: July 13, 2024 Pre-op diagnosis: Displaced left proximal humerus fracture Post-op diagnosis: Same Post-op findings: See operative report narrative Procedure done: Left proximal humerus open reduction internal fixation with proximal humeral nail Implants: Estevan 8 mm x 150 mm proximal humeral nail 5 mm locking screw fully threaded (45 mm, 45 mm, 35 mm) 45mm partially-threaded wasted as this did not go through the locking nail 4 mm distal locking screw 28 mm Surgeon: Kyle Miner DO It Application Administrator: None Anesthesia: General Estimated blood loss: 25 mL IV fluids: 800 mL Complications: None Findings: See operative report narrative Condition: stable Disposition: same day Brief History: Patient is a pleasant 74-year-old female who sustained a comminuted fracture with significant displacement and translation of the surgical neck left proximal humerus fracture. Patient is fairly active given her displacement as well as persistent pain and no improvement in her alignment from her last imaging we talked about her treatment options far as nonoperative operative mention. At this point time through shared decision making patient family would like to pursue surgical intervention for left proximal humerus ORIF with goals would be through a humeral nail we talked about the details of the procedure in's and outs as well as risk benefits complication alternatives surgery and through shared decision-making elects proceed with surgical intervention. All questions answered at this time. Procedure: Patient seen eval in the preoperative holding area. Consent was reviewed and signed with patient. Correct extremity was then subsequently marked. Patient was then seen eval by anesthesia was cleared for surgery she was taken back to the operative suite. Patient was transported onto the OR table In supine position all bony problems well-padded patient appropriate care to bed she subsequently went anesthesia per the anesthesia part with. Once properly anesthetized we then positioned the patient with a semibeachchair position and set up having x-ray come from the opposite side. Once appropriately positioned and secured to the bed and all bony promises well-padded we then subsequently prepped and draped the left upper extremity in standard orthopedic fashion. Final timeout performed. Patient received appropriate preoperative antibiotics. This point time a standard longitudinal incision was made off of the anterior lateral corner of the acromion sharp scalpel incision was made through skin and subcutaneous tissue and switched to Littler dissection scissors dissected off the deltoid fascia and came down directly over the raphae of the deltoid splitting the anterior third to the two thirds of the deltoid fibers split longitudinally came down directly over the rotator cuff. I then utilized blunt dissection to free up any adhesions and at this point in time is already had decompressed the fracture at this site I then subsequently thoroughly irrigated the fracture site decompressing the hematoma it was noted patient had significant comminution at surgical neck and translation I was able to perform a traction and reduction manually with my hands through this incision site as well as traction longitudinally was able achieve a satisfactory and acceptable reduction for this patient with fluoroscopic imaging once a satisfied with this my mobile sales assistant held this reduction. I did notice there was significant comminution of the lateral cortex as well as of the tuberosities. In order for better control of these my plan was to place 2 tag stitches fiber wire into the rotator cuff this was then performed and I had to sutures controlling the comminuted tuberosity fragments that the rotator cuffs were attached to. Plan was to tie these into bilateral screws just as a repair. Then subsequently utilized the starting guidewire pierces through the rotator cuff longitudinal fibers and then once I obtained the satisfactory starting point position in the sulcus of the articular margin and greater tuberosity I then utilized a mallet to tamp this down I took orthogonal images to confirm satisfactory position from the AP as well as the lateral being in center center position this was advanced and then subsequently utilized my opening reamer. At this point in time I then reamed for a 8 mm proximal humeral nail which would give me satisfactory length and fixation distal. This was then subsequently loaded and advanced in satisfactory position.. At this point in time I then subsequently utilized the proximal locking devices. I then subsequently while the reduction was continually held utilized the locking devices triple sleeve I started off with the direct lateral this was subsequently drilled measured and appropriate length screw was then applied it was noted that the lateral cortex was significantly comminuted and extremely thin once the screw bit in this comminuted the lateral cortex. This still had excellent fixation medially into the head. I then subsequently drilled 2 more additional oblique screws to interlock into the nail and into the head to obtain my proximal fixation. These 2 before I completely secured these down I pulled my rotator cuff tag suture anchors last of these around the screw head and then subsequently tied these and advanced this screw this subsequently pulled the rotator cuff and the tuberosity pieces into satisfactory position. While locking the nail proximally. Once again this was significant comminution which did not have much cortices laterally to purchase off however the medial screws bed into the medial head and had good fixation I then subsequently switched distally from my distal locking screw for final fixation but this in the static locking hole position this was subsequently the triple sleeve was then marked and made a small stab skin incision this is subsequently drilled measured appropriate length screw and had excellent fixation distally. At this point in time I took the shoulder through range of motion with fluoroscopic imaging there is no screws penetrating into the head the fracture was stable at this point in time much improved and patient's overall alignment into satisfactory nonoperative treatment measures. At this point in time satisfied fixation the targeting guide was then subsequently removed. I then thoroughly irrigated the wound bed. Hemostasis was maintained with electrocautery. I then subsequently repaired the small rent the rotator cuff from the nail. The deltoid fascia was then closed with 0 Vicryl, 2-0 Vicryl for the subcutaneous tissue and then the skin was then closed with suture and Steri-Strips. Distal incision was then closed with simple interrupted suture. Patient was then dressed with Silverlon and was placed in a sling patient then was awakened from anesthesia and taken to PACU in stable condition. Disposition: Patient taken PACU stable condition recovering well we will follow-up in the orthopedic office in 2 weeks given appropriate instructions as well as pain medication postoperatively. All questions answered.
[2024-07-13] MEDS: ketorolac 30 mg/mL INJ 15 MG IVP (14:30)
[2024-07-13] MEDS: ondansetron 2 mg/ML SDV 2 mL 4 MG IVP ×2 (14:35→14:46)
[2024-07-13] MEDS: ondansetron 2 mg/ML SDV 2 mL 4 MG (14:51)
[2024-07-13] MEDS: hyDRALAzine 20 mg/mL INJ 1 mL 10 MG IVP (14:52)
[2024-07-13] MEDS: metoclopramide 5 mg/mL SDV 2 mL 10 MG IVP ×2 (14:59→15:06)
--- NOTE | 2024-07-13 16:55 | ANE.PACU2 ---
Inpatient post-anesthesia follow up: Airway intact: Yes Vital signs: Temperature 97.4 F Pulse Rate 95 Respiratory Rate 18 Blood Pressure 153/69 Pulse Oximetry 99 Oxygen Delivery Me thod Room Air Oxygen Flow Rate 2 Fraction of Inspir ed Oxygen Hydration adequate: Yes Nausea and vomiting: No Pain level: 1 Mental status: Baseline
== END 2024-07-13 16:55 | disposition home or self-care (01) ==
PROVIDERS: PCP Electrodiagnostic Medicine; Visit Provider Student in an Organized Health Care Education/Training Program
PROC: (CPT 23615; principal; 2024-07-13 11:10)
DX: S42.202A Unspecified fracture of upper end of left humerus, initial encounter for closed fracture (principal); W19.XXXA Unspecified fall, initial encounter; Y92.22 Religious institution as the place of occurrence of the external cause; E03.9 Hypothyroidism, unspecified; E11.9 Type 2 diabetes mellitus without complications; Z79.84 Long term (current) use of oral hypoglycemic drugs; I10 Essential (primary) hypertension
CPT/HCPCS: 23615; 36416; 73060; 76000; 82962; C1713; J0131; J0360; J0690; J1100; J1171; J1885; J2405; J2704; J2765; J3010; J3490; J7030

== ENCOUNTER → 2024-07-27 10:49 | Outpatient (BNVA) | payer MEDICARE, SELFPAY | PROVIDERS: PCP Electrodiagnostic Medicine; Visit Provider Student in an Organized Health Care Education/Training Program | DX: S42.202A Unspecified fracture of upper end of left humerus, initial encounter for closed fracture; X58.XXXA Exposure to other specified factors, initial encounter | CPT/HCPCS: 73030; 73060 ==

== ENCOUNTER 2024-07-27 12:03 | Outpatient (CLI) | payer MEDICARE, SELFPAY | END 2024-07-27 12:04 | disposition home or self-care (01) | LOC: SPT 12:04 | PROVIDERS: PCP Electrodiagnostic Medicine; Visit Provider Student in an Organized Health Care Education/Training Program | DX: Z46.89 Encounter for fitting and adjustment of other specified devices (principal); S42.302D Unspecified fracture of shaft of humerus, left arm, subsequent encounter for fracture with routine healing; X58.XXXD Exposure to other specified factors, subsequent encounter | CPT/HCPCS: A4565 ==

== ENCOUNTER 2024-08-28 12:39 | Outpatient (CLI) | payer MEDICARE, SELFPAY ==
--- NOTE | 2024-08-28 12:43 | XR_ITS ---
WS: [id number] DEXA (DUAL ENERGY X-RAY ABSORPTIOMETRY) Bone mineral density was performed using a [employer] machine. HISTORY: OSTEOPOROSIS COMPARISON: None available. Lumbar spine BMD (L1-L4): 1.050 g/cm2 T score: -1.1 Z score: 0.3 Total hip BMD: Left: 0.950 g/cm2. T score: -0.5 Z score: 1.1 Right: 0.953 g/cm2. T score: -0.4 Z score: 1.1 10 year probability of a major osteoporotic fracture is 21.7%. XR/XR DEXA axial skeleton* [id number] IMPRESSION: OSTEOPENIA based upon the WHO classification for females.
== END 2024-08-28 12:40 | disposition home or self-care (01) ==
LOC: RAD 12:41
PROVIDERS: PCP Electrodiagnostic Medicine; Visit Provider Electrodiagnostic Medicine
DX: M81.0 Age-related osteoporosis without current pathological fracture (principal); M85.80 Other specified disorders of bone density and structure, unspecified site
CPT/HCPCS: 77080

== ENCOUNTER → 2024-08-31 13:04 | Outpatient (BNVA) | payer MEDICARE, SELFPAY | PROVIDERS: PCP Electrodiagnostic Medicine; Visit Provider Student in an Organized Health Care Education/Training Program | DX: S42.202A Unspecified fracture of upper end of left humerus, initial encounter for closed fracture (principal); X58.XXXA Exposure to other specified factors, initial encounter | CPT/HCPCS: 73030; 99213 ==

== ENCOUNTER → 2024-10-31 15:33 | Outpatient (BNVA) | payer MEDICARE, SELFPAY | PROVIDERS: PCP Electrodiagnostic Medicine; Visit Provider Student in an Organized Health Care Education/Training Program | DX: S42.202D Unspecified fracture of upper end of left humerus, subsequent encounter for fracture with routine healing (principal); X58.XXXD Exposure to other specified factors, subsequent encounter | CPT/HCPCS: 73060; 99213 ==

== ENCOUNTER → 2025-01-30 09:36 | Outpatient (BNVA) | payer MEDICARE, SELFPAY | PROVIDERS: PCP Electrodiagnostic Medicine; Visit Provider Internal Medicine | DX: E07.9 Disorder of thyroid, unspecified (principal) | CPT/HCPCS: 36415; 84439; 84443 ==

== ENCOUNTER 2025-02-07 08:57 | Outpatient (CLI) | payer MEDICARE, SELFPAY ==
--- NOTE | 2025-02-07 09:15 | US_ITS ---
WS: [id number] THYROID ULTRASOUND REASON FOR EXAM: see below TECHNIQUE: Grayscale and Doppler ultrasound examination of the thyroid gland. FINDINGS: RIGHT: Right thyroid gland measures 4.3 cm x 1.9 cm x 1.2 cm. Right thyroid volume equals 4.6 ccm3. Relatively normal echo texture of normal thyroid tissue. An isoechoic nodule 1.4 x 1.2 x 1.7 cm is demonstrated in the lower portion of the right lobe of the thyroid. Moderate blood flow. Hypoechoic rim and through transmission. Small focal areas of increased echogenicity. LEFT: Left thyroid gland measures 3.5 cm x 1.0 cm x 1.3 cm. Left thyroid volume equals 2.1 ccm3. Relatively homogeneous echotexture with no focal lesion. Thyroid isthmus: 0.2 mm. No significant cervical adenopathy. US/US thyroid [id number] IMPRESSION: Solitary right thyroid nodule as above which appears to have the same character and same dimensions as demonstrated on examination of 05/16/2021.
== END 2025-02-07 08:58 | disposition home or self-care (01) ==
LOC: RAD 09:07
PROVIDERS: PCP Electrodiagnostic Medicine; Visit Provider Internal Medicine
DX: E07.9 Disorder of thyroid, unspecified (principal)
CPT/HCPCS: 76536

== ENCOUNTER → 2025-04-03 08:42 | Outpatient (BNVA) | payer MEDICARE, SELFPAY | PROVIDERS: PCP Electrodiagnostic Medicine; Visit Provider Internal Medicine | DX: E03.9 Hypothyroidism, unspecified (principal); E07.9 Disorder of thyroid, unspecified; E04.1 Nontoxic single thyroid nodule | CPT/HCPCS: 99214 ==

== ENCOUNTER 2025-04-05 09:10 | Outpatient (CLI) | payer MEDICARE, SELFPAY ==
[2025-04-05 11:00] LABS: Free T4 Free Thyroxine 1.33 ng/dL (0.82-1.77); Thyroid Stimulating Hormone 1.67 uIU/mL (0.27-4.20)
== END 2025-04-05 09:11 | disposition home or self-care (01) ==
LOC: LAB 09:11
PROVIDERS: PCP Electrodiagnostic Medicine; Visit Provider Internal Medicine
DX: E07.9 Disorder of thyroid, unspecified (principal); L64.8 Other androgenic alopecia; L21.8 Other seborrheic dermatitis; L28.0 Lichen simplex chronicus; L82.1 Other seborrheic keratosis; D22.5 Melanocytic nevi of trunk; L91.8 Other hypertrophic disorders of the skin; L85.3 Xerosis cutis; Z08 Encounter for follow-up examination after completed treatment for malignant neoplasm; Z85.828 Personal history of other malignant neoplasm of skin
CPT/HCPCS: 84439; 84443; 99204